=== PATIENT | female | born 1950 | race Two or more races ===

== ENCOUNTER 2017-01-29 10:30 | Day surgery (SDC) | payer MEDICARE, BC ==
[2017-01-22 15:26] VITALS: BMI 36.2
[~2017-01-29 10:30] MED LIST: CLINDAMYCIN 600 MG in SODIUM CHLORIDE 0.9% IRRIGATIO 250 ML IRRIGATION ONE; CLINDAMYCIN 900 MG in DEXTROSE 5% IN WATER 50 ML IVPB ONE; LACTATED RINGERS 1,000 ML IV SCH; SODIUM CHLORIDE 0.9% 1,000 ML IV SCH
[2017-01-29 12:09] LABS: INR 2.3 (<1.2); Prothrombin Time 21.7 sec (9.0-12.0)
[2017-01-29] MEDS ORDERED: MIDAZOLAM 2 MG/2 ML VIAL ONE (13:39)
[2017-01-29] MEDS ORDERED: fentaNYL (PF) 50 MCG/ML 2 ML AMP ONE (13:39)
[2017-01-29] MEDS ORDERED: PROPOFOL 10 MG/ML 20 ML VIAL IV ONE (13:39)
[2017-01-29] MEDS ORDERED: ePHEDrine SULFATE/0.9% NACL/PF 50 MG/5 ML SYRINGE IV ONE (13:39)
[2017-01-29] MEDS ORDERED: LIDOCAINE 1% INJ 10MG/ML (20 ML MDV) ONE (13:39)
[2017-01-29] MEDS ORDERED: IODIXANOL 270 MG/ML 50 ML ML IV ONE (13:55)
[2017-01-29] MEDS ORDERED: LIDOCAINE 1% INJ 10MG/ML (20 ML MDV) SQ ONE (14:18)
[2017-01-29] MEDS ORDERED: ACETAMINOPHEN TAB 325 MG TAB PO PRN (15:04)
--- NOTE | 2017-01-29 15:37 | CE ---
CARDIAC ELECTROPHYSIOLOGY REPORT 66-year-old female with severe ischemic cardiomyopathy that has not improved despite appropriate medical treatment for heart failure and cardiomyopathy. She underwent single-chamber ICD implantation for primary prevention of sudden cardiac . She is on appropriate guideline directed medical treatment. Patient brought to the EP lab in a fasting state. Written informed consent was obtained prior to the procedure. The left shoulder area was prepped and draped as per protocol. 1% lidocaine was used for local anesthesia. A 4 cm incision was made parallel to the deltopectoral groove about 1.5 cm medial to it. The incision was carried down to the level of the pectoralis muscle. A subfascial pocket was made. Hemostasis was assured. The left axillary vein was accessed at a single point under fluoroscopy and via appropriately-sized introducer sheath. A lead was positioned in the RV apex and screwed in. This was a [employer] reliance Forsite SG Active Fix 59 cm lead bipolar, model #0292 serial #[id number]. This was secured to the underlying pectoralis muscle and connected to the generator ([employer] Inogen extended longevity ICD DF4-VR model number D140 serial #[id number]. The R-waves were 6.4 mV. Pacing threshold 0.8 V at 0.5 milliseconds. Pacing impedance of 867 ohms. 10 V test negative. The leads and generator were placed in subfascial pocket and the wound was closed in 3 layers and dressed per protocol. The device was then programmed empirically to Madit-RIT program. DFT testing was withheld at this time. We will bring him back in about 3 months for further maximization of heart failure medications. MMODL / IJN: [id number] /
--- NOTE | 2017-01-29 15:43 | CE ---
CARDIAC ELECTROPHYSIOLOGY REPORT January 29, [address] Gallardo: I had the pleasure of seeing Nicky Ballesteros in electrophysiology in follow up. As you know, Nicky has severe ischemic cardiomyopathy, ejection fraction 30%, class II heart failure symptoms whose left ventricular ejection fraction did not improve despite medical treatment and she underwent a single-chamber ICD implantation for primary prevention of sudden cardiac . She will continue to follow with you. I will see her again in about a week's time in the Device Clinic. No changes in medications at this time. Thank you for entrusting me in the care of your patient. Warm regards. Sincerely, MMODL / IJN: [id number] /
[2017-01-29] MEDS ORDERED: ACETAMINOPHEN IV (For NPO) 1,000 MG in EMPTY BAG 1 BAG IVPB ONE (16:00)
[2017-01-29] MEDS: ceFAZolin IN SWFI 2 GM/20 ML SYRINGE IVP SCH ×2 (18:08→18:26)
[2017-01-29] MEDS: CLINDAMYCIN 600 MG in DEXTROSE 5% IN WATER 50 ML IVPB SCH ×2 (19:43)
[2017-01-29] MEDS ORDERED: WARFARIN 1.25 MG TAB PO SCH (20:30)
[2017-01-29] MEDS ORDERED: WARFARIN 2.5 MG TAB PO SCH (20:45)
[2017-01-29] MEDS ORDERED: EZETIMIBE 10 MG TAB PO SCH (21:00)
[2017-01-29] MEDS ORDERED: PRAVASTATIN SODIUM 20 MG TAB PO SCH (21:00)
[2017-01-29] MEDS: CARVEDILOL 6.25 MG TAB PO SCH (21:03)
[2017-01-29] MEDS: ASPIRIN 81 MG PO SCH (21:03)
[2017-01-29] MEDS: HYDROcodone/APAP 5-325MG 1 EACH TAB PO PRN (23:46)
[2017-01-30] MEDS: CLINDAMYCIN 600 MG in DEXTROSE 5% IN WATER 50 ML IVPB SCH ×6 (02:35→13:30)
--- NOTE | 2017-01-30 06:52 | XR ---
EXAMINATION TYPE: XR chest 2V DATE OF EXAM: 01/30/2017 COMPARISON: NONE HISTORY: Postdefibrillator placement. TECHNIQUE: Frontal and lateral views of the chest are obtained. FINDINGS: There is no focal air space opacity, pleural effusion, or pneumothorax seen. No pulmonary vascular congestion. The cardiac silhouette size is within normal limits. New singular ventricular lead left-sided cardiac device is present with no postprocedural pneumothorax identified. The osseou s structures are intact with mild multilevel degenerative changes of thoracic spine and acromioclavic ular joints. IMPRESSION: New single ventricular lead left-sided cardiac device with no postprocedural pneumothora x or pulmonary vascular congestion.
[2017-01-30] MEDS: HYDROcodone/APAP 5-325MG 1 EACH TAB PO PRN (07:19)
[2017-01-30] MEDS: ASPIRIN 81 MG PO SCH (08:07)
[2017-01-30] MEDS: CARVEDILOL 6.25 MG TAB PO SCH (08:07)
[2017-01-30 08:27] VITALS: PULSE 61; RESP 18
--- NOTE | 2017-01-30 08:30 | P.DS ---
Providers Attending physician: Adan Gale Primary care physician: [facility] Course: Is doing well. She denies any chest discomfort no undue shortness of breath no dizziness or lightheadedness She is resting comfortably in bed. There is no focal swelling in the ICD site dressing Review of systems: No fever chills or rigors, no cough, phlegm or expectoration , no nausea, vomiting or diarrhea, no hematuria, dysuria, no musculoskeletal complaints, no strokes or seizures, no skin lesions. On examination She is afebrile 98.1F, pulse rate in the 60s, respirations are normal blood pressure 107/58 mmHg Heart sounds are normal Breath sounds are clear Abdomen soft nontender Extremities warm no edema ICD site is healing well I educated her on the post op restrictions in detail Impression Ischemic cardiomyopathy CHF class II Patient is on guideline directed medical treatment Status post ICD implantation for primary prevention of sudden cardiac ICD functioning normally my plan is to discharge today after completion of IV antibiotics. Chest x-ray report was reviewed. No changes in medications. Follow-up in the device clinic in 5-7 days and DFT testing in about 3 months Patient Condition at Discharge: Stable Plan - Discharge Summary Discharge Rx Participant: Yes New Discharge Prescriptions: Continue Warfarin [Coumadin] 2.5 mg PO MO Aspirin [Adult Low Dose Aspirin EC] 81 mg PO BID Spironolactone [Aldactone] 25 mg PO QAM Pravastatin Sodium [Pravachol] 20 mg PO HS Losartan Potassium [Cozaar] 150 mg PO QAM Ezetimibe [Zetia] 10 mg PO HS Carvedilol [Coreg] 6.25 mg PO BID Warfarin [Coumadin] 1.25 mg PO [facility] Discharge Medication List Aspirin [Adult Low Dose Aspirin EC] 81 mg PO BID 01/22/17 [History] Carvedilol [Coreg] 6.25 mg PO BID 01/22/17 [History] Ezetimibe [Zetia] 10 mg PO HS 01/22/17 [History] Losartan Potassium [Cozaar] 150 mg PO QAM 01/22/17 [History] Pravastatin Sodium [Pravachol] 20 mg PO HS 01/22/17 [History] Spironolactone [Aldactone] 25 mg PO QAM 01/22/17 [History] Warfarin [Coumadin] 1.25 mg PO SUTUTH 01/22/17 [History] Warfarin [Coumadin] 2.5 mg PO MOWEFRSA 01/22/17 [History] Follow up Appointment(s)/Referral(s): Adan Gale MD [STAFF PHYSICIAN] - 1 Week Activity/Diet/Wound Care/Special Instructions: PATIENT EDUCATION MATERIAL Instructions following a heart rhythm device implant. 1. Keep dressing DRY for ONE week. You may cover the area with Saran or Cling Wrap, prior to a shower. 2. The dressing will be removed after one week in the Device Clinic @ [facility]. Absorbable sutures were used to close the wound. 3. Avoid raising the [left] arm above the shoulder level. [6 week restriction] 4. Avoid arm movements, like backscratching, rubbing the head, or pulling on a cord. (6 weeks restriction) 5. Gentle range of motion movements of the shoulder, closest to the incision should be performed to avoid a frozen shoulder. (Pendulum exercises of the shoulder) 6. The opposite arm may be used freely. 7. Avoid driving for 7 days. 8. Avoid activities such as golfing, swimming, weed whacking, lifting more than 10 pounds weight, bowling, gymnastics and weight training/lifting. (6 weeks restriction) 9. Activities such as wood chopping with an axe, pull-ups in the gymnasium, power lifting, arc-welding, being close to home induction cooktops will always be a problem. In case of any problems, please call [facility], Naeem Grayson, @ [phone], Attention: Device Clinic Clinic in one week. No changes in medications. Follow-up with Dr. Naidu in about 3 months Discharge Disposition: HOME SELF-CARE
[2017-01-30] MEDS ORDERED: SPIRONOLACTONE 25 MG TAB PO SCH (09:00)
[2017-01-30] MEDS ORDERED: LOSARTAN 50 MG TAB PO SCH (09:00)
[2017-01-30 11:27] VITALS: BP 90/52; TEMP 98
[2017-01-30] MEDS ORDERED: WARFARIN 2.5 MG TAB PO SCH (18:00)
== END 2017-01-30 14:30 | disposition home or self-care (01) ==
LOC: CATHEP 10:30 → 3OBS 15:01 → CATHEP 01-30 14:30
PROVIDERS: ATTEND Internal Medicine Clinical Cardiac Electrophysiology
DX: I25.5 Ischemic cardiomyopathy (principal); I11.0 Hypertensive heart disease with heart failure; I50.22 Chronic systolic (congestive) heart failure; Z00.6 Encounter for examination for normal comparison and control in clinical research program; I25.10 Atherosclerotic heart disease of native coronary artery without angina pectoris; Z95.5 Presence of coronary angioplasty implant and graft; I25.2 Old myocardial infarction; I48.0 Paroxysmal atrial fibrillation; I49.3 Ventricular premature depolarization; E78.5 Hyperlipidemia, unspecified; I73.9 Peripheral vascular disease, unspecified; Z82.49 Family history of ischemic heart disease and other diseases of the circulatory system; Z88.0 Allergy status to penicillin; Z88.2 Allergy status to sulfonamides; Z87.891 Personal history of nicotine dependence; Z79.01 Long term (current) use of anticoagulants; Z79.02 Long term (current) use of antithrombotics/antiplatelets; Z79.899 Other long term (current) drug therapy; Z88.1 Allergy status to other antibiotic agents
CPT/HCPCS: 33249; 85610; 71020; C1892; C1895; C1769; C1722; J2250; Q9966; J2001; J3010; J2704

== ENCOUNTER 2017-04-22 06:01 | Day surgery (SDC) | payer MEDICARE, BC ==
[2017-04-15 16:21] VITALS: BMI 36.2
[~2017-04-22 06:01] MED LIST changes: -CLINDAMYCIN 600 MG in SODIUM CHLORIDE 0.9% IRRIGATIO 250 ML IRRIGATION ONE; -CLINDAMYCIN 900 MG in DEXTROSE 5% IN WATER 50 ML IVPB ONE
[2017-04-22] MEDS ORDERED: SODIUM CHLORIDE 0.9% 500 ML IV ONE (06:23)
[2017-04-22 06:56] LABS: INR 2.9 (<1.2); Prothrombin Time 26.4 sec (9.0-12.0)
[2017-04-22] MEDS ORDERED: MIDAZOLAM 2 MG/2 ML VIAL ONE (07:21)
[2017-04-22] MEDS ORDERED: PROPOFOL 10 MG/ML 20 ML VIAL IV ONE (07:21)
[2017-04-22 08:15] VITALS: TEMP 97.2
[2017-04-22 08:17] VITALS: RESP 16
--- NOTE | 2017-04-22 08:20 | P.PCN ---
Preoperative Diagnosis: ICD interrogation/DFT testing [email or web address] device in origin ICD, D 140/025106 Single-chamber ICD Ischemic cardio myopathy class II CHF stable paroxysmal atrial fibrillation known CAD, old myocardial infarction status post single chamber ICD about 3 months back patient admitted for ICD interrogation and DFT testing under anesthesia R waves 5.8 mV Pacing impedance 760 ohms Pacing threshold 0.6 V at 0.4 ms Shocking impedance 87 ohms DFT testing and anesthesia did shock and T wave protocol was used to induce ventricular fibrillation. At the sensitivity 1.5 mV VF was not detected adequately resulting in lack of therapy and need for external shock defibrillated the patient Intermittent pacing noted at that time Repeat DFT at the sensitivity of 0.8 mV VF was detected adequately and appropriately at 0.8 mV, successfully internally defibrillated with an 11 J shock. Charge time of 1.8 seconds, shocking impedance 81 ohms, lead polarity initial No post shock noise ICD was reprogrammed to sensitivity of 0.4 mV. MADIT RIT parameters programmed Impression Failed sensing of ventricular fibrillation at the sensitivity of 1.5 mV Successful sensing of ventricular fibrillation at the sensitivity of 0.8 mV and DFT at or below 11 J Single-chamber ICD interrogated and reprogrammed to sensitivity 0.4 mV Plan Repeat testing to check adequacy of sensing at 1.0 mV in about 6 months Watch R wave sensing as an outpatient Currently R waves are above 5.0 mV Disposition: same day
--- NOTE | 2017-04-22 08:52 | P.PCN ---
Preoperative Diagnosis: Fluoroscopy of lead, ICD Patient underwent DFT testing. Non-sensing of ventricular fibrillation at sensitivity of 1.5 mV, and a rescue external shock delivered. Following that prior to repeat DFT testing at the sensitivity of 0.8 mV Cinefluoroscopy of the leads was performed. The fluoroscopic images were compared with post implant images and were unchanged. Lead position stable. Plan Proceed with repeat DFT testing at the sensitivity of 0.8 mV
[2017-04-22 08:53] VITALS: PULSE 55
[2017-04-22 09:46] VITALS: BP 128/70
== END 2017-04-22 09:45 | disposition home or self-care (01) ==
LOC: CATHEP 06:01
PROVIDERS: ATTEND Internal Medicine Clinical Cardiac Electrophysiology
DX: Z45.02 Encounter for adjustment and management of automatic implantable cardiac defibrillator (principal); I25.119 Atherosclerotic heart disease of native coronary artery with unspecified angina pectoris; Z95.5 Presence of coronary angioplasty implant and graft; I25.2 Old myocardial infarction; I11.0 Hypertensive heart disease with heart failure; I50.22 Chronic systolic (congestive) heart failure; I25.5 Ischemic cardiomyopathy; I48.0 Paroxysmal atrial fibrillation; E78.5 Hyperlipidemia, unspecified; I73.9 Peripheral vascular disease, unspecified; Z82.49 Family history of ischemic heart disease and other diseases of the circulatory system; Z79.01 Long term (current) use of anticoagulants; Z79.82 Long term (current) use of aspirin; Z79.899 Other long term (current) drug therapy; Z88.0 Allergy status to penicillin; Z88.2 Allergy status to sulfonamides; Z88.1 Allergy status to other antibiotic agents; Z87.891 Personal history of nicotine dependence
CPT/HCPCS: 93642; 85610; J2250; J2704

== ENCOUNTER → 2017-07-19 | Outpatient (CLI) | payer MEDICARE, BC ==
--- NOTE | 2017-07-22 10:01 | MM ---
Reason for exam: screening (asymptomatic). Last mammogram was performed 3 years and 4 months ago. History: Patient is postmenopausal. Physical Findings: A clinical breast exam by your physician is recommended on an annual basis and results should be correlated with mammographic findings. MG 3D Screening Mammo W/Cad Bilateral CC and MLO view(s) were taken. Prior study comparison: April 02, 2014, mammogram, performed at [place]. December 05, 2012, mammogram, performed at [place]. There are scattered fibroglandular densities. Finding: There is a typically benign 11 mm high density, circumscribed mass located 7-8 cm from the nipple in the middle position of the right breast consistent with possible enlarging cyst. New finding since April 02, 2014 and December 05, 2012. ASSESSMENT: Incomplete: need additional imaging evaluation, BI-RAD 0 RECOMMENDATION: Ultrasound of the right breast. [facility] will attempt to contact patient to return for ultrasound.
== END | disposition home or self-care (01) ==
LOC: RADMAMWWP 12:03
PROVIDERS: ATTEND Family Medicine
DX: Z12.31 Encounter for screening mammogram for malignant neoplasm of breast (principal)
CPT/HCPCS: 77063; 77067

== ENCOUNTER → 2017-07-25 | Outpatient (CLI) | payer MEDICARE, BC ==
--- NOTE | 2017-07-26 07:43 | USB ---
Reason for exam: additional evaluation requested from abnormal screening. History: Patient is postmenopausal. Physical Findings: Nurse did not find any significant physical abnormalities on exam. US Breast Workup RT Right complete breast ultrasound includes all four quadrants, the retroareolar region and axilla. Finding demonstrates a 8 x 6 x 10mm oval, cystic lesion t 8 o'clock, simple cyst. These results were verbally communicated with the patient and result sheet given to the patient on 07/25/17. ASSESSMENT: Benign, BI-RAD 2 RECOMMENDATION: Return to routine screening mammogram schedule for both breasts.
== END | disposition home or self-care (01) ==
LOC: RADUSWWP 14:32
PROVIDERS: ATTEND Family Medicine
DX: R92.8 Other abnormal and inconclusive findings on diagnostic imaging of breast (principal)

== ENCOUNTER → 2017-10-23 | Outpatient (CLI) | payer MEDICARE, BC ==
[2017-10-23 11:00] LABS: Potassium 5.2 mmol/L (3.5-5.1)
== END | disposition home or self-care (01) ==
LOC: LABWHC1 10:22
PROVIDERS: ATTEND Internal Medicine Clinical Cardiac Electrophysiology
DX: I42.9 Cardiomyopathy, unspecified (principal); I50.9 Heart failure, unspecified
CPT/HCPCS: 36415; 80048; 80061

== ENCOUNTER → 2017-10-28 | Day surgery (SDC) | payer MEDICARE, BC ==
[2017-10-25 09:47] VITALS: BMI 35.3
[~2017-10-28] MED LIST changes: +PROPOFOL 10 MG/ML 20 ML VIAL IV ONE
[2017-10-28 10:37] VITALS: PULSE 55; RESP 18
[2017-10-28 11:45] LABS: INR 2.6 (<1.2); Prothrombin Time 23.4 sec (9.0-12.0)
--- NOTE | 2017-10-28 13:15 | P.PCN ---
Preoperative Diagnosis: Diagnosis Cardio myopathy status post ICD implant Under sensing of ventricular fibrillation at the sensitivity 1.5 mV Patient brought in for repeat testing under anesthesia at the sensitivity of 1.0 mV Patient has a [employer] device. DFT testing previously revealed under sensing at a sensitivity 1.5 mV. Reasonably adequate sensing at 0.8 mV in the past R waves greater than 5 mV pacing threshold 0.6 V at 0.4 ms and pacing impedance of 832 ohms, shocking impedance 89 ohms ventricular pacing less than 1% A shock and T wave protocol was used to induce ventricular fibrillation this was adequately and appropriately detected at the sensitivity of 1 mV with 3-4 dropouts and successfully defibrillated in a timely manner with 11 J shock, charge time 1.8 seconds shocking impedance 81 ohms initial lead polarity, no post shock noise The device was then reprogrammed to a sensitivity of 0.4 mV with MADIT RIT protocol programmed
[2017-10-28 13:46] VITALS: BP 134/68
== END | disposition home or self-care (01) ==
LOC: CATHEP 10:18
PROVIDERS: ATTEND Internal Medicine Clinical Cardiac Electrophysiology
DX: Z45.02 Encounter for adjustment and management of automatic implantable cardiac defibrillator (principal); I25.5 Ischemic cardiomyopathy; I11.0 Hypertensive heart disease with heart failure; I50.22 Chronic systolic (congestive) heart failure; E78.5 Hyperlipidemia, unspecified; I73.9 Peripheral vascular disease, unspecified; I25.119 Atherosclerotic heart disease of native coronary artery with unspecified angina pectoris; I48.0 Paroxysmal atrial fibrillation; N19 Unspecified kidney failure; F17.210 Nicotine dependence, cigarettes, uncomplicated; Z95.5 Presence of coronary angioplasty implant and graft; Z82.49 Family history of ischemic heart disease and other diseases of the circulatory system; Z79.01 Long term (current) use of anticoagulants; Z79.82 Long term (current) use of aspirin; Z79.899 Other long term (current) drug therapy; Z88.0 Allergy status to penicillin; Z88.2 Allergy status to sulfonamides; Z88.1 Allergy status to other antibiotic agents
CPT/HCPCS: 93642; 76000; 85610; J2704

== ENCOUNTER 2017-11-21 19:17 | Inpatient (IN) | payer MEDICARE, BC ==
[2017-11-21] MEDS ORDERED: SODIUM CHLORIDE 0.9% 500 ML IV ONE (19:54)
--- NOTE | 2017-11-21 19:55 | ED ---
General Adult HPI - General Chief complaint: Recheck/Abnormal Lab/Rx Stated complaint: High potassium-sent by [facility] Time Seen by Provider: 11/21/17 19:32 Source: patient, family, RN notes reviewed, old records reviewed Mode of arrival: ambulatory Limitations: no limitations - History of Present Illness Initial comments: 67-year-old female presents for evaluation of abnormal outpatient laboratory study. Patient was called by her primary care physician with elevated potassium at 7.3. She had lab testing done earlier this week and had a potassium of 7.1. Patient is asymptomatic. She denies palpitations. Denies chest pain. Denies weakness. Patient states she does have history of kidney issues, this is being followed by her primary care physician. She has not seen a color grinder in the past. Denies any nausea vomiting. Denies diarrhea. - Related Data Home Medications Medication Instructions Recorded Confirmed Aspirin [Adult Low Dose Aspirin EC] 81 mg PO BID 01/22/17 11/21/17 Carvedilol [Coreg] 6.25 mg PO BID 01/22/17 11/21/17 Ezetimibe [Zetia] 10 mg PO HS 01/22/17 11/21/17 Losartan Potassium [Cozaar] 150 mg PO QAM 01/22/17 11/21/17 Pravastatin Sodium [Pravachol] 20 mg PO HS 01/22/17 11/21/17 Spironolactone [Aldactone] 25 mg PO QAM 01/22/17 11/21/17 Warfarin Sodium [Jantoven] 1.25 mg PO SUTUTH 11/21/17 11/21/17 Warfarin Sodium [Jantoven] 2.5 mg PO MOWEFRSA 11/21/17 11/21/17 Allergies Allergy/AdvReac Type Severity Reaction Status Date / Time aspartame Allergy hives, Verified 11/21/17 19:40 [From Nutrasweet Aspartame] tongue swelling nickel Allergy Rash/Hives Verified 11/21/17 19:40 Penicillins Allergy Rash/Hives Verified 11/21/17 19:40 Sulfa (Sulfonamide Allergy "bleeding Verified 11/21/17 19:40 Antibiotics) in eyes" Tetracyclines Allergy rapid Verified 11/21/17 19:40 breathing egg AdvReac emesis Verified 11/21/17 19:40 Milk Containing Products AdvReac gi upset Verified 11/21/17 19:40 Review of Systems ROS Statement: Those systems with pertinent positive or pertinent negative responses have been documented in the HPI. ROS Other: All systems not noted in ROS Statement are negative. Past Medical History Past Medical History: Myocardial Infarction ([place]), Thyroid Disorder Additional Past Medical History / Comment(s): SEE DR KERVIN Rush&P, STATES SILENT MO, RADIATED THYROID Last Myocardial Infarction Date:: 1997 History of Any Multi-Drug Resistant Organisms: None Reported Past Surgical History: AICD, Heart Catheterization With Stent Additional Past Surgical History / Comment(s): STATES 6-7 STENTS, [employer] AICD Past Anesthesia/Blood Transfusion Reactions: No Reported Reaction Date of Last Stent Placement:: 2014 Type of Cardiac Device: AICD Device Placement Date:: 01/29/17 Past Psychological History: No Psychological Hx Reported Smoking Status: Former smoker Past Alcohol Use History: None Reported Past Drug Use History: None Reported - Past Family History Sister(s) Family Medical History: Cancer Additional Family Medical History / Comment(s): PANCREAS General Exam Limitations: no limitations General appearance: alert, in no apparent distress Head exam: Present: atraumatic, normocephalic Eye exam: Present: normal appearance, PERRL, EOMI ENT exam: Present: normal exam Neck exam: Present: normal inspection. Absent: tenderness, meningismus Respiratory exam: Present: normal lung sounds bilaterally. Absent: respiratory distress, wheezes Cardiovascular Exam: Present: regular rate, normal rhythm GI/Abdominal exam: Present: soft. Absent: distended, tenderness, guarding Back exam: Present: normal inspection Neurological exam: Present: alert, oriented X3, CN II-XII intact. Absent: motor sensory deficit Psychiatric exam: Present: normal affect, normal mood Skin exam: Present: warm, dry, intact. Absent: cyanosis, diaphoretic Course Vital Signs 11/21/17 11/21/17 11/21/17 19:24 19:50 20:33 Temperature 98.4 F Pulse Rate 67 57 L 58 L Respiratory 18 18 18 Rate Blood Pressure 127/63 141/64 141/65 O2 Sat by Pulse 99 99 97 Oximetry EKG Findings - EKG Comments: EKG Findings:: EKG: Normal sinus rhythm low voltage QRS, rate of 62, IN interval 200, QRS duration 90, QTC 351, no ST segment elevation Medical Decision Making - Medical Decision Making 67-year-old female presenting with hyperkalemia. Laboratory studies are repeated in the emergency department, normal CBC, therapeutic INR, potassium is 6.2, creatinine is 1.65 which is slightly above patient's baseline. She is given IV hydration, Kayexalate, and Lasix in the emergency department. She will be placed in observation for continued IV hydration, nephrology consultation, and repeat potassium in the morning. - Lab Data Result diagrams: 11/21/17 19:48 11/21/17 19:48 Lab Results 11/21/17 11/21/17 11/21/17 Range/Units 19:48 19:48 19:48 WBC 7.8 (3.8-10.6) k/uL RBC 4.36 (3.80-5.40) m/uL Hgb 13.2 (11.4-16.0) gm/dL Hct 40.1 (34.0-46.0) % MCV 91.8 (80.0-100.0) fL MCH 30.3 (25.0-35.0) pg MCHC 33.0 (31.0-37.0) g/dL RDW 12.7 (11.5-15.5) % Plt Count 219 (150-450) k/uL Neutrophils % 67 % Lymphocytes % 24 % Monocytes % 6 % Eosinophils % 2 % Basophils % 1 % Neutrophils # 5.2 (1.3-7.7) k/uL Lymphocytes # 1.8 (1.0-4.8) k/uL Monocytes # 0.5 (0-1.0) k/uL Eosinophils # 0.1 (0-0.7) k/uL Basophils # 0.1 (0-0.2) k/uL PT 18.2 H (9.0-12.0) sec INR 2.0 H (<1.2) APTT 33.4 H (22.0-30.0) sec Sodium 140 (137-145) mmol/L Potassium 6.2 H* (3.5-5.1) mmol/L Chloride 110 H (98-107) mmol/L Carbon Dioxide 23 (22-30) mmol/L Anion Gap 7 mmol/L BUN 38 H (7-17) mg/dL Creatinine 1.65 H (0.52-1.04) mg/dL Est GFR (CKD-EPI)AfAm 37 (>60 ml/min/1.73 sqM) Est GFR (CKD-EPI)NonAf 32 (>60 ml/min/1.73 sqM) Glucose 146 H (74-99) mg/dL Calcium 9.5 (8.4-10.2) mg/dL Magnesium 1.9 (1.6-2.3) mg/dL Total Bilirubin 0.2 (0.2-1.3) mg/dL AST 22 (14-36) U/L ALT 33 (9-52) U/L Alkaline Phosphatase 81 (38-126) U/L Total Protein 6.6 (6.3-8.2) g/dL Albumin 4.2 (3.5-5.0) g/dL Disposition Clinical Impression: Hyperkalemia, Chronic kidney disease Disposition: ADMITTED IP TO THIS [facility] Condition: Stable Is patient prescribed a controlled substance at d/c from ED?: No Referrals: Lucrecia Gallardo MD [Primary Care Provider] - 1-2 days Decision to Admit Reason: Admit from EC Decision Date: 11/21/17 Decision Time: 21:20
[2017-11-21 19:57] LABS: Basophils # (A) 0.1 k/uL (0-0.2); Basophils % (A) 1 %; Eosinophils # (A) 0.1 k/uL (0-0.7); Eosinophils % (A) 2 %; HCT 40.1 % (34.0-46.0); HGB 13.2 gm/dL (11.4-16.0); Lymphocytes # (A) 1.8 k/uL (1.0-4.8); Lymphocytes % (A) 24 %; MCH 30.3 pg (25.0-35.0); MCV 91.8 fL (80.0-100.0); Mean Platelet Volume 7.2; Monocytes # (A) 0.5 k/uL (0-1.0); Monocytes % (A) 6 %; Neutrophils # (A) 5.2 k/uL (1.3-7.7); Neutrophils % (A) 67 %; Platelet Count 219 k/uL (150-450); RBC 4.36 m/uL (3.80-5.40); RDW 12.7 % (11.5-15.5); WBC 7.8 k/uL (3.8-10.6)
[2017-11-21 20:09] LABS: Albumin 4.2 g/dL (3.5-5.0); Calcium 9.5 mg/dL (8.4-10.2); Magnesium 1.9 mg/dL (1.6-2.3); Total Bilirubin 0.2 mg/dL (0.2-1.3); Total Protein 6.6 g/dL (6.3-8.2)
[2017-11-21 20:11] LABS: Potassium 6.2 mmol/L (3.5-5.1)
[2017-11-21 20:12] LABS: Partial Thromboplastin Time 33.4 sec (22.0-30.0); Prothrombin Time 18.2 sec (9.0-12.0)
[2017-11-21] MEDS ORDERED: SODIUM POLYSTYRENE SULFONATE 15 GM/60 ML BOTTLE PO ONE (20:56)
[2017-11-21] MEDS ORDERED: FUROSEMIDE 10 MG/ML 2 ML VIAL IV STA (20:57)
[2017-11-21] MEDS ORDERED: NALOXONE 0.4 MG/ML 1 ML VIAL IV PRN (21:16)
[2017-11-21] MEDS ORDERED: ACETAMINOPHEN TAB 325 MG TAB PO PRN (21:16)
[2017-11-21] MEDS: SODIUM CHLORIDE 0.9% 1,000 ML IV SCH (21:23)
[2017-11-21 22:35] VITALS: BMI 36.1
[2017-11-22 06:01] LABS: Basophils % (A) 1 %; Eosinophils # (A) 0.1 k/uL (0-0.7); Eosinophils % (A) 1 %; HCT 38.7 % (34.0-46.0); HGB 12.2 gm/dL (11.4-16.0); Lymphocytes # (A) 1.9 k/uL (1.0-4.8); Lymphocytes % (A) 28 %; MCH 29.7 pg (25.0-35.0); MCHC 31.6 g/dL (31.0-37.0); MCV 94.2 fL (80.0-100.0); Mean Platelet Volume 6.7; Monocytes # (A) 0.6 k/uL (0-1.0); Monocytes % (A) 8 %; Neutrophils # (A) 4.1 k/uL (1.3-7.7); Neutrophils % (A) 60 %; Platelet Count 190 k/uL (150-450); RBC 4.11 m/uL (3.80-5.40); RDW 12.4 % (11.5-15.5); WBC 6.8 k/uL (3.8-10.6)
[2017-11-22 06:15] LABS: Albumin 3.8 g/dL (3.5-5.0); Calcium 8.6 mg/dL (8.4-10.2); Magnesium 1.7 mg/dL (1.6-2.3); Potassium 5.7 mmol/L (3.5-5.1); Total Bilirubin 0.3 mg/dL (0.2-1.3); Total Protein 6.3 g/dL (6.3-8.2)
[2017-11-22 06:23] LABS: INR 2.1 (<1.2); Prothrombin Time 18.9 sec (9.0-12.0)
[2017-11-22] MEDS: SODIUM CHLORIDE 0.9% 1,000 ML IV SCH ×2 (11:00→21:16)
--- NOTE | 2017-11-22 11:39 | XR ---
EXAMINATION TYPE: XR chest 1V DATE OF EXAM: 11/22/2017 COMPARISON: 01/30/2017 INDICATION: CHF TECHNIQUE: Single frontal view of the chest is obtained. FINDINGS: The heart size is mildly prominent. The pulmonary vasculature is normal. The lungs are clear. Pacemaker overlies left chest. IMPRESSION: 1. Mild cardiomegaly. 2. No acute pulmonary process.
--- NOTE | 2017-11-22 13:25 | P.HPIM ---
History of Present Illness H&P Date: 11/22/17 Chief Complaint: Elevated potassium level This is a 67-year-old female, patient of Dr. Gallardo. She has a known past medical history of myocardial infarction, ischemic cardiomyopathy with AICD, coronary disease with cardiac stents, atrial fibrillation and radiation treatment to the thyroid. Patient presents to the emergency room after being informed that she had elevated potassium of 7.3 and outpatient setting. Her PCP told her to present to the ER. In ER patient was given Lasix and Kayexalate. Her potassium was 6.2 has come down to 5.4 nephrology has been consulted. Patient was on Cozaar and Aldactone at home. She has had no new changes to these medications. She has been on these medications for the past year Aldactone and Cozaar have been placed on hold. Patient denies any chest pain or heart palpitations. She denies any other symptoms of any shortness of breath nausea or vomiting. Denies any bowel movement changes or urinary symptoms. EKG normal sinus rhythm. On telemetry she is been in sinus rhythm as well chest x-ray showed no acute abnormality mild cardiomegaly. Creatinine on admission was 1.65 down to 1.53. Patient reports that she had slight abnormality in her kidney functions after being placed on the diuretics. In January 2017 creatinine was 1.2 and October 2017 creatinine 1.39. Patient also placed on normal saline at 75 mL an hour. Patient denies eating significant amount of potassium rich foods. Review of Systems Please refer to HPI otherwise unremarkable Past Medical History Past Medical History: Hyperlipidemia, Hypertension, Myocardial Infarction ([place]), Thyroid Disorder Additional Past Medical History / Comment(s): SEE DR GALEANA H&P, STATES SILENT [place], RADIATED THYROID Last Myocardial Infarction Date:: 1997 History of Any Multi-Drug Resistant Organisms: None Reported Past Surgical History: AICD, Heart Catheterization With Stent Additional Past Surgical History / Comment(s): STATES 6-7 STENTS, [employer] AICD Past Anesthesia/Blood Transfusion Reactions: No Reported Reaction Date of Last Stent Placement:: 2014 Type of Cardiac Device: AICD Device Placement Date:: 01/29/17 Past Psychological History: No Psychological Hx Reported Smoking Status: Former smoker Past Alcohol Use History: None Reported Additional Past Alcohol Use History / Comment(s): QUIT SMOKING 1999, SMOKED 1/ 2PPD FROM AGE 15 Past Drug Use History: None Reported - Past Family History Sister(s) Family Medical History: Cancer Additional Family Medical History / Comment(s): PANCREAS Medications and Allergies Home Medications Medication Instructions Recorded Confirmed Type Aspirin [Adult Low Dose Aspirin EC] 81 mg PO BID 01/22/17 11/21/17 History Carvedilol [Coreg] 6.25 mg PO BID 01/22/17 11/21/17 History Ezetimibe [Zetia] 10 mg PO HS 01/22/17 11/21/17 History Losartan Potassium [Cozaar] 150 mg PO QAM 01/22/17 11/21/17 History Pravastatin Sodium [Pravachol] 20 mg PO HS 01/22/17 11/21/17 History Spironolactone [Aldactone] 25 mg PO QAM 01/22/17 11/21/17 History Warfarin Sodium [Jantoven] 1.25 mg PO SUTUTH 11/21/17 11/21/17 History Warfarin Sodium [Jantoven] 2.5 mg PO MOWEFRSA 11/21/17 11/21/17 History Allergies Allergy/AdvReac Type Severity Reaction Status Date / Time aspartame Allergy hives, Verified 11/21/17 19:40 [From Nutrasweet Aspartame] tongue swelling nickel Allergy Rash/Hives Verified 11/21/17 19:40 Penicillins Allergy Rash/Hives Verified 11/21/17 19:40 Sulfa (Sulfonamide Allergy "bleeding Verified 11/21/17 19:40 Antibiotics) in eyes" Tetracyclines Allergy rapid Verified 11/21/17 19:40 breathing egg AdvReac emesis Verified 11/21/17 19:40 Milk Containing Products AdvReac gi upset Verified 11/21/17 19:40 Physical Exam Vitals: Vital Signs Temp Pulse Pulse Resp BP BP Pulse Ox 11/22/17 08:35 98.3 F 65 18 107/63 96 11/22/17 04:00 52 L 16 11/22/17 00:00 98.1 F 57 L 16 144/70 99 11/21/17 21:37 97.0 F L 52 L 17 143/70 96 11/21/17 21:34 64 18 163/73 96 11/21/17 20:33 58 L 18 141/65 97 11/21/17 19:50 57 L 18 141/64 99 11/21/17 19:24 98.4 F 67 18 127/63 99 Intake and Output 11/21/17 11/22/17 11/22/17 22:59 06:59 14:59 Intake Total 610 400 Balance 610 400 Intake: IV 10 Invasive Line 1 10 Intake, IV Titration 600 Amount Sodium Chloride 0.9% 1, 600 000 ml @ 75 mls/hr IV . [id number] [facility] Rx#:[id number] Oral 400 Other: Voiding Method Toilet # Voids 1 Weight 95.4 kg 95.4 kg Head normocephalic Neck supple Lungs clear to auscultation bilaterally no wheezing or crackles Heart regular rate and rhythm S1-S2, no rub or gallop Abdomen is soft nontender nondistended positive bowel sounds no hepatosplenomegaly Extremities no edema Neuro alert and orientated to 3 Results CBC & Chem 7: 11/22/17 05:35 11/22/17 09:05 Labs: Abnormal Lab Results - Last 24 Hours (Table) 11/21/17 11/21/17 11/22/17 Range/Units 19:48 19:48 05:35 PT 18.2 H (9.0-12.0) sec INR 2.0 H (<1.2) APTT 33.4 H (22.0-30.0) sec Potassium 6.2 H* 5.7 H (3.5-5.1) mmol/L Chloride 110 H 112 H (98-107) mmol/L Carbon Dioxide 18 L (22-30) mmol/L BUN 38 H 34 H (7-17) mg/dL Creatinine 1.65 H 1.55 H (0.52-1.04) mg/dL Glucose 146 H (74-99) mg/dL 11/22/17 11/22/17 Range/Units 05:35 09:05 PT 18.9 H (9.0-12.0) sec INR 2.1 H (<1.2) APTT (22.0-30.0) sec Potassium 5.4 H (3.5-5.1) mmol/L Chloride (98-107) mmol/L Carbon Dioxide (22-30) mmol/L BUN (7-17) mg/dL Creatinine (0.52-1.04) mg/dL Glucose (74-99) mg/dL Thrombosis Risk Factor Assmnt - Choose All That Apply Any of the Below Risk Factors Present?: Yes Each Factor Represents 1 point: Obesity (BMI >25) Other Risk Factors: Yes Each Risk Factor Represents 2 Points: Age 61-74 years Thrombosis Risk Factor Assessment Total Risk Factor Score: 3 Thrombosis Risk Factor Assessment Level: Moderate Risk Assessment and Plan Assessment: 1. Severe hyperkalemia: Likely secondary to medications including the Aldactone and Cozaar. These medications have been placed on hold. Also related to her acute kidney injury. Nephrology has been consulted. Continue with normal saline at 50 mL an hour. She is also given Lasix and Kayexalate in the ER. Potassium is trending down. Last potassium 5.4. Continue telemetry monitoring 2. Acute kidney injury: Possibly related to diuretics and dehydration. Continue with IV fluids. Aldactone on hold. Nephrology following. 3. History of ischemic cardiomyopathy with AICD 4. History of paroxysmal atrial fibrillation anticoagulated with Coumadin 5. History of myocardial infarction with coronary artery disease and cardiac stents 6. History of radiation to her thyroid GI prophylaxis Pepcid and DVT prophylaxis Coumadin Time with Patient: Greater than 30 (Greater than 60% of the total time spent in counseling and coordination of care.I performed an examination of the patient and discussed their management with the physician Named Account Executive. I have reviewed the Physician Named Account Executive's notes and agree with the documented findings and plan of care)
[2017-11-22] MEDS: CARVEDILOL 6.25 MG TAB PO SCH ×2 (13:45→18:59)
[2017-11-22] MEDS: ASPIRIN 81 MG PO SCH ×2 (13:45→21:11)
--- NOTE | 2017-11-22 13:54 | CONS ---
CONSULTATION REASON FOR CONSULT: Renal failure, hyperkalemia. HISTORY OF PRESENT ILLNESS: Patient is a 67-year-old female who was admitted because outpatient labs showed elevated potassium at 7.3. Patient states she felt fine with no significant muscle weakness, chest pain, shortness of breath, palpitations. Patient states she was recently started on Aldactone as outpatient. She is also maintained on Cozaar and patient admitted to having had significantly low blood pressure reading recently since she had the defibrillator placed. However, patient denied any lightheadedness or dizziness. Blood pressure on this admission was not low, initially systolic was about 143 and 144, currently it is at 107 mmHg. Patient denies any history of kidney diseases. Her serum creatinine was 1.65 on initial admission. She is currently maintained on IV fluids and creatinine is down to 1.5 now. Review of labs shows the previous creatinine in April to be 1.4 and 1.39 in October of 2017. In 2017, a creatinine was 1.0. Patient denied use of any nonsteroidal anti-inflammatory agents. She has received Kayexalate and her potassium is down to 5.4 now. Currently, patient has good urine output. No complaints of diarrhea, nausea, vomiting, abdominal pain, fevers, or chills. PAST MEDICAL HISTORY: Hypertension, coronary artery disease, history of HI, hypothyroidism. PAST SURGICAL HISTORY: AICD placement, previous cardiac catheterization with coronary stent placement. . SOCIAL HISTORY: Patient is a former smoker. No history of drug abuse or alcohol abuse. REVIEW OF SYSTEMS: As per HPI. Other systems negative. MEDICATIONS: At home prior to admission included Zetia, Coreg, aspirin, Cozaar, Pravachol, Aldactone, and Coumadin. ALLERGIES: Are multiple including ASPARTAME, NICKEL, PENICILLIN, SULFA, TETRACYCLINE, EGG, MILK, which cause GI upset. Otherwise, most of the other antibiotics and medications cause rash and hives. PHYSICAL EXAMINATION: Patient is currently comfortable, awake, alert, oriented x3. She is not in any acute distress. Blood pressure was 107/63, heart rate 65 per minute. She is afebrile. Examination of the heart, S1, S2. Examination of the lungs, bilateral breath sounds are heard. Abdomen is soft, nontender. Examination of the lower extremities shows no evidence of edema. MACHINE MAINTENANCE exam is grossly intact. LABS: From this morning show sodium 141, potassium 5.7, chloride 112, CO2 is 18, BUN 34, serum creatinine 1.5, hemoglobin 12.2 g/dL. ASSESSMENT: 1. Acute kidney injury secondary to hypotension, hypoperfusion in the setting of use of angiotensin receptor blockers, currently improved. I will hold off on the Cozaar and continue IV fluids. We will check a urinalysis and an ultrasound of the kidneys as well. Patient is advised to avoid use of any NSAIDs. She did not take any prior to this admission. We can likely resume low-dose angiotensin receptor blockers down the road. 2. Hypotension prior to admission, currently improved. Hold off on antihypertensive medications for now. We will also check orthostatic blood pressure and continue with IV fluids. 3. Hyperkalemia associated with acute kidney injury as well as use of angiotensin receptor blockers and Aldactone in the setting of hypotension and acute kidney injury, currently improved. Patient has received Kayexalate. Her blood sugar is not elevated. I will continue with IV fluids and repeat labs in a.m. Patient is maintained on a low-potassium diet. 4. Mild non-gap metabolic acidosis secondary to renal failure. In this case, worse it may be related to her frequent bowel movements after the Kayexalate. 5. History of hypertension, currently blood pressure is low. Hold off on antihypertensive medications for now. 6. History of hypothyroidism, maintained on supplementation. 7. Cardiac dysrhythmia, maintained on Coumadin, details not clear. Patient follows with Dr. Gale. PLAN: Continue IV fluids. Hold Cozaar. Check UA. Check ultrasound of the kidneys. Repeat labs in a.m. We can likely resume low-dose angiotensin receptor blockers down the road once renal function is stable and there is resolution of hyperkalemia. Thank you for this consultation. We will continue to follow the patient with you during her hospitalization. MMODL / IJN: [id number] /
--- NOTE | 2017-11-22 14:23 | US ---
EXAMINATION TYPE: US kidneys/renal and bladder DATE OF EXAM: 11/22/2017 COMPARISON: NONE CLINICAL HISTORY: RF. EXAM MEASUREMENTS: Right Kidney: 10.6 x 5.3 x 5.3 cm Left Kidney: 9.8 x 4.5 x 4.3 cm Right Kidney: No hydronephrosis, two cysts seen one upper 1.6 x 1.6 x 1.7 cm and one mid 1.8 x 1.4 x 1.4 cm. Left Kidney: difficult to visualize, blends in with surrounding tissue. Bladder: wnl Bilateral Jets seen: Yes IMPRESSION: Simple appearing right renal cysts
[2017-11-22 15:03] LABS: Appearance,Urine Clear (Clear); Bilirubin,Urine Negative (Negative); Blood,Urine Negative (Negative); Color,Urine Colorless; Glucose,Urine (UA) Negative (Negative); Ketones,Urine Negative (Negative); Leukocyte Esterase,Urine Negative (Negative); Nitrite,Urine Negative (Negative); PH, Urine 5.5 (5.0-8.0); Protein,Urine Negative (Negative); Specific Gravity,Urine 1.005 (1.001-1.035); Urobilinogen,Urine <2.0 mg/dL (<2.0)
[2017-11-22] MEDS ORDERED: WARFARIN 2.5 MG TAB PO SCH (18:00)
[2017-11-22] MEDS ORDERED: PRAVASTATIN SODIUM 20 MG TAB PO SCH (21:00)
[2017-11-22] MEDS ORDERED: EZETIMIBE 10 MG TAB PO SCH (21:00)
[2017-11-23] MEDS: CARVEDILOL 6.25 MG TAB PO SCH (06:34)
[2017-11-23 07:46] LABS: Basophils % (A) 1 %; Eosinophils # (A) 0.1 k/uL (0-0.7); Eosinophils % (A) 2 %; HCT 36.6 % (34.0-46.0); HGB 11.7 gm/dL (11.4-16.0); Lymphocytes % (A) 32 %; MCH 29.9 pg (25.0-35.0); MCHC 31.8 g/dL (31.0-37.0); Mean Platelet Volume 6.9; Monocytes # (A) 0.4 k/uL (0-1.0); Monocytes % (A) 7 %; Neutrophils # (A) 3.6 k/uL (1.3-7.7); Neutrophils % (A) 57 %; Platelet Count 201 k/uL (150-450); RDW 12.6 % (11.5-15.5); WBC 6.3 k/uL (3.8-10.6)
[2017-11-23 07:57] LABS: Prothrombin Time 18.3 sec (9.0-12.0)
[2017-11-23 08:09] LABS: Albumin 3.5 g/dL (3.5-5.0); Calcium 8.4 mg/dL (8.4-10.2); Total Bilirubin 0.3 mg/dL (0.2-1.3); Total Protein 5.9 g/dL (6.3-8.2)
[2017-11-23 08:10] VITALS: RESP 16
[2017-11-23 08:14] LABS: Potassium 6.1 mmol/L (3.5-5.1)
[2017-11-23] MEDS: ASPIRIN 81 MG PO SCH (08:34)
--- NOTE | 2017-11-23 10:11 | P.PN ---
Subjective Progress Note Date: 11/23/17 Principal diagnosis: This is a 67-year-old female admitted because of hyperkalemia secondary to combination of Aldactone and Cozaar. She didn't off of the Aldactone for the last 5 days her hyperkalemia persists. Ultrasound shows no evidence of any hydronephrosis. 10.6 cm and 9.8 cm kidneys with few cysts. Patient is on IV fluids and on a renal diet. She is comfortable has no symptoms. Past history significant for hypertension and coronary artery disease hypothyroidism AICD and heart catheterization with stents. Objective - Vital Signs Vital signs: Vital Signs Temp 97.2 F L 11/23/17 08:09 Pulse 67 11/23/17 08:13 Resp 16 11/23/17 08:13 BP 135/60 11/23/17 08:09 Pulse Ox 96 11/23/17 08:09 Intake & Output 11/22/17 11/23/17 11/23/17 18:59 06:59 18:59 Intake Total 1820 630 240 Balance 1820 630 240 Weight 95.5 kg Intake: IV 30 Invasive Line 1 30 Intake, IV Titration 600 600 Amount Sodium Chloride 0.9% 1, 600 600 000 ml @ 75 mls/hr IV . [id number] [facility] Rx#:[id number] Oral 1220 240 Other: Voiding Method Toilet Toilet # Voids 1 1 # Bowel Movements 1 She is awake alert oriented comfortable HEENT exam no JVP neck is supple no facial asymmetry Lungs clear to auscultation percussion good air entry bilaterally Heart sounds are unremarkable for any murmur rub gallop Abdomen soft nontender Extremity exam was no edema Neurologically awake alert oriented Her urine output for the last 24 hours his not documented but she says she is making large amount of urine. Her vital signs are stable blood pressure is in 130s to 109 at its lowest - Labs CBC & Chem 7: 11/23/17 06:59 11/23/17 06:59 Labs: Abnormal Lab Results - Last 24 Hours (Table) 11/23/17 11/23/17 Range/Units 06:59 06:59 PT 18.3 H (9.0-12.0) sec INR 2.0 H (<1.2) Potassium 6.1 H* (3.5-5.1) mmol/L Chloride 114 H (98-107) mmol/L Carbon Dioxide 19 L (22-30) mmol/L BUN 30 H (7-17) mg/dL Creatinine 1.39 H (0.52-1.04) mg/dL Total Protein 5.9 L (6.3-8.2) g/dL Assessment and Plan Assessment: Impression 1. Hyperkalemia secondary to drugs including Aldactone and Cozaar. Persistent of hyperkalemia this morning is rather unexplained as she's been off of the medications. On Aldactone can result in prolonged effect on the tubular cells but in the hospital under a restricted diet it should not have gone up from 5.4- 6.1. Possibility of hemolysis is being considered. 2. Acute kidney injury secondary to medications and low blood pressure improved creatinine has gone up from baseline of 1.47-1.65 and down to 1.39 this morning. 3. Mild drop in hemoglobin from 13.2-11.7 without any obvious bleeding, and likely representing IV fluid dilution Plan- 1. Repeat his labs ensure there is no hemolysis. 2. Maintain on a 2 g potassium restricted diet. 3 maintain IV fluids until repeat labs are 4. She could be discharged if potassium is around 5.5) follow-up in the office in 2 or 3 days with repeat left
[2017-11-23 11:10] LABS: Calcium 8.7 mg/dL (8.4-10.2); Potassium 5.3 mmol/L (3.5-5.1)
--- NOTE | 2017-11-23 11:34 | P.DS ---
Providers Date of admission: 11/21/17 21:17 Expected date of discharge: 11/23/17 Attending physician: Zaid Blanco Consults: 11/21/17 21:18 Consult Physician Routine Consulting Provider: Danitza Alonzo Consult Reason/Comments: Hyperkalemia, chronic kidney disease Do you want consulting provider notified?: Yes Primary care physician: Lucrecia Gallardo Hospital Course: Diagnoses on discharge: 1. Severe hyperkalemia: Likely secondary to medications including the Aldactone and Cozaar. These medications have been placed on hold. Also related to her acute kidney injury. Nephrology has been consulted. Continue with normal saline at 50 mL an hour. She is also given Lasix and Kayexalate in the ER. Potassium is trending down. Last potassium 5.4. Continue telemetry monitoring 2. Acute kidney injury: Possibly related to diuretics and dehydration. Continue with IV fluids. Aldactone on hold. Nephrology following. 3. History of ischemic cardiomyopathy with AICD 4. History of paroxysmal atrial fibrillation anticoagulated with Coumadin 5. History of myocardial infarction with coronary artery disease and cardiac stents 6. History of radiation to her thyroid Hospital course: This is a 67-year-old female, patient of Dr. Gallardo. She has a known past medical history of myocardial infarction, ischemic cardiomyopathy with AICD, coronary disease with cardiac stents, atrial fibrillation and radiation treatment to the thyroid. Patient presents to the emergency room after being informed that she had elevated potassium of 7.3 and outpatient setting. Her PCP told her to present to the ER. In ER patient was given Lasix and Kayexalate. Her potassium was 6.2 has come down to 5.4 nephrology has been consulted. Patient was on Cozaar and Aldactone at home. She has had no new changes to these medications. She has been on these medications for the past year Aldactone and Cozaar have been placed on hold. Patient denies any chest pain or heart palpitations. She denies any other symptoms of any shortness of breath nausea or vomiting. Denies any bowel movement changes or urinary symptoms. EKG normal sinus rhythm. On telemetry she is been in sinus rhythm as well chest x-ray showed no acute abnormality mild cardiomegaly. Creatinine on admission was 1.65 down to 1.53. Patient reports that she had slight abnormality in her kidney functions after being placed on the diuretics. In January 2017 creatinine was 1.2 and October 2017 creatinine 1.39. Patient also placed on normal saline at 75 mL an hour. Patient denies eating significant amount of potassium rich foods. Potassium level came down to 5.3 patient was cleared for discharge by nephrology , she was instructed in details regarding low potassium diet. Patient will be off losartan and Aldactone, her blood pressure remains well controlled and there is no need for replacement for these medications. Patient will be discharged home on 11/23/2017 she will follow-up with her primary care physician Dr. Lucrecia gallardo on Saturday for recheck on her potassium level. Patient Condition at Discharge: Stable Plan - Discharge Summary Discharge Rx Participant: No New Discharge Prescriptions: Continue Aspirin [Adult Low Dose Aspirin EC] 81 mg PO BID Pravastatin Sodium [Pravachol] 20 mg PO HS Ezetimibe [Zetia] 10 mg PO HS Carvedilol [Coreg] 6.25 mg PO BID Warfarin Sodium [Jantoven] 2.5 mg PO MOWEFRSA Warfarin Sodium [Jantoven] 1.25 mg PO SUTUTH Discontinued Spironolactone [Aldactone] 25 mg PO QAM Losartan Potassium [Cozaar] 150 mg PO QAM Discharge Medication List Aspirin [Adult Low Dose Aspirin EC] 81 mg PO BID 01/22/17 [History] Carvedilol [Coreg] 6.25 mg PO BID 01/22/17 [History] Ezetimibe [Zetia] 10 mg PO HS 01/22/17 [History] Pravastatin Sodium [Pravachol] 20 mg PO HS 01/22/17 [History] Warfarin Sodium [Jantoven] 1.25 mg PO SUTUTH 11/21/17 [History] Warfarin Sodium [Jantoven] 2.5 mg PO MOWEFRSA 11/21/17 [History] Follow up Appointment(s)/Referral(s): Adan Gale MD [STAFF PHYSICIAN] - 2 Weeks ( ) Danitza Alonzo MD [STAFF PHYSICIAN] - 1 Week (Please call and schedule follow up appointment during normal business hours. ) Rody Linares NPC [Nurse Practitioner] - 11/27/17 10:30 am (Saturday) Patient Instructions/Handouts: Acute Kidney Injury (DC), Potassium Content of Foods List (DC), Hyperkalemia (DC)
[2017-11-23 12:12] VITALS: BP 140/62; PULSE 59; TEMP 97.6
[2017-11-24] MEDS ORDERED: WARFARIN 2.5 MG TAB PO SCH (18:00)
== END 2017-11-23 13:30 | disposition home or self-care (01) | DRG 641 ==
LOC: EC 19:17 → 6SEL 21:17
PROVIDERS: ADMIT Internal Medicine; ATTEND Internal Medicine
DX: E87.5 Hyperkalemia (principal); N17.9 Acute kidney failure, unspecified; E86.0 Dehydration; T50.0X5A Adverse effect of mineralocorticoids and their antagonists, initial encounter; T46.5X5A Adverse effect of other antihypertensive drugs, initial encounter; T50.2X5A Adverse effect of carbonic-anhydrase inhibitors, benzothiadiazides and other diuretics, initial encounter; E03.9 Hypothyroidism, unspecified; E78.5 Hyperlipidemia, unspecified; E87.2 Acidosis; I12.9 Hypertensive chronic kidney disease with stage 1 through stage 4 chronic kidney disease, or unspecified chronic kidney disease; I25.10 Atherosclerotic heart disease of native coronary artery without angina pectoris; I25.2 Old myocardial infarction; I25.5 Ischemic cardiomyopathy; I48.0 Paroxysmal atrial fibrillation; N18.9 Chronic kidney disease, unspecified; Z79.01 Long term (current) use of anticoagulants; Z79.82 Long term (current) use of aspirin; Z87.891 Personal history of nicotine dependence; Z92.3 Personal history of irradiation; Z95.5 Presence of coronary angioplasty implant and graft; Z95.810 Presence of automatic (implantable) cardiac defibrillator; Z88.0 Allergy status to penicillin; Z88.2 Allergy status to sulfonamides; Z88.1 Allergy status to other antibiotic agents; Z91.012 Allergy to eggs; Z91.011 Allergy to milk products; I95.9 Hypotension, unspecified; Z79.899 Other long term (current) drug therapy
CPT/HCPCS: 36415; 71045; 76770; 80048; 80053; 80061; 81003; 83036; 83735; 84132; 84443; 85025; 85610; 85730; 93005; 96361; 96374; 99285

== ENCOUNTER → 2017-12-02 | Outpatient (CLI) | payer MEDICARE, BC ==
[2017-12-02 09:38] LABS: Calcium 9.5 mg/dL (8.4-10.2); Magnesium 1.8 mg/dL (1.6-2.3); Potassium 4.9 mmol/L (3.5-5.1)
== END | disposition home or self-care (01) ==
LOC: LABWHC1 08:14
PROVIDERS: ATTEND Nurse Practitioner Adult Health
DX: I10 Essential (primary) hypertension (principal)
CPT/HCPCS: 36415; 80048; 83735

== ENCOUNTER → 2017-12-24 | Outpatient (CLI) | payer MEDICARE, BC ==
[2017-12-24 10:45] LABS: Calcium 10.2 mg/dL (8.4-10.2); Potassium 4.8 mmol/L (3.5-5.1)
== END | disposition home or self-care (01) ==
LOC: LABWHC1 08:53
PROVIDERS: ATTEND Nurse Practitioner Adult Health
DX: E87.5 Hyperkalemia (principal); I10 Essential (primary) hypertension
CPT/HCPCS: 36415; 80048

== ENCOUNTER → 2018-07-23 | Outpatient (CLI) | payer MEDICARE ==
--- NOTE | 2018-07-23 14:02 | MM ---
Reason for exam: additional evaluation requested from prior study. Last mammogram was performed 1 year ago. History: Patient is postmenopausal. Excisional biopsy of the left breast, 1998. Physical Findings: Nurse did not find any significant physical abnormalities on exam. MG 3D Diag Mammo W/Cad [facility] Bilateral CC and MLO view(s) were taken. Prior study comparison: July 19, 2017, bilateral MG 3d screening mammo w/cad. April 02, 2014, mammogram, performed at [place]. There are scattered fibroglandular densities. There is a ultrasound proven benign right central outer cyst at middle depth. Benign appearing bilateral calcifications. Left pacemaker noted obscuring the axilla. These results were verbally communicated with the patient and result sheet given to the patient on 07/23/18. ASSESSMENT: Benign, BI-RAD 2 RECOMMENDATION: Routine screening mammogram of both breasts in 1 year.
== END | disposition home or self-care (01) ==
LOC: RADMAMWWP 12:23
PROVIDERS: ATTEND Family Medicine
DX: R92.8 Other abnormal and inconclusive findings on diagnostic imaging of breast (principal)
CPT/HCPCS: 77066; G0279; 77062

== ENCOUNTER → 2019-01-21 | Outpatient (CLI) | payer MEDICARE ==
--- NOTE | 2019-01-21 10:04 | XR ---
EXAMINATION TYPE: XR foot limited RT DATE OF EXAM: 01/21/2019 CLINICAL HISTORY: Foot pain with history of gout TECHNIQUE: Frontal and lateral images of the right foot are obtained. COMPARISON: None FINDINGS: There is no acute fracture/dislocation evident in the right foot. Subcortical cysts are se en of the proximal first right phalanx. Very mild osseous perforation change is present of the distal interphalangeal joints and first metatarsal phalangeal joint. Sclerosis is seen of the first metatar vivian phalangeal joint. There is some focal soft tissue swelling overlying the left fifth metatarsal he ad with subtle osseous erosion. Moderate plantar heel spur. IMPRESSION: 1. No acute fracture or dislocation in the right foot. 2. Mild soft tissue swelling overlying the fifth metatarsal head and subtle osseous erosion. Correlat e for gout or dislocation. Degenerative changes of the forefoot are moderate.
== END | disposition home or self-care (01) ==
LOC: RADXRMAIN 09:23
PROVIDERS: ATTEND Nurse Practitioner
DX: M19.071 Primary osteoarthritis, right ankle and foot (principal); M85.871 Other specified disorders of bone density and structure, right ankle and foot

== ENCOUNTER → 2019-09-25 | Outpatient (CLI) | payer MEDICARE ==
--- NOTE | 2019-09-29 07:35 | MM ---
Reason for exam: screening (asymptomatic). Last mammogram was performed 1 year and 2 months ago. History: Patient is postmenopausal. Excisional biopsy of the left breast, 1998. Physical Findings: A clinical breast exam by your physician is recommended on an annual basis and results should be correlated with mammographic findings. MG 3D Screening Mammo W/Cad Bilateral CC and MLO view(s) were taken. Prior study comparison: July 23, 2018, bilateral MG 3d diag mammo w/cad JULIA. July 19, 2017, bilateral MG 3d screening mammo w/cad. There are scattered fibroglandular densities. There is chronic nodularity in the right breast. Generator device on the left. Punctate dermal calcifications. No significant changes when compared with prior studies. ASSESSMENT: Negative, BI-RAD 1 RECOMMENDATION: Routine screening mammogram of both breasts in 1 year.
== END | disposition home or self-care (01) ==
LOC: RADMAMWWP 14:13
PROVIDERS: ATTEND Family Medicine
DX: Z12.31 Encounter for screening mammogram for malignant neoplasm of breast (principal)
CPT/HCPCS: 77063; 77067

== ENCOUNTER → 2020-08-15 | Outpatient (CLI) | payer MEDICARE ==
[2020-08-15 09:18] LABS: HCT 44.6 % (34.0-46.0); HGB 14.1 gm/dL (11.4-16.0); MCH 28.8 pg (25.0-35.0); MCHC 31.6 g/dL (31.0-37.0); MCV 91.1 fL (80.0-100.0); Mean Platelet Volume 7.5; Platelet Count 215 k/uL (150-450); RBC 4.89 m/uL (3.80-5.40); RDW 13.4 % (11.5-15.5)
[2020-08-15 09:40] LABS: Potassium 4.6 mmol/L (3.5-5.1)
== END | disposition home or self-care (01) ==
LOC: LABPAT 07:58
PROVIDERS: ATTEND Internal Medicine Clinical Cardiac Electrophysiology
DX: Z01.812 Encounter for preprocedural laboratory examination (principal); I25.5 Ischemic cardiomyopathy
CPT/HCPCS: 36415; 80051; 82565; 84520; 85027

== ENCOUNTER 2020-08-22 08:02 | Emergency (ER) | payer MEDICARE ==
[2020-08-22 08:07] VITALS: TEMP 98.7
[2020-08-22] MEDS ORDERED: MORPHINE SULFATE 4 MG/ML SYRINGE IVP STA (08:26)
[2020-08-22] MEDS ORDERED: ONDANSETRON 4 MG/2 ML VIAL IVP STA (08:26)
[2020-08-22] MEDS ORDERED: SODIUM CHLORIDE 0.9% 500 ML 500 ML IV STA (08:27)
--- NOTE | 2020-08-22 08:33 | ED ---
General Adult HPI - General Chief complaint: Extremity Injury, Upper Stated complaint: rt sided arm pain, blurred vision Time Seen by Provider: 08/22/20 08:10 Source: patient Mode of arrival: ambulatory Limitations: no limitations - History of Present Illness Initial comments: 70-year-old female with a past medical history of hyperlipidemia, hypertension, [place] presents to the emergency room for multiple complaints. Patient reports that she has had right arm pain ever since having her Covid injections in April. States it comes and goes. When she seems to use R Becker gets to the point where she can barely lift her arm. She reports yesterday she was getting out of the car and felt a pop and cannot lift her arm up. Patient also reports she checked her blood pressure today before taking her medications and it was 210/110. She also reports that she noticed her vision was better without her glasses. Patient into the emergency room because of her blood pressure. She denies chest pain or shortness of breath. Denies headache.Patient has no other complaints at this time including shortness of breath, chest pain, abdominal pain, nausea or vomiting, headache, or visual changes. - Related Data Home Medications Medication Instructions Recorded Confirmed Aspirin [Adult Low Dose Aspirin EC] 81 mg PO BID 01/22/17 08/22/20 Ezetimibe [Zetia] 10 mg PO HS 01/22/17 08/22/20 Pravastatin Sodium [Pravachol] 20 mg PO HS 01/22/17 08/22/20 carvediloL [Coreg] 6.25 mg PO BID 01/22/17 08/22/20 Warfarin Sodium [Jantoven] 1.25 mg PO TUFR 11/21/17 08/22/20 Warfarin Sodium [Jantoven] 2.5 mg PO [place] 11/21/17 08/22/20 Losartan [Cozaar] 25 mg PO DAILY 08/19/20 08/22/20 Allergies Allergy/AdvReac Type Severity Reaction Status Date / Time aspartame Allergy hives, Verified 08/22/20 09:17 [From Nutrasweet Aspartame] tongue swelling nickel Allergy Rash/Hives Verified 08/22/20 09:17 Penicillins Allergy Rash/Hives Verified 08/22/20 09:17 Sulfa (Sulfonamide Allergy "bleeding Verified 08/22/20 09:17 Antibiotics) in eyes" Tetracyclines Allergy rapid Verified 08/22/20 09:17 breathing egg AdvReac emesis Verified 08/22/20 09:17 Milk Containing Products AdvReac gi upset Verified 08/22/20 09:17 Review of Systems ROS Statement: Those systems with pertinent positive or pertinent negative responses have been documented in the HPI. ROS Other: All systems not noted in ROS Statement are negative. Past Medical History Past Medical History: Hyperlipidemia, Hypertension, Myocardial Infarction ([place]), Thyroid Disorder Additional Past Medical History / Comment(s): SEE DR GALEANA H&P, STATES SILENT [place], RADIATED THYROID Last Myocardial Infarction Date:: 1997 History of Any Multi-Drug Resistant Organisms: None Reported Past Surgical History: AICD, Heart Catheterization With Stent Additional Past Surgical History / Comment(s): STATES 6-7 STENTS, [employer] AICD Past Anesthesia/Blood Transfusion Reactions: No Reported Reaction Date of Last Stent Placement:: 2014 Type of Cardiac Device: AICD Device Placement Date:: 01/29/17 Past Psychological History: No Psychological Hx Reported Smoking Status: Never smoker Past Alcohol Use History: None Reported Past Drug Use History: None Reported - Past Family History Sister(s) Family Medical History: Cancer Additional Family Medical History / Comment(s): Pancreatic General Exam Limitations: no limitations General appearance: alert, in no apparent distress Head exam: Present: atraumatic, normocephalic, normal inspection Eye exam: Present: normal appearance, PERRL, EOMI. Absent: scleral icterus, conjunctival injection, periorbital swelling ENT exam: Present: normal exam, mucous membranes moist Neck exam: Present: normal inspection, full ROM. Absent: tenderness, meningismus, lymphadenopathy Respiratory exam: Present: normal lung sounds bilaterally. Absent: respiratory distress, wheezes, rales, rhonchi, stridor Cardiovascular Exam: Present: regular rate, normal rhythm, normal heart sounds. Absent: systolic murmur, diastolic murmur, rubs, gallop, clicks GI/Abdominal exam: Present: soft, normal bowel sounds. Absent: distended, tenderness, guarding, rebound, rigid Extremities exam: Present: normal capillary refill (cap refill < 2 seconds, radial pulse 2+ and equal bilat), other (sensation intact RUE). Absent: full ROM (patient unable to abduct shoulder. able to flex shoulder about 15 degrees), tenderness, pedal edema, joint swelling, calf tenderness Course Vital Signs 08/22/20 08/22/20 08:03 09:57 Temperature 98.7 F Pulse Rate 68 81 Respiratory 18 16 Rate Blood Pressure 192/88 182/86 O2 Sat by Pulse 97 100 Oximetry EKG Findings - EKG Comments: EKG Findings:: Normal sinus rhythm, ventricular rate 65, LA interval 182, QTC 426 Medical Decision Making - Medical Decision Making She presents initially hypertensive. She took her blood pressure medication about an hour prior to arrival. Patient also has arm pain. Arm pain is muscular skeletal in nature, she cannot abduct her arm at all. Neurovascular status intact right upper extremity. Samuel reevaluation unremarkable. Chest x-ray shows no acute pulmonary process. X-ray of the right humerus shows degenerative changes, could have a possible calcific tendinitis. She was given pain medication and her symptoms and blood pressure did improve. I suspect is secondary to pain. Recommend she follow up with orthopedics. She will follow- up with her doctor for high blood pressure. This did improve to 182/86. She will return for any worsening symptoms. - Lab Data Result diagrams: 08/22/20 08:36 08/22/20 08:36 Lab Results 08/22/20 08/22/20 08/22/20 Range/Units 08:36 08:36 08:36 WBC 10.0 (3.8-10.6) k/uL RBC 5.32 (3.80-5.40) m/uL Hgb 16.1 H (11.4-16.0) gm/dL Hct 46.7 H (34.0-46.0) % MCV 87.8 (80.0-100.0) fL MCH 30.3 (25.0-35.0) pg MCHC 34.5 (31.0-37.0) g/dL RDW 12.7 (11.5-15.5) % Plt Count 236 (150-450) k/uL MPV 7.6 Neutrophils % 79 % Lymphocytes % 13 % Monocytes % 6 % Eosinophils % 1 % Basophils % 1 % Neutrophils # 7.9 H (1.3-7.7) k/uL Lymphocytes # 1.3 (1.0-4.8) k/uL Monocytes # 0.6 (0-1.0) k/uL Eosinophils # 0.1 (0-0.7) k/uL Basophils # 0.1 (0-0.2) k/uL PT (9.0-12.0) sec INR (<1.2) Sodium 140 (137-145) mmol/L Potassium 4.9 (3.5-5.1) mmol/L Chloride 108 H (98-107) mmol/L Carbon Dioxide 18 L (22-30) mmol/L Anion Gap 14 mmol/L BUN 18 H (7-17) mg/dL Creatinine 1.10 H (0.52-1.04) mg/dL Est GFR (CKD-EPI)AfAm 59 (>60 ml/min/1.73 sqM) Est GFR (CKD-EPI)NonAf 51 (>60 ml/min/1.73 sqM) Glucose 141 H (74-99) mg/dL Calcium 10.2 (8.4-10.2) mg/dL Total Bilirubin 0.8 (0.2-1.3) mg/dL AST 32 (14-36) U/L ALT 19 (4-34) U/L Alkaline Phosphatase 94 (38-126) U/L Troponin I (0.000-0.034) ng/mL Total Protein 8.1 (6.3-8.2) g/dL Albumin 5.1 H (3.5-5.0) g/dL Urine Color Colorless Urine Appearance Clear (Clear) Urine pH 6.0 (5.0-8.0) Ur Specific [place] 1.010 (1.001-1.035) Urine Protein Trace (Negative) Urine Glucose (UA) Negative (Negative) Urine Ketones Negative (Negative) Urine Blood Small (Negative) Urine Nitrite 0 (Negative) Urine Bilirubin Negative (Negative) Urine Urobilinogen <2.0 (<2.0) mg/dL Ur Leukocyte Esterase Small (Negative) Urine RBC 2 (0-5) /hpf Urine WBC 4 (0-5) /hpf Ur Squamous Epith Cells <1 (0-4) /hpf 08/22/20 08/22/20 Range/Units 08:36 09:15 WBC (3.8-10.6) k/uL RBC (3.80-5.40) m/uL Hgb (11.4-16.0) gm/dL Hct (34.0-46.0) % MCV (80.0-100.0) fL MCH (25.0-35.0) pg MCHC (31.0-37.0) g/dL RDW (11.5-15.5) % Plt Count (150-450) k/uL MPV Neutrophils % % Lymphocytes % % Monocytes % % Eosinophils % % Basophils % % Neutrophils # (1.3-7.7) k/uL Lymphocytes # (1.0-4.8) k/uL Monocytes # (0-1.0) k/uL Eosinophils # (0-0.7) k/uL Basophils # (0-0.2) k/uL PT 32.5 H (9.0-12.0) sec INR 3.4 H (<1.2) Sodium (137-145) mmol/L Potassium (3.5-5.1) mmol/L Chloride (98-107) mmol/L Carbon Dioxide (22-30) mmol/L Anion Gap mmol/L BUN (7-17) mg/dL Creatinine (0.52-1.04) mg/dL Est GFR (CKD-EPI)AfAm (>60 ml/min/1.73 sqM) Est GFR (CKD-EPI)NonAf (>60 ml/min/1.73 sqM) Glucose (74-99) mg/dL Calcium (8.4-10.2) mg/dL Total Bilirubin (0.2-1.3) mg/dL AST (14-36) U/L ALT (4-34) U/L Alkaline Phosphatase (38-126) U/L Troponin I <0.012 (0.000-0.034) ng/mL Total Protein (6.3-8.2) g/dL Albumin (3.5-5.0) g/dL Urine Color Urine Appearance (Clear) Urine pH (5.0-8.0) Ur Specific [place] (1.001-1.035) Urine Protein (Negative) Urine Glucose (UA) (Negative) Urine Ketones (Negative) Urine Blood (Negative) Urine Nitrite (Negative) Urine Bilirubin (Negative) Urine Urobilinogen (<2.0) mg/dL Ur Leukocyte Esterase (Negative) Urine RBC (0-5) /hpf Urine WBC (0-5) /hpf Ur Squamous Epith Cells (0-4) /hpf Disposition Clinical Impression: Hypertension, Arm pain Disposition: HOME SELF-CARE Condition: Good Instructions (If sedation given, give patient instructions): Hypertension (ED), Arm Pain (ED) Additional Instructions: Please follow-up with primary care for blood pressure. Follow-up with orthopedics for arm pain, you can take tylenol for pain in the meantime Return to the emergency room for any worsening symptoms. Is patient prescribed a controlled substance at d/c from ED?: No Referrals: Lucrecia Gallardo MD [Primary Care Provider] - 1-2 days Garrison Grover MD [STAFF PHYSICIAN] - 1-2 days Time of Disposition: 10:21
--- NOTE | 2020-08-22 09:14 | XR ---
EXAMINATION TYPE: XR chest 2V DATE OF EXAM: 08/22/2020 COMPARISON: 11/22/2017 HISTORY: Unable to raise right arm due to pain, hypertension TECHNIQUE: Frontal and lateral views of the chest are obtained. FINDINGS: The lungs are grossly clear. Cardiac silhouette is unchanged in size with an unchanged single lead AICD with battery pack obscurin g a portion of the left hemithorax. IMPRESSION: No acute cardiopulmonary process.
--- NOTE | 2020-08-22 09:17 | XR ---
EXAMINATION TYPE: XR humerus RT DATE OF EXAM: 08/22/2020 CLINICAL HISTORY: Shoulder popped after getting out of car one day ago TECHNIQUE: Two views of the humerus are obtained. COMPARISON: None. FINDINGS: There is no acute fracture or dislocation seen in the right humerus. There are degenerativ e changes of the right acromioclavicular joint with a calcification noted in the region of the right rotator cuff. IMPRESSION: No acute fracture or dislocation is evident in the right humerus. Degenerative changes of the right AC joint. Calcification in the region of the right rotator cuff. Please correlate for possible calcific tendini tis. If there is clinical concern for shoulder pathology, dedicated shoulder imaging is recommended.
[2020-08-22 09:24] LABS: Albumin 5.1 g/dL (3.5-5.0); Calcium 10.2 mg/dL (8.4-10.2); Total Bilirubin 0.8 mg/dL (0.2-1.3); Total Protein 8.1 g/dL (6.3-8.2)
[2020-08-22 09:30] LABS: Appearance,Urine Clear (Clear); Bilirubin,Urine Negative (Negative); Color,Urine Colorless; Glucose,Urine (UA) Negative (Negative); Ketones,Urine Negative (Negative); Protein,Urine Trace (Negative)
[2020-08-22 09:31] LABS: Blood,Urine Small (Negative); Leukocyte Esterase,Urine Small (Negative); Nitrite,Urine 0 (Negative); Urobilinogen,Urine <2.0 mg/dL (<2.0)
[2020-08-22 09:36] LABS: Potassium 4.9 mmol/L (3.5-5.1)
[2020-08-22 09:43] LABS: INR 3.4 (<1.2); Prothrombin Time 32.5 sec (9.0-12.0)
[2020-08-22 09:44] LABS: Basophils # (A) 0.1 k/uL (0-0.2); Basophils % (A) 1 %; Eosinophils # (A) 0.1 k/uL (0-0.7); Eosinophils % (A) 1 %; HCT 46.7 % (34.0-46.0); HGB 16.1 gm/dL (11.4-16.0); Lymphocytes # (A) 1.3 k/uL (1.0-4.8); Lymphocytes % (A) 13 %; MCH 30.3 pg (25.0-35.0); MCHC 34.5 g/dL (31.0-37.0); MCV 87.8 fL (80.0-100.0); Mean Platelet Volume 7.6; Monocytes # (A) 0.6 k/uL (0-1.0); Monocytes % (A) 6 %; Neutrophils # (A) 7.9 k/uL (1.3-7.7); Neutrophils % (A) 79 %; Platelet Count 236 k/uL (150-450); RBC 5.32 m/uL (3.80-5.40); RDW 12.7 % (11.5-15.5)
[2020-08-22 09:47] LABS: RBC,Urine 2 /hpf (0-5); Squamous Epithelial Cell,Urine <1 /hpf (0-4); WBC,Urine 4 /hpf (0-5)
--- NOTE | 2020-08-22 09:47 | XR ---
EXAMINATION TYPE: XR shoulder complete RT DATE OF EXAM: 08/22/2020 CLINICAL HISTORY: Fall injury with pain. TECHNIQUE: Three views of the right shoulder are obtained. COMPARISON: Right humerus earlier today. FINDINGS: There is no acute fracture/dislocation evident in the right shoulder. Stable mild narrowin g and capsular hypertrophy of acromioclavicular joint. Punctate calcification in region of right rota tor cuff redemonstrated. Distal acromion morphology unremarkable. The visualized ribs are intact and unremarkable. IMPRESSION: There is no acute fracture or dislocation in the right shoulder.
[2020-08-22 09:59] VITALS: BP 182/86; PULSE 81; RESP 16
== END 2020-08-22 10:38 | disposition home or self-care (01) ==
LOC: EC 08:02
DX: M25.511 Pain in right shoulder (principal); I10 Essential (primary) hypertension; H53.8 Other visual disturbances; E78.5 Hyperlipidemia, unspecified; I25.2 Old myocardial infarction; Z79.01 Long term (current) use of anticoagulants; Z79.82 Long term (current) use of aspirin; Z88.0 Allergy status to penicillin; Z95.810 Presence of automatic (implantable) cardiac defibrillator; Z88.2 Allergy status to sulfonamides
CPT/HCPCS: 36415; 93005; 80053; 84484; 85025; 85610; 81001; 73030; 73060; 71046; 99284; 96374; 96375; J2270; J2405

== ENCOUNTER → 2020-08-23 | Day surgery (SDC) | payer MEDICARE ==
[2020-08-19 10:40] VITALS: BMI 34.3
[~2020-08-23] MED LIST changes: +LIDOCAINE 1% (10MG/ML) FOR IV START INTRADERMA PRN; +MIDAZOLAM 2 MG/2 ML VIAL ONE; +SODIUM CHLORIDE 0.9% 500 ML 500 ML IV ONE; +fentaNYL (PF) 50 MCG/ML 2 ML AMP ONE
[2020-08-23 07:08] VITALS: RESP 18; TEMP 98
[2020-08-23 07:32] LABS: Prothrombin Time 29.1 sec (9.0-12.0)
--- NOTE | 2020-08-23 09:51 | P.EPPROC ---
- EP Procedure Note Electrophysiology Procedure Note: Diagnosis Fine ventricular fibrillation with undersensing at least sensitivity 1.5 mV Single-chamber ICD [employer] Procedure Device was interrogated R waves 6.9 mV, pacing impedance 7 and 50 ohms and shocking impedance 91 ohms Pacing threshold stable 0.9 V at 0.4 ms Ventricular fibrillation was induced and detected at the sensitivity of 1 mV (Please note that in 2018 when we tested her at a sensitivity 1.5 mV she had significant under sensing) 7 dropouts noted at the sensitivity of 1 mV Successful defibrillation at 11 J no post shock noise Charge time 1.8 seconds, shocking impedance is 87 ohms Lead polarity: Initial Patient got to the procedure well without any acute complications Impression History of significant under sensing at a sensitivity 1.5 mV Successful defibrillation with adequate sensing at 1 mV today Successful shock 11 J 7 dropouts Device reprogrammed accordingly Sensitivity was reprogrammed at 0.4 mV MADIT RIT programming Long-term plan Defibrillation level testing and testing adequacy of detection of ventricular fibrillation at least every 2 years
[2020-08-23 10:05] VITALS: PULSE 67
[2020-08-23 10:27] VITALS: BP 157/77
== END ==
LOC: CATHEP 06:44
PROVIDERS: ATTEND Internal Medicine Clinical Cardiac Electrophysiology
DX: I49.3 Ventricular premature depolarization (principal); I25.5 Ischemic cardiomyopathy; I25.10 Atherosclerotic heart disease of native coronary artery without angina pectoris; I11.0 Hypertensive heart disease with heart failure; I50.9 Heart failure, unspecified; E78.5 Hyperlipidemia, unspecified; Z20.822 Contact with and (suspected) exposure to COVID-19; Z82.49 Family history of ischemic heart disease and other diseases of the circulatory system; Z95.5 Presence of coronary angioplasty implant and graft; Z72.0 Tobacco use; Z79.82 Long term (current) use of aspirin; Z79.899 Other long term (current) drug therapy; Z88.0 Allergy status to penicillin; Z88.2 Allergy status to sulfonamides; Z88.8 Allergy status to other drugs, medicaments and biological substances
CPT/HCPCS: 93642; 85610; 87635; J2250; J3010; J2704

== ENCOUNTER → 2020-09-26 | Outpatient (CLI) | payer MEDICARE ==
--- NOTE | 2020-09-28 08:09 | MM ---
Reason for exam: screening (asymptomatic). Last mammogram was performed 1 year ago. History: Patient is postmenopausal. Excisional biopsy of the left breast, 1998. Physical Findings: A clinical breast exam by your physician is recommended on an annual basis and results should be correlated with mammographic findings. MG 3D Screening Mammo W/Cad Bilateral CC and MLO view(s) were taken. Prior study comparison: September 25, 2019, bilateral MG 3d screening mammo w/cad. July 23, 2018, bilateral MG 3d diag mammo w/cad JULIA. There are scattered fibroglandular densities. There is chronic nodularity in the left breast. No significant changes when compared with prior studies. ASSESSMENT: Benign, BI-RAD 2 RECOMMENDATION: Routine screening mammogram of both breasts in 1 year.
== END | disposition home or self-care (01) ==
LOC: RADMAMWWP 08:44
PROVIDERS: ATTEND Family Medicine
DX: Z12.31 Encounter for screening mammogram for malignant neoplasm of breast (principal); Z78.0 Asymptomatic menopausal state
CPT/HCPCS: 77063; 77067

== ENCOUNTER → 2021-10-23 | Outpatient (CLI) | payer MEDICARE ==
[2021-10-23 14:29] LABS: HCT 49.8 % (37.2-46.3); HGB 15.7 g/dL (12.0-15.0); MCH 28.6 pg (27.0-32.0); MCHC 31.5 g/dL (32.0-37.0); MCV 90.7 fL (80.0-97.0); Mean Platelet Volume 10.7 fL (9.5-12.2); NRBC Per 100 WBC 0 /100 WBCS (0.0-0.0); Platelet Count 253 X 10*3/uL (140-440); RBC 5.49 X 10*6/uL (4.10-5.20); RDW 13.3 % (11.5-14.5); WBC 9.67 X 10*3/uL (4.50-10.00)
[2021-10-23 14:47] LABS: African American GFR (CKD) 42.6 (60.0-200.0); Anion Gap 13.4 mmol/L (10.00-18.00); Carbon Dioxide 24.5 mmol/L (20.0-27.5); Non-African American GFR(CKD) 36.8 (60.0-200.0)
[2021-10-23 15:39] LABS: INR 2.15 (0.90-1.11); Prothrombin Time 23.4 sec (9.9-11.9)
== END | disposition home or self-care (01) ==
LOC: LABPAT 08:10
PROVIDERS: ATTEND Internal Medicine Clinical Cardiac Electrophysiology
DX: Z01.812 Encounter for preprocedural laboratory examination (principal); I48.0 Paroxysmal atrial fibrillation; I25.5 Ischemic cardiomyopathy
CPT/HCPCS: 80051; 82565; 84520; 85027; 85610

== ENCOUNTER → 2021-10-30 | Day surgery (SDC) | payer MEDICARE ==
[2021-10-27 12:49] VITALS: BMI 34.9
[~2021-10-30] MED LIST changes: +HYDROmorphone 0.5 MG/0.5 ML SYRINGE IVP PRN; -LIDOCAINE 1% (10MG/ML) FOR IV START INTRADERMA PRN; -MIDAZOLAM 2 MG/2 ML VIAL ONE; -PROPOFOL 10 MG/ML 20 ML VIAL IV ONE; -SODIUM CHLORIDE 0.9% 500 ML 500 ML IV ONE; -fentaNYL (PF) 50 MCG/ML 2 ML AMP ONE
== END ==
LOC: CATHEP 06:29
PROVIDERS: ATTEND Internal Medicine Clinical Cardiac Electrophysiology
DX: I48.19 Other persistent atrial fibrillation (principal); Z53.09 Procedure and treatment not carried out because of other contraindication; I48.0 Paroxysmal atrial fibrillation; Z91.09 Other allergy status, other than to drugs and biological substances; I11.0 Hypertensive heart disease with heart failure; I50.22 Chronic systolic (congestive) heart failure; I25.5 Ischemic cardiomyopathy; I25.10 Atherosclerotic heart disease of native coronary artery without angina pectoris; Z95.810 Presence of automatic (implantable) cardiac defibrillator; E87.5 Hyperkalemia; Z79.82 Long term (current) use of aspirin; Z79.899 Other long term (current) drug therapy; E78.5 Hyperlipidemia, unspecified; I73.9 Peripheral vascular disease, unspecified; Z82.49 Family history of ischemic heart disease and other diseases of the circulatory system; Z88.8 Allergy status to other drugs, medicaments and biological substances; Z88.0 Allergy status to penicillin; Z88.2 Allergy status to sulfonamides; Z79.01 Long term (current) use of anticoagulants; Z87.891 Personal history of nicotine dependence; Z80.0 Family history of malignant neoplasm of digestive organs

== ENCOUNTER 2021-11-07 09:24 | Day surgery (SDC) | payer MEDICARE ==
[~2021-11-07 09:24] MED LIST changes: -LACTATED RINGERS 1,000 ML IV SCH; +MIDAZOLAM 2 MG/2 ML VIAL IV PRN; -SODIUM CHLORIDE 0.9% 1,000 ML IV SCH
[2021-11-07] MEDS ORDERED: SODIUM CHLORIDE 0.9% 1,000 ML IV ONE (10:13)
[2021-11-07] MEDS ORDERED: SUCCINYLCHOLINE CHLORIDE 200 MG/10 ML VIAL IV ONE (11:38)
[2021-11-07] MEDS ORDERED: DEXAMETHASONE SOD PHOSPHATE 10 MG/ML 1 ML VIAL ONE (11:38)
[2021-11-07] MEDS ORDERED: PHENYLEPHRINE-0.9% NACL SYG 1,000 MCG/10 ML SYRINGE ONE (11:38)
[2021-11-07] MEDS ORDERED: PROPOFOL 10 MG/ML 20 ML VIAL IV ONE (11:38)
[2021-11-07] MEDS ORDERED: fentaNYL (PF) 50 MCG/ML 2 ML AMP ONE (11:38)
[2021-11-07] MEDS ORDERED: MIDAZOLAM 2 MG/2 ML VIAL ONE (11:38)
[2021-11-07] MEDS ORDERED: ONDANSETRON 4 MG/2 ML VIAL ONE (11:38)
[2021-11-07] MEDS ORDERED: HEPARIN SODIUM,PORCINE 10,000 UNIT/ML 1 ML VIAL ONE (11:38)
[2021-11-07] MEDS ORDERED: LIDOCAINE 2% INJ 20 MG/ML (2 ML VIAL) ONE (11:38)
[2021-11-07] MEDS ORDERED: ROCURONIUM 10 MG/ML (5 ML VIAL) IV ONE (11:38)
--- NOTE | 2021-11-07 11:53 | P.HPCAR ---
History of Present Illness This is Dr. Gale dictating an H/P on this patient The patient was interviewed and examined IMPRESSION / ASSESSMENT: Persistent atrial fibrillation with shortness of breath weakness and fatigue Underlying cardiomyopathy, ischemic Failed sotalol Hypertension PLAN: A. fib ablation with PVI and lipid ablation Continue sotalol HPI Patient continues to complain of shortness of breath on exertion, average daily activities She complains of fatigue ROS: No fever chills or rigors, no cough, phlegm or expectoration, no nausea, vomiting or diarrhea, no hematuria, dysuria, no musculoskeletal complaints, no strokes or seizures, no skin lesions. EXAMINATION: Elevated blood pressure readings this morning, patient is nervous, she skipped a.m. dose of carvedilol Breath sounds are equal bilaterally. No rhonchi no crackles Heart sounds are irregular no murmurs No JVD No lower extremity edema REVIEW OF LABS, ECG & MEDICAL DATA patient is on warfarin Coronary sinus PCR not detected Physical Exam Vitals: Vital Signs Temp Pulse Resp BP Pulse Ox 11/07/21 11:26 213/97 11/07/21 10:17 97.9 F 116 H 16 217/111 98 Intake and Output 11/06/21 11/07/21 11/07/21 22:59 06:59 14:59 Other: Weight 91.4 kg Past Medical History Past Medical History: Hyperlipidemia, Hypertension, Myocardial Infarction ([place]), Thyroid Disorder Additional Past Medical History / Comment(s): SEE DR GALE H&P, STATES SILENT "[place] or heat stroke", RADIATED THYROID for nodules, hx migraines, SOB, gout, Last Myocardial Infarction Date:: 1997 History of Any Multi-Drug Resistant Organisms: None Reported Past Surgical History: AICD, Heart Catheterization With Stent Additional Past Surgical History / Comment(s): STATES at least 7 STENTS, [employer] AICD Past Anesthesia/Blood Transfusion Reactions: No Reported Reaction Date of Last Stent Placement:: 2014 Type of Cardiac Device: AICD Device Placement Date:: 01/29/17 Smoking Status: Former smoker - Past Family History Sister(s) Family Medical History: Cancer Additional Family Medical History / Comment(s): Pancreatic Physical Examination Vital Signs Temp Pulse Resp BP Pulse Ox 11/07/21 11:26 213/97 11/07/21 10:17 97.9 F 116 H 16 217/111 98 Intake and Output 11/06/21 11/07/21 11/07/21 22:59 06:59 14:59 Other: Weight 91.4 kg Results Current Medications Generic Name Dose Route Start Last Admin Trade Name Martine PRN Reason Stop Dose Admin Hydromorphone HCl 0.5 mg 11/07/21 07:00 Hydromorphone 0.5 Mg/0.5 Ml Syringe IVP 11/07/21 23:00 Q5M PRN Phase 1 or 2 - Pain Control Sodium Chloride 1,000 mls @ 20 mls/hr 11/07/21 06:06 Saline 0.9% IV 12/07/21 06:07 .Q24H SOLEDAD Lactated Ringer's 1,000 mls @ 20 mls/hr 11/07/21 06:06 Lactated Ringers IV 12/07/21 06:07 .Q24H SOLEDAD Midazolam HCl 2 mg 11/07/21 06:06 Midazolam 2 Mg/2 Ml Vial IV 11/08/21 06:07 ONCE PRN Pre-Op Anxiety Intake and Output 11/06/21 11/07/21 11/07/21 22:59 06:59 14:59 Other: Weight 91.4 kg Patient Weight 11/08/21 06:59 Weight 91.4 kg
[2021-11-07] MEDS ORDERED: LIDOCAINE 1% INJ 10MG/ML (5 ML VIAL-PF) SQ ONE (12:16)
[2021-11-07] MEDS ORDERED: SODIUM CHLORIDE 0.9% 100 ML with ceFAZolin 2,000 MG IV ONE ×2 (12:21)
[2021-11-07] MEDS ORDERED: HEPARIN SOD,PORK IN 0.45% NACL 25,000 UNIT in 0.45% NACL 1 250ML.BAG IV ONE (12:25)
[2021-11-07 12:44] LABS: INR 2.8 (<1.2); Prothrombin Time 27.7 sec (9.0-12.0)
[2021-11-07] MEDS ORDERED: IOPAMIDOL-370 125ML BTL INJ ONE (14:17)
--- NOTE | 2021-11-07 14:44 | P.PN ---
Progress Note - Text Successful pulmonary vein isolation Successful focal ablation at the site of mechanical termination of atrial fibrillation outside the left superior pulmonary vein Linear ablation of the left atrial roof
--- NOTE | 2021-11-07 14:44 | P.EPPROC ---
- EP Procedure Note Electrophysiology Procedure Note: PROCEDURE A. fib ablation DIAGNOSIS Persistent Atrial fibrillation, symptomatic, refractory to therapy RESULT No left atrial appendage mass seen on intracardiac echo, reduced LV systolic function Successful A. fib ablation/pulmonary vein isolation of all veins using cryo- ablation Termination of atrial fibrillation outside the right superior pulmonary vein with catheter manipulation Successful ablation at the site Linear ablation left atrial roof Complete entrance block in all 4 veins confirmed No evidence for phrenic nerve injury Esophageal deflection YES PROCEDURE DETAILS Patient was brought to the EP lab in a fasting state after obtaining written informed consent. Procedure performed under general anesthesia The [employer] single chamber ICD was interrogated. Lead impedance was measured at around 650 prior to the start of the study. Device tachycardia therapies were turned off Esophagus was intubated. Esophageal temperature monitoring with circa catheter. Esophageal deflection with an endoscope to avoid hypothermia of the esophagus. After initial muscle relaxant use, muscle relaxants were not given thereafter in order to assess phrenic nerve during procedure. Patient prepped and draped as per protocol Cryo ablation-set up with standard preparation of the cryoablation tools done. Femoral Venous access obtained on the right and left groins and sheaths placed Diagnostic catheters for the high right atrium, phrenic nerve stimulation and pacing, His bundle, coronary sinus placed Intracardiac echo catheter placed. Long sheath placed in the right atrium Left and right transseptal catheterization performed under intracardiac echo guidance. Intravenous heparin with aCT above 300 Later, catheter positioning and balloon positioning in the left atrium and pulmonary veins, under intracardiac echo guidance Related sheath manipulation, termination of atrial fibrillation occurred outside the left superior pulmonary vein. The sheath was visualized on intracardiac echo The sheath was left exactly in place and cryoablation was performed at the site successfully with good temperature is Diagnostic EP study with coronary sinus pacing and recording Baseline measurements: Sinus cycle length 1101 ms, ID interval 161 ms, QRS 97 and QT interval 496 ms AH 80, HV 50 ms Transseptal catheterization performed RA pressure 22/15/19 LA pressure 30/11/21 Transseptal catheterization performed with standard sheath. The cryoablation sheath was then placed with an over the wire exchange without any acute complications. The cryoablation balloon was placed in the office of each pulmonary vein and all 4 pulmonary veins were isolated. IV dye was injected to confirm occlusion. Goal: achieve complete occlusion of the pulmonary vein, achieve -30 degrees C at 30 seconds and achieve -40 degrees C at 60 seconds and a time to effect of less than 60 seconds. If not, the balloon was repositioned to obtain this result After completion of Cryoblation with durations from 180-240 seconds, entrance block was confirmed with the Attain circular catheter in a roving fashion around the antrum of the pulmonary veins Phrenic nerve pacing was performed from the SVC, right innominate vein area and diaphragm voltage was monitored. Diaphragmatic contractions were also monitored manually for strength of contraction. At the end of the procedure the Achieve catheter was once again used to check for entrance block Phrenic nerve stimulation was performed to confirm diaphragmatic stimulation the end of the procedure Pulmonary vein isolation took longer been usual on account of the following factors #1 the pulmonary veins were large and multiple ablations her to be performed for short durations in the left inferior pulmonary vein to minimize crier injury to the deflected esophagus The right inferior pulmonary vein was large and very posterior. Multiple attempts were made at occluded saphenous vein. This was performed successfully and successful ablation was performed with isolation The right superior pulmonary vein was large with multiple tributaries and s egmental isolation had to be performed. There was no evidence for phrenic nerve stimulation within the right superior pulmonary vein Cine fluoroscopy was performed at the very end of the procedure to confirm movement of both diaphragms with inspiration and expiration Linear ablation was performed in the left atrial roof successfully with contiguous cryoablation lesions At the end of the procedure the patient was extubated Venous sheaths were removed and hemostasis assured with a closure device ICD was interrogated. Lead impedances are stable Tachycardia therapies were turned on PROCEDURES PERFORMED Diagnostic EP study CS pacing and recording Left and right transseptal catheterization Catheter the mapping of the tachycardia Intracardiac echocardiography Pulmonary vein isolation with transseptal and comprehensive EPS, [id number] Extended procedure duration Left atrial roof line, +[id number] Focal ablation for discrete with a focus, left atrium, +[id number] Single-chamber ICD interrogation with reprogramming
[2021-11-07] MEDS ORDERED: ACETAMINOPHEN TAB 325 MG TAB PO PRN (14:47)
[2021-11-07] MEDS ORDERED: ACETAMINOPHEN IV (For NPO) 1,000 MG in EMPTY BAG 1 BAG IVPB ONE (15:30)
[2021-11-07] MEDS: LACTATED RINGERS 1,000 ML IV SCH ×2 (16:55→22:51)
[2021-11-07] MEDS: SODIUM CHLORIDE 0.9% 1,000 ML IV SCH (16:55)
[2021-11-07] MEDS ORDERED: FUROSEMIDE 10 MG/ML 2 ML VIAL IV ONE (17:30)
[2021-11-07] MEDS: carvediloL 6.25 MG TAB PO SCH (17:47)
[2021-11-07] MEDS ORDERED: WARFARIN 1.25 MG TAB PO SCH (18:00)
[2021-11-07] MEDS ORDERED: EZETIMIBE 10 MG TAB PO SCH (21:00)
[2021-11-07] MEDS ORDERED: PRAVASTATIN SODIUM 20 MG TAB PO SCH (21:00)
[2021-11-07] MEDS: ASPIRIN 81 MG PO SCH (21:07)
[2021-11-07] MEDS: SOTALOL 80 MG TAB PO SCH (21:07)
[2021-11-08 03:09] VITALS: TEMP 97.6
[2021-11-08 06:22] LABS: INR 3.1 (<1.2); Prothrombin Time 31.2 sec (9.0-12.0)
[2021-11-08] MEDS: ASPIRIN 81 MG PO SCH (07:37)
[2021-11-08] MEDS: SOTALOL 80 MG TAB PO SCH (07:38)
[2021-11-08] MEDS: carvediloL 6.25 MG TAB PO SCH (07:38)
[2021-11-08 07:43] VITALS: PULSE 64
[2021-11-08 08:12] VITALS: BP 127/81; RESP 16
--- NOTE | 2021-11-08 08:54 | P.DS ---
Providers Attending physician: Adan Gale Primary care physician: [facility] Course: The patient is a 71-year-old female with past medical history of persistent atrial fibrillation, which was refractory to sotalol therapy. The patient underwent successful pulmonary vein isolation and linear ablation of the left atrial roof with Dr. Gale on 11/07/2021. The patient was interviewed and examined lying comfortably in bed. She has been up ambulating several times this morning. She denies any chest pain or orthopnea. Mildly sore throat no discomfort in her groins. GENERAL: Well-appearing, well-nourished and in no acute distress. NECK: Supple without JVD or thyromegaly. LUNGS: Breath sounds clear to auscultation bilaterally. Respiration equal and unlabored. No wheezes, rales or rhonchi. HEART: Regular rate and rhythm without murmurs, rubs or gallops. S1 and S2 h eard. EXTREMITIES: Normal range of motion, no edema. No clubbing or cyanosis. Peripheral pulses intact and strong. Bilateral groin sites without drainage. No hematoma. VITALS: Blood pressure 127/81, pulse 64, temp 97.6F, SpO2 95% on room air TELEMETRY: Sinus rhythm overnight. EKG shows sinus rhythm with mildly prolonged MD interval and QT interval less than 440 ms on current dose of sotalol LABS: INR 3.1 IMPRESSION: Persistent atrial fibrillation, refractory to antiarrhythmic therapy Status post pulmonary vein isolation in atrial roof ablation PLAN: Start mag 64 daily at discharge Patient to follow-up with Dr. Gale/nurse practitioner in 10 days I am dictating on behalf of Dr Adan Gale's history/physical and assessment/plan. Plan - Discharge Summary Discharge Rx Participant: No New Discharge Prescriptions: Continue Aspirin [Adult Low Dose Aspirin EC] 81 mg PO BID Pravastatin Sodium [Pravachol] 20 mg PO HS Ezetimibe [Zetia] 10 mg PO HS carvediloL [Coreg] 6.25 mg PO BID Warfarin Sodium [Jantoven] 2.5 mg PO MOWEFRSA Warfarin Sodium [Jantoven] 1.25 mg PO SUTUTH Cholecalciferol [Vitamin D3 (25 Mcg = 1000 Iu)] 50 mcg PO DAILY Colchicine 0.6 mg PO DIRECTED PRN PRN Reason: gout Losartan [Cozaar] 25 mg PO DAILY Sotalol [Betapace] 80 mg PO BID Cyanocobalamin (Vitamin B-12) [Vitamin B-12] 1,000 mcg PO DIRECTED Discharge Medication List Aspirin [Adult Low Dose Aspirin EC] 81 mg PO BID 01/22/17 [History] Ezetimibe [Zetia] 10 mg PO HS 01/22/17 [History] Pravastatin Sodium [Pravachol] 20 mg PO HS 01/22/17 [History] carvediloL [Coreg] 6.25 mg PO BID 01/22/17 [History] Warfarin Sodium [Jantoven] 1.25 mg PO SUTUTH 11/21/17 [History] Warfarin Sodium [Jantoven] 2.5 mg PO MOWEFRSA 11/21/17 [History] Losartan [Cozaar] 25 mg PO DAILY 08/19/20 [History] Cholecalciferol [Vitamin D3 (25 Mcg = 1000 Iu)] 50 mcg PO DAILY 10/27/21 [History] Colchicine 0.6 mg PO DIRECTED PRN 10/27/21 [History] Cyanocobalamin (Vitamin B-12) [Vitamin B-12] 1,000 mcg PO DIRECTED 10/27/21 [History] Sotalol [Betapace] 80 mg PO BID 10/27/21 [History] Follow up Appointment(s)/Referral(s): Adan Gale MD [STAFF PHYSICIAN] - 1 Week Activity/Diet/Wound Care/Special Instructions: Post EP study - Ablation instructions 1. Keep access sites dry for 2 days. 2. No heavy lifting or straining for 2 days. 3. Avoid bending the hips repeatedly for 2 days. 4. You may go up and down stairs slowly Call if the following is noted 1. Bleeding, increasing swelling or pain at the access sites. 2. Increasing chest discomfort, especially upon taking a deep breath. 3. Increasing shortness of breath, at rest or with exertion. 4. Undue cough / phlegm 5. Difficulty or pain while swallowing. 6. Pain or change in color in the extremities. 7. Fever, chills, rigors. 8. Increasing headache or neurologic symptoms. 9. Dizziness, fainting, palpitations Discharge Disposition: HOME SELF-CARE
[2021-11-08] MEDS ORDERED: LOSARTAN 25 MG TAB PO SCH (09:00)
[2021-11-08] MEDS: SODIUM CHLORIDE 0.9% 1,000 ML IV SCH (10:33)
[2021-11-08] MEDS ORDERED: WARFARIN 2.5 MG TAB PO SCH (18:00)
== END 2021-11-08 10:40 | disposition home or self-care (01) ==
LOC: CATHEP 09:24 → 6NMEDSUR 14:30 → CATHEP 11-08 10:40
PROVIDERS: ATTEND Internal Medicine Clinical Cardiac Electrophysiology
DX: I48.19 Other persistent atrial fibrillation (principal); I25.10 Atherosclerotic heart disease of native coronary artery without angina pectoris; I25.5 Ischemic cardiomyopathy; Z20.822 Contact with and (suspected) exposure to COVID-19
CPT/HCPCS: 93656; 93657; 85610 ×2; 87635; C1894 ×2; C1769 ×4; C1760; C1730 ×2; C1759; C1893; C1733; C1766; J2250; J0330; J1644 ×2; J1100; J1940; J2405; J0690; J2001 ×2; J3010; J0131; J2370; J2704; Q9967

== ENCOUNTER → 2023-01-14 | Outpatient (CLI) | payer MEDICARE ==
[2023-01-14 15:33] LABS: BUN/Creat Ratio 12.56 Ratio (12.00-20.00); Blood Urea Nitrogen 20.1 mg/dL (9.0-27.0); Carbon Dioxide 26.8 mmol/L (21.6-31.8); Chloride 106 mmol/L (96-109); Glucose 101 mg/dL (70-110); Magnesium 2.2 mg/dL (1.5-2.4); Potassium 5.1 mmol/L (3.5-5.5); Sodium 142 mmol/L (135-145)
== END | disposition home or self-care (01) ==
LOC: LABWHC1 09:51
PROVIDERS: ATTEND Nurse Practitioner Adult Health
DX: I10 Essential (primary) hypertension (principal)
CPT/HCPCS: 36415; 80048; 83735

== ENCOUNTER 2023-02-25 14:05 | Day surgery (SDC) | payer MEDICARE ==
[~2023-02-25 14:05] MED LIST changes: -HYDROmorphone 0.5 MG/0.5 ML SYRINGE IVP PRN; -MIDAZOLAM 2 MG/2 ML VIAL IV PRN; +SODIUM CHLORIDE 0.9% 1,000 ML IV SCH
[2023-02-25 14:26] VITALS: PULSE 61; RESP 18; TEMP 97.9
[2023-02-25 14:55] LABS: INR 1.6 (<1.2); Prothrombin Time 16.7 sec (10.0-12.5)
--- NOTE | 2023-02-25 14:55 | P.EPPROC ---
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 50 mL every dye injected Patent left subclavian and access the vein Plan is to upgrade her to a dual-chamber ICD and then be able to maximize carvedilol The patient is severely limited because she is unable to use hydralazine and has severe hypertension In addition, maximizing carvedilol will assist in management of cardio myopathy and reduce her episodes of ventricular tachyarrhythmias
== END 2023-02-25 15:02 | disposition home or self-care (01) ==
LOC: CATHEP 14:05
PROVIDERS: ATTEND Internal Medicine Clinical Cardiac Electrophysiology
DX: I25.10 Atherosclerotic heart disease of native coronary artery without angina pectoris (principal); I34.0 Nonrheumatic mitral (valve) insufficiency; I48.19 Other persistent atrial fibrillation; I11.0 Hypertensive heart disease with heart failure; I50.9 Heart failure, unspecified; Z79.82 Long term (current) use of aspirin; Z79.84 Long term (current) use of oral hypoglycemic drugs; Z79.899 Other long term (current) drug therapy
CPT/HCPCS: 36005; 75820; 85610

== ENCOUNTER 2023-04-15 11:46 | Day surgery (SDC) | payer MEDICARE ==
[~2023-04-15 11:46] MED LIST changes: +CLINDAMYCIN 600 MG in SODIUM CHLORIDE 0.9% 250 ML IRRIGATION PRN; -SODIUM CHLORIDE 0.9% 1,000 ML IV SCH
[2023-04-15] MEDS: SODIUM CHLORIDE 0.9% 1,000 ML IV ONE (12:49)
[2023-04-15 13:18] LABS: INR 1.7 (<1.2); Prothrombin Time 17.4 sec (10.0-12.5)
[2023-04-15] MEDS ORDERED: MIDAZOLAM 2 MG/2 ML VIAL ONE (14:06)
[2023-04-15] MEDS ORDERED: fentaNYL (PF) 50 MCG/ML 2 ML AMP ONE (14:06)
[2023-04-15] MEDS ORDERED: PROPOFOL 10 MG/ML 20 ML VIAL IV ONE (14:06)
[2023-04-15] MEDS ORDERED: diphenhydrAMINE 50 MG/ML 1 ML VIAL ONE (14:06)
[2023-04-15] MEDS ORDERED: LIDOCAINE 1% INJ 10MG/ML (20 ML MDV) ONE (14:36)
[2023-04-15] MEDS: CLINDAMYCIN 900 MG in DEXTROSE 5% IN WATER 50 ML IVPB PRN (14:38)
[2023-04-15] MEDS: LIDOCAINE 1% INJ 10MG/ML (20 ML MDV) SQ ONE (14:54)
[2023-04-15] MEDS: VANCOMYCIN 1,250 MG in SODIUM CHLORIDE 0.9% 250 ML IVPB ONE (15:36)
[2023-04-15] MEDS ORDERED: ACETAMINOPHEN TAB 325 MG TAB PO PRN (17:28)
[2023-04-15] MEDS: LACTATED RINGERS 1,000 ML IV SCH (17:38)
[2023-04-15] MEDS: SODIUM CHLORIDE 0.9% 1,000 ML IV SCH (17:38)
--- NOTE | 2023-04-15 17:45 | P.EPPROC ---
- EP Procedure Note Electrophysiology Procedure Note: Preoperative diagnosis Sick sinus syndrome, resulting in inability to increase the dose of carvedilol for blood pressure control Patient severely allergic to hydralazine, intolerant of amlodipine, intolerant of Entresto Ischemic cardiomyopathy, chronically occluded LAD, 50% in-stent restenosis in the RCA stent Old anteroseptal scar History of ventricular fibrillation currently on low-dose amiodarone Awaiting upgrade to a dual-chamber ICD Final diagnosis As above and Diagnostic EP study with atrial pacing revealed AV node Wenckebach block between 100-110 bpm from the high right atrium Diagnosis EP study revealed easily inducible VT when pacing from the RV septum VT cycle length of about 400 ms VT morphology consistent with deep septal origin QR pattern in lead V1, rapid activation in V6, upright in inferior leads, delayed negative in lead I During mapping for left bundle pacing, very fractionated QRSs with poor current of injury, high thresholds at multiple sites Left bundle pacing abandoned on account of this New atrial lead, implanted in the right atrial appendage for atrial pacing R waves chronically low at 2.7 mV Defibrillation level testing revealed only 2 dropouts, successful detection of ventricular fibrillation and successful defibrillation with 10 J shock, anodal configuration, on oral amiodarone Details Patient was brought to the EP lab in a fasting state. Written informed consent was obtained prior to the procedure. The left pectoral area was prepped and draped as a protocol. Local anesthesia given. An incision made directly over the previous surgical site and carried down to the level of the generator. The old [employer] single-chamber ICD generator explanted. The lead interrogated Venous access obtained in the axillary vein extrathoracic First and atrial lead was placed in the right atrial appendage temporarily to perform atrial pacing AV node Wenckebach block at 100-110 bpm with the patient in the fully awake state and conversational Following that left bundle pacing was attempted but this was finally abandoned on account of the following 1. R waves very fractionated, current of injury signal very poor, thresholds high 2. With pacing from the septum, sustained VT induced with the above-mentioned morphology consistent with a deep septal scar but with rapid activation engaging the conduction system. Cycle length 400 ms 3. Antitachycardia pacing resulted in termination of VT The atrial lead was then implanted successfully, [place], tendril STS model #2088 TC P waves 2 mV, pacing threshold 1 V at point 5 ms and pacing impedance 490 ohms, 10 V test negative New generator implanted, [place] DR Defibrillation level testing performed since R waves are 2.7 mV Ventricular fibrillation successfully induced and successfully detected with only 2 dropouts Successfully defibrillated with a 10 J shock Device programmed to DDD mode 50-110 bpm MVP turned on Monitor zone at 150 beats a minute VT zone 176 beats a minute VF zone 214 beats a minute Appropriate antitachycardia pacing cardioversion defibrillation programmed Patient tolerated the procedure well without any acute complication Long procedure on account of mapping of the septum to look for healthy signals for left bundle pacing
--- NOTE | 2023-04-15 17:47 | P.PRLE ---
RE: FavianNicky A Dear ZaidNicky underwent upgrade to a dual-chamber ICD successfully She has underlying sick sinus syndrome and is unable to tolerate hydralazine, amlodipine or Entresto Her blood pressure remains quite high Now with a dual-chamber system I am increasing the dose of carvedilol to 25 mg twice daily I will stop amlodipine completely She will continue with all other cardiac medications Thank you for entrusting me with the care of the patient Warm regards Sincerely Adan Gale
[2023-04-15] MEDS ORDERED: HYDROcodone/APAP 5-325MG 1 EACH TAB PO PRN (17:58)
[2023-04-15] MEDS: carvediloL 12.5 MG TAB PO SCH (18:00)
[2023-04-15] MEDS: ACETAMINOPHEN IV (For NPO) 1,000 MG in EMPTY BAG 1 BAG IVPB ONE (18:14)
[2023-04-15] MEDS: COLCHICINE 0.6 MG EACH PO SCH (18:31)
[2023-04-15] MEDS: LOSARTAN 50 MG TAB PO SCH (20:16)
[2023-04-15] MEDS: CLINDAMYCIN 900 MG in DEXTROSE 5% IN WATER 50 ML IVPB SCH (20:57)
[2023-04-15] MEDS: PRAVASTATIN SODIUM 20 MG TAB PO SCH (20:57)
[2023-04-15] MEDS: MAGNESIUM OXIDE 400 MG TAB PO SCH (20:57)
[2023-04-15] MEDS: EZETIMIBE 10 MG TAB PO SCH (20:57)
[2023-04-15] MEDS: ASPIRIN 81 MG PO SCH (20:57)
--- NOTE | 2023-04-16 08:15 | XR ---
EXAMINATION TYPE: XR chest 2V DATE OF EXAM: 04/16/2023 HISTORY: Shortness of breath. COMPARISON: 11/28/2022 TECHNIQUE: Single view of the chest is submitted. FINDINGS: Demonstrated are scattered senescent parenchymal change. Right lower lobe infiltrate and small effusion noted. Correlate for pneumonia. The heart is stable. Hilar and mediastinal structures are within normal limits. Degenerative changes are seen of the dorsal spine. IMPRESSION: 1. Right lower lobe infiltrate and small effusion noted. Correlate for pneumonia.
[2023-04-16] MEDS: LOSARTAN 50 MG TAB PO SCH (08:50)
--- NOTE | 2023-04-16 12:15 | CA ---
Transthoracic Echo Report Name: Nicky Ballesteros Age: 72 Gender: F : 1950 Exam Date: 04/16/2023 09:35 Exam Location: [place] [facility] Ht (in): 63 Wt (lb): 203 Ordering Physician: Adan Gale MD ([id number]) Attending/Referring Phys: Settlement Worker Lucy George RDCS Procedure CPT: Indications: CP Cardiac Hx: Technical Quality: Technically difficult study Contrast 1: Definity Total Dose (mL): 2 Contrast 2: Total Dose (mL): MEASUREMENTS (Male / Female) Normal Values DOPPLER AV Peak Velocity 187.6 cm/s AV Peak Gradient 14.1 mmHg AV Mean Velocity 124.8 cm/s AV Mean Gradient 7.3 mmHg AV Velocity Time Integral 39.4 cm LVOT Peak Velocity 83.3 cm/s LVOT Peak Gradient 2.8 mmHg LVOT Velocity Time Integral 19.4 cm MV Area PHT 3.3 cm??? Mitral E Point Velocity 96.2 cm/s Mitral A Point Velocity 59.6 cm/s Mitral E to A Ratio 1.6 MV Deceleration Time 229.7 ms MV E' Velocity 5.5 cm/s Mitral E to MV E' Ratio 17.5 TR Peak Velocity 264.4 cm/s TR Peak Gradient 28.0 mmHg Right Ventricular Systolic Press 33.0 mmHg FINDINGS Left Ventricle [place] hypokinetic. Left ventricular ejection fraction is estimated at 45-50 %. Right Ventricle Right ventricle not well visualized. Right Atrium Right atrium not well visualized catheter/pacemaker wire in the right atrial cavity. Left Atrium Normal left atrial size. Mitral Valve No mitral stenosis. Mild mitral regurgitation. Aortic Valve No aortic valve stenosis or regurgitation. Tricuspid Valve Tricuspid valve not well visualized. Mild tricuspid regurgitation. Pulmonic Valve Pulmonic valve not well visualized. Pericardium No pericardial effusion. Aorta Normal size aortic root and proximal ascending aorta. CONCLUSIONS Technically difficult study. Definity ECHO contrast used for improved visualization of the endocardial borders (inadequate visualization of two or more contiguous segments). Left ventricle systolic function mildly impaired with apical hypokinesis Limited Doppler study with mild mitral and tricuspid regurgitation Previewed by: Dr. Ramana Mcdonald MD (Electronically Signed) Final Date: 16 April 2023 12:14
[2023-04-16 14:33] VITALS: RESP 19; TEMP 98.1
[2023-04-16 16:55] VITALS: BP 128/80; PULSE 62
[2023-04-17] MEDS ORDERED: AMIODARONE 100 MG TAB PO SCH (09:00)
== END 2023-04-16 17:58 | disposition home or self-care (01) ==
LOC: CATHEP 11:46 → 6NMEDSUR 16:40 → CATHEP 04-16 17:58
PROVIDERS: ATTEND Internal Medicine Clinical Cardiac Electrophysiology
DX: I08.1 Rheumatic disorders of both mitral and tricuspid valves (principal); I49.5 Sick sinus syndrome; I42.9 Cardiomyopathy, unspecified; J18.9 Pneumonia, unspecified organism; R91.8 Other nonspecific abnormal finding of lung field; I25.10 Atherosclerotic heart disease of native coronary artery without angina pectoris; I48.19 Other persistent atrial fibrillation; I11.0 Hypertensive heart disease with heart failure; E78.5 Hyperlipidemia, unspecified; I73.9 Peripheral vascular disease, unspecified; F17.210 Nicotine dependence, cigarettes, uncomplicated; Z82.49 Family history of ischemic heart disease and other diseases of the circulatory system; Z79.51 Long term (current) use of inhaled steroids; Z79.82 Long term (current) use of aspirin; Z79.899 Other long term (current) drug therapy
CPT/HCPCS: 93641; 33249; 33241; 85610; 71046; C8929; C1769 ×3; C1721; C1730; C1887; C1892; C1898 ×2; J3370; J2001; Q9957; J0131; J0736; 93306

== ENCOUNTER 2023-04-17 16:24 | Inpatient (IN) | payer MEDICARE ==
--- NOTE | 2023-04-17 16:59 | ED ---
SOB HPI - General Chief Complaint: Shortness of Breath Stated Complaint: weakness, fever, sob Time Seen by Provider: 04/17/23 16:32 Source: patient, family, RN notes reviewed, old records reviewed Mode of arrival: wheelchair Limitations: no limitations - History of Present Illness Initial Comments: This is a 72-year-old female to the ER for evaluation of weakness. Patient was just discharged from the hospital yesterday and had some shortness of breath and persistent weakness which is found here in the ER. Patient is without chest pain but is not feeling well significantly short of breath is unable to catch her breath and has chest pain in her chest and shoulders. MD Complaint: shortness of breath, cough, chest pain -: days(s) Severity: moderate Severity scale (1-10): 4 Quality: dull, aching, throbbing Consistency: intermittent Improves With: nothing Worsens With: nothing Known History Of: COPD, congestive heart failure Context: recent URI, recent illness Associated Symptoms: chest pain, pain with inspiration Treatments Prior to Arrival: none - Related Data Home Medications Medication Instructions Recorded Confirmed Aspirin [Adult Low Dose Aspirin EC] 81 mg PO BID 01/22/17 04/17/23 Ezetimibe [Zetia] 10 mg PO HS 01/22/17 04/17/23 Pravastatin Sodium [Pravachol] 20 mg PO HS 01/22/17 04/17/23 Biotin 10 mg PO HS 11/28/22 04/17/23 Cholecalciferol [Vitamin D3 (125 125 mcg PO HS 11/28/22 04/17/23 Mcg = 5000 Iu)] Magnesium Chloride [Slow-Mag] 64 mg PO HS 11/28/22 04/17/23 Amiodarone [Cordarone] 100 mg PO Q48H 02/20/23 04/17/23 Warfarin [Coumadin] 1 mg PO MOWEFR@209902/20/23 04/17/23 Losartan Potassium 50 mg PO DAILY@1600 04/17/23 04/17/23 Losartan Potassium 100 mg PO DAILY 04/17/23 04/17/23 Warfarin [Coumadin] 1.5 mg PO SUTUTHSA@2100 04/17/23 04/17/23 Previous Rx's Medication Instructions Recorded carvediloL 25 mg PO BID #180 tablet 04/15/23 Levofloxacin [Levaquin] 500 mg PO DAILY 3 Days #3 tab 02/09/24 Allergies Allergy/AdvReac Type Severity Reaction Status Date / Time aspartame Allergy Severe hives, Verified 04/17/23 19:51 [From Nutrasweet Aspartame] tongue swelling hydralazine Allergy Severe Anaphylaxis Verified 04/17/23 19:51 Sulfa (Sulfonamide Allergy Severe "bleeding Verified 04/17/23 19:51 Antibiotics) in eyes" nickel Allergy Rash/Hives Verified 04/17/23 19:51 Penicillins Allergy Rash/Hives/ Verified 04/17/23 19:51 itching Tetracyclines Allergy rapid Verified 04/17/23 19:51 breathing ramipril [From Altace] AdvReac Cough Verified 04/17/23 19:51 valsartan AdvReac dizzy, Verified 04/17/23 19:51 confused Review of Systems ROS Statement: Those systems with pertinent positive or pertinent negative responses have been documented in the HPI. ROS Other: All systems not noted in ROS Statement are negative. Past Medical History Past Medical History: Hyperlipidemia, Hypertension, Myocardial Infarction (SD), Thyroid Disorder Additional Past Medical History / Comment(s): SEE DR GALEANA H&P, STATES SILENT "SD or heat stroke", RADIATED THYROID for nodules, hx migraines, SOB, gout, Last Myocardial Infarction Date:: 1997 History of Any Multi-Drug Resistant Organisms: None Reported Past Surgical History: AICD, Heart Catheterization With Stent, Pacemaker Additional Past Surgical History / Comment(s): STATES at least 7 STENTS, [employer] AICD, left upper extremity,venogram, cinefluoroscopy of AICD lead, thyroidectomy Past Anesthesia/Blood Transfusion Reactions: No Reported Reaction Date of Last Stent Placement:: 2014 Type of Cardiac Device: AICD Device Placement Date:: 01/29/17 Past Psychological History: No Psychological Hx Reported Smoking Status: Former smoker - Past Family History Sister(s) Family Medical History: Cancer Additional Family Medical History / Comment(s): Pancreatic General Exam Limitations: no limitations General appearance: alert, anxious, in distress Head exam: Present: atraumatic, normocephalic, normal inspection Eye exam: Present: normal appearance, PERRL, EOMI. Absent: scleral icterus, conjunctival injection, periorbital swelling ENT exam: Present: normal exam, mucous membranes moist Neck exam: Present: normal inspection. Absent: tenderness, meningismus, lymphadenopathy Respiratory exam: Present: respiratory distress, accessory muscle use, decreased breath sounds, prolonged expiratory. Absent: rales, rhonchi, stridor Cardiovascular Exam: Present: regular rate, normal rhythm, normal heart sounds. Absent: systolic murmur, diastolic murmur, rubs, gallop, clicks GI/Abdominal exam: Present: soft, normal bowel sounds. Absent: distended, tenderness, guarding, rebound, rigid Extremities exam: Present: normal inspection, full ROM, normal capillary refill. Absent: tenderness, pedal edema, joint swelling, calf tenderness Back exam: Present: normal inspection Neurological exam: Present: alert, oriented X3, CN II-XII intact Psychiatric exam: Present: normal affect, normal mood Skin exam: Present: warm, dry, intact, normal color. Absent: rash Course Vital Signs 04/17/23 04/17/23 04/17/23 16:26 18:49 18:58 Temperature 99.5 F Pulse Rate 88 91 92 Respiratory 20 26 H Rate Blood Pressure 200/84 196/94 O2 Sat by Pulse 97 92 L Oximetry 04/17/23 20:18 Temperature Pulse Rate 90 Respiratory 18 Rate Blood Pressure 164/79 O2 Sat by Pulse 92 L Oximetry - Reevaluation(s) Reevaluation #1: 04/17/23 17:58 Medical record is reviewed Reevaluation #2: 04/17/23 17:58 Patient symptoms unchanged Reevaluation #3: 04/17/23 17:58 Patient informed of results questions answered Reevaluation #4: 04/17/23 17:58 Was pt. sent in by a medical professional or institution (, PA, [employer], urgent care, hospital, or [facility]...) When possible be specific @ -no Did you speak to anyone other than the patient for history (EMS, parent, family, police, friend...)? What history was obtained from this source @ -no Did you review nursing and triage notes (agree or disagree)? Why? @ -agree Are old charts reviewed (outside hosp., previous admission, EMS record, old EKG, old radiological studies, urgent care reports/EKG's, [facility] records)? Report findings @ -yes Differential Diagnosis (chest pain, altered mental status, abdominal pain women, abdominal pain men, vaginal bleeding, weakness, fever, dyspnea, syncope, headache, dizziness, GI bleed, back pain, seizure, CVA, palpatations, mental health, musculoskeletal)? @ -prior EKG interpreted by me (3pts min.). @ -yes X-rays interpreted by me (1pt min.). @ -yes n positive for pneumonia and CHF ase CT interpreted by me (1pt min.). @ -no U/S interpreted by me (1pt. min.). @ -no What testing was considered but not performed or refused? (CT, X-rays, U/S, labs)? Why? @ -none What meds were considered but not given or refused? Why? @ -none Did you discuss the management of the patient with other professionals (professionals i.e. , PA, [employer], lab, RT, psych nurse, social science manager, conveyancer, teacher, juvenile officer, complex case manager)? Give summary @ -no Was smoking cessation discussed for >3mins.? @ -no Was critical care preformed (if so, how long)? @ -yes31 Were there social determinants of health that impacted care today? How? (Homelessness, low income, unemployed, alcoholism, drug addiction, transportation, low edu. Level, literacy, decrease access to med. care, correction, rehab)? @ -none Was there de-escalation of care discussed even if they declined (Discuss DNR or withdrawal of care, Hospice)? DNR status @ -no What co-morbidities impacted this encounter? (DM, HTN, Smoking, COPD, CAD, Cancer, CVA, ARF, Chemo, Hep., AIDS, mental health diagnosis, sleep apnea, morb id obesity)? @ -none Was patient admitted / discharged? Hospital course, mention meds given and rou te, prescriptions, significant lab abnormalities, going to OR and other pertinent info. @ - 72 female to ER with shortness of breath and weakness found to have fever at home patient comes in with pneumonia and CHF with hypertensive urgency here in the ER, patient admitted for blood pressure control diuresis and treatment of pneumonia with significant antibiotic allergies Admitted Undiagnosed new problem with uncertain prognosis? @ -no Drug Therapy requiring intensive monitoring for toxicity (Heparin, Nitro, Insulin, Cardizem)? @ -no Were any procedures done? @ -no Diagnosis/symptom? @ -CHF hypertensive urgency and pneumonia Acute, or Chronic, or Acute on Chronic? @ -Acute Uncomplicated (without systemic symptoms) or Complicated (systemic symptoms)? @ -Complicated Side effects of treatment? @ -no Exacerbation, Progression, or Severe Exacerbation? @ -exacerbation Poses a threat to life or bodily function? How? (Chest pain, USA, SD, pneumonia, PE, COPD, DKA, ARF, appy, cholecystitis, CVA, Diverticulitis, Homicidal, Suicidal, threat to staff... and all critical care pts) @ -yes with extremes of age Reevaluation #5: 04/17/23 17:58 Differential Dyspnea: Coronary syndrome, arrhythmia, tamponade, asthma, COPD, pulmonary embolism, pneumonia, pneumothorax, pulmonary effusion, anaphylaxis, diabetic ketoacidosis, flailed chest, pulmonary contusion, diaphragmatic rupture, anemia, neuromuscular, this is not meant to be an all-inclusive list. - Consultations Consultation #1: Spoke with admitting physicians who agreed to admit this patient Medical Decision Making - Medical Decision Making 72 female to ER with shortness of breath and weakness found to have fever at home patient comes in with pneumonia and CHF with hypertensive urgency here in the ER, patient admitted for blood pressure control diuresis and treatment of pneumonia with significant antibiotic allergies - Lab Data Result diagrams: 04/19/23 06:36 04/18/23 13:09 Lab Results 04/17/23 04/17/23 04/17/23 Range/Units 17:00 17:05 17:05 WBC 18.7 H (3.8-10.6) k/uL RBC 5.04 (3.80-5.40) m/uL Hgb 15.2 (11.4-16.0) gm/dL Hct 45.9 (34.0-46.0) % MCV 91.2 (80.0-100.0) fL MCH 30.1 (25.0-35.0) pg MCHC 33.0 (31.0-37.0) g/dL RDW 13.2 (11.5-15.5) % Plt Count 216 (150-450) k/uL MPV 8.1 Neutrophils % 89 % Lymphocytes % 4 % Monocytes % 5 % Eosinophils % 1 % Basophils % 0 % Neutrophils # 16.7 H (1.3-7.7) k/uL Lymphocytes # 0.8 L (1.0-4.8) k/uL Monocytes # 1.0 (0-1.0) k/uL Eosinophils # 0.1 (0-0.7) k/uL Basophils # 0.0 (0-0.2) k/uL PT 16.2 H (10.0-12.5) sec INR 1.6 H (<1.2) APTT 28.4 (22.0-30.0) sec Sodium (137-145) mmol/L Potassium (3.5-5.1) mmol/L Chloride (98-107) mmol/L Carbon Dioxide (22-30) mmol/L Anion Gap mmol/L BUN (7-17) mg/dL Creatinine (0.52-1.04) mg/dL Est GFR (CKD-EPI)AfAm (>60 ml/min/1.73 sqM) Est GFR (CKD-EPI)NonAf (>60 ml/min/1.73 sqM) Glucose (74-99) mg/dL Calcium (8.4-10.2) mg/dL Magnesium (1.6-2.3) mg/dL Total Bilirubin (0.2-1.3) mg/dL AST (14-36) U/L ALT (4-34) U/L Alkaline Phosphatase (38-126) U/L Troponin I (0.000-0.034) ng/mL NT-Pro-B Natriuret Pep pg/mL Total Protein (6.3-8.2) g/dL Albumin (3.5-5.0) g/dL Influenza Type A (PCR) Not Detected (Not Detectd) Influenza Type B (PCR) Not Detected (Not Detectd) RSV (PCR) Not Detected (Not Detectd) SARS-CoV-2 (PCR) Not Detected (Not Detectd) 04/17/23 04/17/23 Range/Units 17:05 17:05 WBC (3.8-10.6) k/uL RBC (3.80-5.40) m/uL Hgb (11.4-16.0) gm/dL Hct (34.0-46.0) % MCV (80.0-100.0) fL MCH (25.0-35.0) pg MCHC (31.0-37.0) g/dL RDW (11.5-15.5) % Plt Count (150-450) k/uL MPV Neutrophils % % Lymphocytes % % Monocytes % % Eosinophils % % Basophils % % Neutrophils # (1.3-7.7) k/uL Lymphocytes # (1.0-4.8) k/uL Monocytes # (0-1.0) k/uL Eosinophils # (0-0.7) k/uL Basophils # (0-0.2) k/uL PT (10.0-12.5) sec INR (<1.2) APTT (22.0-30.0) sec Sodium 137 (137-145) mmol/L Potassium 4.7 (3.5-5.1) mmol/L Chloride 106 (98-107) mmol/L Carbon Dioxide 21 L (22-30) mmol/L Anion Gap 10 mmol/L BUN 20 H (7-17) mg/dL Creatinine 1.20 H (0.52-1.04) mg/dL Est GFR (CKD-EPI)AfAm 52 (>60 ml/min/1.73 sqM) Est GFR (CKD-EPI)NonAf 45 (>60 ml/min/1.73 sqM) Glucose 174 H (74-99) mg/dL Calcium 9.6 (8.4-10.2) mg/dL Magnesium 1.7 (1.6-2.3) mg/dL Total Bilirubin 0.9 (0.2-1.3) mg/dL AST 32 (14-36) U/L ALT 23 (4-34) U/L Alkaline Phosphatase 95 (38-126) U/L Troponin I <0.012 (0.000-0.034) ng/mL NT-Pro-B Natriuret Pep 1220 pg/mL Total Protein 7.5 (6.3-8.2) g/dL Albumin 4.6 (3.5-5.0) g/dL Influenza Type A (PCR) (Not Detectd) Influenza Type B (PCR) (Not Detectd) RSV (PCR) (Not Detectd) SARS-CoV-2 (PCR) (Not Detectd) - EKG Data -: EKG Interpreted by Me (EKG is sinus 86 FL 196 QRS 88 QTc 369) - Radiology Data Radiology results: report reviewed (X-rays positive for CHF with recent x-ray showing likely pneumonia), image reviewed Disposition Clinical Impression: Acute exacerbation of chronic obstructive pulmonary disease, Community acquired pneumonia, Congestive heart failure, Acute respiratory failure Disposition: ADMITTED IP TO THIS HOSP Condition: Fair Is patient prescribed a controlled substance at d/c from ED?: No Time of Disposition: 18:50
[2023-04-17 17:27] LABS: Basophils % (A) 0 %; Eosinophils # (A) 0.1 k/uL (0-0.7); Eosinophils % (A) 1 %; HCT 45.9 % (34.0-46.0); HGB 15.2 gm/dL (11.4-16.0); Lymphocytes # (A) 0.8 k/uL (1.0-4.8); Lymphocytes % (A) 4 %; MCH 30.1 pg (25.0-35.0); MCV 91.2 fL (80.0-100.0); Mean Platelet Volume 8.1; Monocytes % (A) 5 %; Neutrophils # (A) 16.7 k/uL (1.3-7.7); Neutrophils % (A) 89 %; Platelet Count 216 k/uL (150-450); RBC 5.04 m/uL (3.80-5.40); RDW 13.2 % (11.5-15.5); WBC 18.7 k/uL (3.8-10.6)
--- NOTE | 2023-04-17 17:38 | XR ---
EXAMINATION TYPE: XR chest 1V portable DATE OF EXAM: 04/17/2023 5:23 PM CLINICAL INDICATION:Female, 72 years old with history of sob; COMPARISON: Chest radiographs from 04/16/2023. TECHNIQUE: XR chest 1V portable Frontal view of the chest. FINDINGS: Lungs/Pleura: There is no evidence of pleural effusion, focal consolidation, or pneumothorax. Pulmonary vascularity: Unremarkable. Heart/mediastinum: Cardiomediastinal silhouette is enlarged and stable. Atherosclerotic calcificatio ns are seen in the aorta. Two lead cardiac conduction device overlying the left hemithorax with lead tips projecting over the right ventricle and right atrium. Musculoskeletal: No acute osseous pathology. IMPRESSION: Cardiomegaly and mild pulmonary vascular congestion. Correlate with BNP for congestive heart failure.
[2023-04-17 17:39] LABS: ALT 23 U/L (4-34); AST 32 U/L (14-36); African American GFR (CKD) 52 (>60 ml/min/1.73 sqM); Albumin 4.6 g/dL (3.5-5.0); Alkaline Phosphatase 95 U/L (38-126); Anion Gap 10 mmol/L; Blood Urea Nitrogen 20 mg/dL (7-17); Calcium 9.6 mg/dL (8.4-10.2); Carbon Dioxide 21 mmol/L (22-30); Chloride 106 mmol/L (98-107); Glucose 174 mg/dL (74-99); Magnesium 1.7 mg/dL (1.6-2.3); Non-African American GFR(CKD) 45 (>60 ml/min/1.73 sqM); Potassium 4.7 mmol/L (3.5-5.1); Sodium 137 mmol/L (137-145); Total Bilirubin 0.9 mg/dL (0.2-1.3); Total Protein 7.5 g/dL (6.3-8.2)
[2023-04-17 17:40] LABS: INR 1.6 (<1.2); Partial Thromboplastin Time 28.4 sec (22.0-30.0); Prothrombin Time 16.2 sec (10.0-12.5)
[2023-04-17 17:46] LABS: NT-Pro-B-Type Natriuretic Pept 1220 pg/mL
[2023-04-17] MEDS: IPRATROPIUM-ALBUTEROL 3 ML NEB INHALATION STA (18:49)
[2023-04-17] MEDS ORDERED: PNEUMONIA PROTOCOL UTILIZED 1 EACH MISC PO PRN (18:53)
[2023-04-17] MEDS ORDERED: IPRATROPIUM-ALBUTEROL 3 ML NEB INHALATION PRN (18:53)
[2023-04-17] MEDS: PIPERACILLIN-TAZOBACTAM 3.375 GM in SODIUM CHLORIDE 0.9% 100 ML IVPB STA (20:04)
[2023-04-17] MEDS: WARFARIN 1 MG TAB PO SCH (20:20)
[2023-04-17] MEDS: AMIODARONE 100 MG TAB PO SCH (20:22)
[2023-04-17] MEDS: LEVOFLOXACIN 750MG-D5W PMX 750 MG in DEXTROSE/WATER 1 150ML.BAG IVPB STA (20:25)
[2023-04-17] MEDS ORDERED: WARFARIN 1.5 MG TAB PO ONE (21:00)
[2023-04-17] MEDS ORDERED: NON FORMULARY DRUG (Biotin [Biotin] 5 MG Capsule) PO SCH (21:00)
[2023-04-17] MEDS: LABETALOL 5 MG/ML VIAL MDV IVP STA (21:01)
[2023-04-17] MEDS: EZETIMIBE 10 MG TAB PO SCH (22:45)
[2023-04-17] MEDS: WARFARIN 3 MG TAB PO ONE (22:45)
[2023-04-17] MEDS: CHOLECALCIFEROL 125 MCG (5000 IU) TABLET PO SCH (22:45)
[2023-04-17] MEDS: ASPIRIN 81 MG PO SCH (22:45)
[2023-04-17] MEDS: PRAVASTATIN SODIUM 20 MG TAB PO SCH (22:45)
[2023-04-17] MEDS: MAGNESIUM OXIDE 400 MG TAB PO SCH (22:45)
[2023-04-17] MEDS: MEROPENEM 1 GM in SODIUM CHLORIDE 0.9% 100 ML IVPB STA (22:48)
[2023-04-17] MEDS: carvediloL 12.5 MG TAB PO SCH (22:48)
[2023-04-18] MEDS ORDERED: PIPERACILLIN-TAZOBACTAM 3.375 GM in SODIUM CHLORIDE 0.9% 100 ML IVPB SCH
[2023-04-18 07:29] LABS: INR 1.7 (<1.2)
--- NOTE | 2023-04-18 07:47 | XR ---
EXAMINATION TYPE: XR chest 1V portable DATE OF EXAM: 04/18/2023 HISTORY: Shortness of breath. COMPARISON: 04/17/2023 TECHNIQUE: Single view of the chest is submitted. FINDINGS: Demonstrated are scattered senescent parenchymal change. Improving aeration right lower lobe with mild residual noted. Stable atelectasis left medial lung bas e. The heart is stable. Hilar and mediastinal structures are within normal limits. Degenerative changes are seen of the dorsal spine. IMPRESSION: 1. Improving aeration right lower lobe with mild residual noted. Stable atelectasis left medial lung base.
[2023-04-18] MEDS: LOSARTAN 50 MG TAB PO SCH ×2 (09:14→16:57)
--- NOTE | 2023-04-18 10:09 | P.CRDCN ---
History of Present Illness Consult date: 04/18/23 Consult reason: hypertension (urgency) History of present illness: History of present illness: This is a 72-year-old female patient of Dr. Gale with past medical history of coronary artery disease, ischemic cardiomyopathy status post ICD, persistent atrial fibrillation, mitral regurgitation moderate, history of ventricular tachycardia status post AICD shock. We have been asked to evaluate the patient for hypertensive emergency. Patient was recently in the hospital on April 15 at which time she underwent a upgrade to a dual-chamber ICD. Patient states that she developed shortness of breath and pain across the top of her back a fat igue and tired feeling. She states she has not slept in the last 4 days. She denies history of asthma or COPD. She does have history of smoking and quit in 1999. Patient denies having any lower extremity edema no dizziness no syncopal episodes no palpitation. No nausea or vomiting. No blood in her urine or stool. No stroke or seizure. She has started treatment for pneumonia with IV antibiotics. Her blood pressure on presentation was 200/84 and now 86/57. Patient is status post labetalol 20 mg IV push x 1 and resumed on her home cardiac medications. Patient feels the nebulizers helped her breathing. EKG sinus rhythm Chest x-ray: #1 cardiomegaly with mild pulmonary vascular congestion. #2 improving aeration right lower lobe with mild residual noted. Stable atelectasis left medial lung base. WBC 18.7, hemoglobin 15.2, platelet count 216. INR 1.6. Repeat INR 1.7. Sodium 137, potassium 4.7, BUN 20 creatinine 1.2. Liver function test are normal. Magnesium 1.7. Troponin negative x 1. proBNP 1220. Influenza A, influenza B, RSV and COVID-19 not detected. Echocardiogram performed on 04/16/2023 revealed technically difficult study. Left ventricular systolic function mildly impaired with apical hypokinesis. EF 45 to 50%. Limited Doppler study with mild mitral and tricuspid regurgitation. Home cardiac medications: Amiodarone 100 mg every 48 hours, aspirin 81 mg daily, Coreg 25 mg twice daily, Zetia 10 mg daily, losartan 100 mg daily and 50 mg at 4 PM, magnesium 64 mg at bedtime, pravastatin 20 mg at bedtime, Coumadin 1 mg Saturday and 1-1/2 mg on the other days. Cardiac catheterization performed 11/28/[address] Neno Donahue revealed severe three-vessel coronary artery disease with totally occluded mid LAD, patent stents within the right coronary artery with 50% in-stent restenosis and moderate nonobstructive atherosclerotic plaque in the circumflex coronary artery. Recommendations at that time was optimizing medical therapy. Lexiscan Cardiolite stress test performed on 02/20/2023 in the office revealed negative stress test by EKG criteria. Abnormal nuclear scan showing ischemic cardiomyopathy with moderate to severe LV dysfunction without any ischemia. Review Of Systems: At the time of my exam: CONSTITUTIONAL: Denies fever or chills. HEENT: Denies blurred vision, vision changes, or eye pain. Denies hemoptysis CARDIOVASCULAR: Denies chest pain. Denies orthopnea. Denies PND. Denies palpitations RESPIRATORY: Reports shortness of breath. Denies cough GASTROINTESTINAL: Denies abdominal pain. Denies nausea or vomiting. HEMATOLOGIC: Denies bleeding disorders. GENITOURINARY: Denies any blood in urine. SKIN: Denies pruitis. Denies rash. Physical examination: Gen: This is a 72-year-old female resting in bed and appears to be comfortable and in no acute distress VS: reviewed HEENT: Head is atraumatic, normocephalic. Pupils equal, round. Sclerae is anicteric. NECK: Supple. No JVD. LUNGS: Clear to auscultation. No wheezes or rhonchi. No intercostal retractions. HEART: Regular rate and rhythm. No murmur. ABDOMEN: Soft No tenderness. EXTREMITIES: No pedal edema. No calf tenderness. NEUROLOGICAL: Patient is awake, alert and oriented x3. Assessment: Shortness of breath Hypertensive urgency Known history of coronary artery disease Ischemic cardiomyopathy with recent upgrade to dual-chamber ICD Persistent atrial fibrillation Mitral regurgitation moderate History of ventricular tachycardia status post AICD shock, maintained on amiodarone Plan: Continue patient's home cardiac medications Further recommendations to follow based upon clinical course Thank you kindly for this consultation. Nurse practitioner note has been reviewed, I agree with documented findings and plan of care. Patient was seen and examined. Past Medical History Past Medical History: Atrial Fibrillation, Hyperlipidemia, Hypertension, Myocardial Infarction ([place]), Pneumonia, Thyroid Disorder Additional Past Medical History / Comment(s): SEE DR GALE H&P, STATES SILENT "[place] or heat stroke", RADIATED THYROID for nodules, hx migraines, SOB, gout, Last Myocardial Infarction Date:: 1997 History of Any Multi-Drug Resistant Organisms: None Reported Past Surgical History: AICD, Heart Catheterization With Stent, Pacemaker Additional Past Surgical History / Comment(s): STATES at least 7 STENTS, [employer] AICD, left upper extremity,venogram, cinefluoroscopy of AICD lead, thyroidectomy Past Anesthesia/Blood Transfusion Reactions: No Reported Reaction Date of Last Stent Placement:: 2014 Type of Cardiac Device: AICD Device Placement Date:: 01/29/17 Past Psychological History: No Psychological Hx Reported Smoking Status: Former smoker Past Alcohol Use History: None Reported Additional Past Alcohol Use History / Comment(s): QUIT SMOKING 1999, SMOKED 1/2 PPD FROM AGE 15 Past Drug Use History: None Reported - Past Family History Sister(s) Family Medical History: Cancer Additional Family Medical History / Comment(s): Pancreatic Medications and Allergies Home Medications Medication Instructions Recorded Confirmed Type Aspirin [Adult Low Dose Aspirin EC] 81 mg PO BID 01/22/17 04/17/23 History Ezetimibe [Zetia] 10 mg PO HS 01/22/17 04/17/23 History Pravastatin Sodium [Pravachol] 20 mg PO HS 01/22/17 04/17/23 History Biotin 10 mg PO HS 11/28/22 04/17/23 History Cholecalciferol [Vitamin D3 (125 125 mcg PO HS 11/28/22 04/17/23 History Mcg = 5000 Iu)] Magnesium Chloride [Slow-Mag] 64 mg PO HS 11/28/22 04/17/23 History Amiodarone [Cordarone] 100 mg PO Q48H 02/20/23 04/17/23 History Warfarin [Coumadin] 1 mg PO MOWEFR@2100 02/20/23 04/17/23 History carvediloL 25 mg PO BID #180 tablet 04/15/23 04/17/23 Rx Losartan Potassium 50 mg PO DAILY@1600 04/17/23 04/17/23 History Losartan Potassium 100 mg PO DAILY 04/17/23 04/17/23 History Warfarin [Coumadin] 1.5 mg PO SUTUTHSA@2100 04/17/23 04/17/23 History Allergies Allergy/AdvReac Type Severity Reaction Status Date / Time aspartame Allergy Severe hives, Verified 04/17/23 19:51 [From Nutrasweet Aspartame] tongue swelling hydralazine Allergy Severe Anaphylaxis Verified 04/17/23 19:51 Sulfa (Sulfonamide Allergy Severe "bleeding Verified 04/17/23 19:51 Antibiotics) in eyes" nickel Allergy Rash/Hives Verified 04/17/23 19:51 Penicillins Allergy Rash/Hives/ Verified 04/17/23 19:51 itching Tetracyclines Allergy rapid Verified 04/17/23 19:51 breathing ramipril [From Altace] AdvReac Cough Verified 04/17/23 19:51 valsartan AdvReac dizzy, Verified 04/17/23 19:51 confused Physical Exam Vitals: Vital Signs Temp Pulse Pulse Resp BP BP Pulse Ox 04/18/23 07:17 98.9 F 68 19 94/62 95 04/18/23 01:14 99 F 67 18 107/66 96 04/17/23 21:43 98.7 F 89 18 151/88 93 L 04/17/23 20:18 90 18 164/79 92 L 04/17/23 18:58 92 04/17/23 18:49 91 26 H 196/94 92 L 04/17/23 16:26 99.5 F 88 20 200/84 97 Intake and Output 04/17/23 04/18/23 04/18/23 22:59 06:59 14:59 Other: # Voids 1 Weight 92.533 kg Results 04/17/23 17:05 04/17/23 17:05 Cardiac Enzymes 04/17/23 04/17/23 Range/Units 17:05 17:05 AST 32 (14-36) U/L Troponin I <0.012 (0.000-0.034) ng/mL Coagulation 04/17/23 04/18/23 Range/Units 17:05 07:09 PT 16.2 H 17.0 H (10.0-12.5) sec APTT 28.4 (22.0-30.0) sec CBC 04/17/23 Range/Units 17:05 WBC 18.7 H (3.8-10.6) k/uL RBC 5.04 (3.80-5.40) m/uL Hgb 15.2 (11.4-16.0) gm/dL Hct 45.9 (34.0-46.0) % Plt Count 216 (150-450) k/uL Comprehensive Metabolic Panel 04/17/23 Range/Units 17:05 Sodium 137 (137-145) mmol/L Potassium 4.7 (3.5-5.1) mmol/L Chloride 106 (98-107) mmol/L Carbon Dioxide 21 L (22-30) mmol/L BUN 20 H (7-17) mg/dL Creatinine 1.20 H (0.52-1.04) mg/dL Glucose 174 H (74-99) mg/dL Calcium 9.6 (8.4-10.2) mg/dL AST 32 (14-36) U/L ALT 23 (4-34) U/L Alkaline Phosphatase 95 (38-126) U/L Total Protein 7.5 (6.3-8.2) g/dL Albumin 4.6 (3.5-5.0) g/dL Current Medications Generic Name Dose Route Start Last Admin Trade Name Freq PRN Reason Stop Dose Admin Albuterol/Ipratropium 3 ml 04/17/23 18:53 Ipratropium-Albuterol 3 Ml Neb INHALATION RT-Q4H PRN shortness of breath Amiodarone HCl 100 mg 04/17/23 21:00 04/17/23 20:22 Amiodarone 100 Mg Tab PO Not Given Q2D SOLEDAD Aspirin 81 mg 04/17/23 21:00 04/17/23 22:45 Aspirin 81 Mg PO 81 mg BID SOLEDAD Administration Carvedilol 25 mg 04/17/23 21:00 04/18/23 06:28 Carvedilol 12.5 Mg Tab PO 25 mg BID-W/MEALS SOLEDAD Administration Cholecalciferol 125 mcg 04/17/23 21:00 04/17/23 22:45 Cholecalciferol 125 Mcg (5000 Iu) Tablet PO 125 mcg HS SOLEDAD Administration Ezetimibe 10 mg 04/17/23 21:00 04/17/23 22:45 Ezetimibe 10 Mg Tab PO 10 mg HS SOLEDAD Administration Levofloxacin 750 mg 04/19/23 21:00 Levofloxacin 750 Mg Tab PO 04/25/23 21:01 Q48H SOLEDAD Protocol Losartan Potassium 100 mg 04/18/23 09:00 Losartan 50 Mg Tab PO QAM SOLEDAD Losartan Potassium 50 mg 04/18/23 16:00 Losartan 50 Mg Tab PO 1600 SOLEDAD Magnesium Oxide 400 mg 04/17/23 21:00 04/17/23 22:45 Magnesium Oxide 400 Mg Tab PO 400 mg HS SOLEDAD Administration Miscellaneous Information 1 each 04/17/23 18:53 Pneumonia Protocol Utilized 1 Each Misc PO ONCE PRN Per Protocol Miscellaneous Information 0 each 04/17/23 20:05 Warfarin Per Pharmacy MISCELLANE DIRECTED PRN PER PROTOCOL Pravastatin Sodium 20 mg 04/17/23 21:00 04/17/23 22:45 Pravastatin Sodium 20 Mg Tab PO 20 mg HS SOLEDAD Administration Intake and Output 04/17/23 04/18/23 04/18/23 22:59 06:59 14:59 Other: # Voids 1 Weight 92.533 kg 04/17/23 17:05 04/17/23 17:05
[2023-04-18 13:24] LABS: Basophils % (A) 0 %; Eosinophils # (A) 0.1 k/uL (0-0.7); Eosinophils % (A) 1 %; HCT 39.1 % (34.0-46.0); HGB 12.9 gm/dL (11.4-16.0); Lymphocytes # (A) 1.4 k/uL (1.0-4.8); Lymphocytes % (A) 9 %; MCH 30.6 pg (25.0-35.0); MCHC 33.1 g/dL (31.0-37.0); MCV 92.4 fL (80.0-100.0); Mean Platelet Volume 8.2; Monocytes # (A) 0.8 k/uL (0-1.0); Monocytes % (A) 5 %; Neutrophils # (A) 13.2 k/uL (1.3-7.7); Neutrophils % (A) 84 %; Platelet Count 183 k/uL (150-450); RBC 4.23 m/uL (3.80-5.40); RDW 13.6 % (11.5-15.5); WBC 15.8 k/uL (3.8-10.6)
[2023-04-18 13:34] LABS: ALT 19 U/L (4-34); AST 32 U/L (14-36); African American GFR (CKD) 36 (>60 ml/min/1.73 sqM); Albumin 3.8 g/dL (3.5-5.0); Albumin/Globulin Ratio 1.5; Alkaline Phosphatase 64 U/L (38-126); Anion Gap 9 mmol/L; Blood Urea Nitrogen 28 mg/dL (7-17); Calcium 8.9 mg/dL (8.4-10.2); Carbon Dioxide 22 mmol/L (22-30); Chloride 105 mmol/L (98-107); Globulin 2.5 g/dL; Glucose 180 mg/dL (74-99); Non-African American GFR(CKD) 31 (>60 ml/min/1.73 sqM); Potassium 4.6 mmol/L (3.5-5.1); Sodium 136 mmol/L (137-145); Total Protein 6.3 g/dL (6.3-8.2)
[2023-04-18 16:07] VITALS: RESP 18
[2023-04-18] MEDS: WARFARIN 2 MG TAB PO ONE (16:59)
--- NOTE | 2023-04-18 17:09 | P.HPIM ---
History of Present Illness H&P Date: 04/18/23 Nicky Ballesteros, is a 72-year-old female who presented to [facility] emergency room with a chief complaint of worsening shortness of breath. She was evaluated in the emergency room vital examination on presentation revealed a temperature of 99.5 pulse 88 respiration 20 blood pressure 200/84 pulse ox 97% on room air Laboratory data revealed a white blood count of 18.7 hemoglobin 15.2 platelet count 216 INR 1.6 BUN 20 creatinine 1.2 glucose 174 BNP was 1220 troponin 0.012 influenza a and B RSV and SARS were negative Testing in the emergency room revealed chest x-ray done in the emergency room revealed cardiomegaly and mild pulmonary vascular congestion, EKG revealed sinus rhythm with nonspecific T-wave abnormalities Past Medical History Past Medical History: Atrial Fibrillation, Hyperlipidemia, Hypertension, Myocardial Infarction ([place]), Pneumonia, Thyroid Disorder Additional Past Medical History / Comment(s): SEE DR GALEANA H&P, STATES SILENT "[place] or heat stroke", RADIATED THYROID for nodules, hx migraines, SOB, gout, Last Myocardial Infarction Date:: 1997 History of Any Multi-Drug Resistant Organisms: None Reported Past Surgical History: AICD, Heart Catheterization With Stent, Pacemaker Additional Past Surgical History / Comment(s): STATES at least 7 STENTS, [employer] AICD, left upper extremity,venogram, cinefluoroscopy of AICD lead, thyroidectomy Past Anesthesia/Blood Transfusion Reactions: No Reported Reaction Date of Last Stent Placement:: 2014 Type of Cardiac Device: AICD Device Placement Date:: 01/29/17 Past Psychological History: No Psychological Hx Reported Smoking Status: Former smoker Past Alcohol Use History: None Reported Additional Past Alcohol Use History / Comment(s): QUIT SMOKING 1999, SMOKED 1/2 PPD FROM AGE 15 Past Drug Use History: None Reported - Past Family History Sister(s) Family Medical History: Cancer Additional Family Medical History / Comment(s): Pancreatic Medications and Allergies Home Medications Medication Instructions Recorded Confirmed Type Aspirin [Adult Low Dose Aspirin EC] 81 mg PO BID 01/22/17 04/17/23 History Ezetimibe [Zetia] 10 mg PO HS 01/22/17 04/17/23 History Pravastatin Sodium [Pravachol] 20 mg PO HS 01/22/17 04/17/23 History Biotin 10 mg PO HS 11/28/22 04/17/23 History Cholecalciferol [Vitamin D3 (125 125 mcg PO HS 11/28/22 04/17/23 History Mcg = 5000 Iu)] Magnesium Chloride [Slow-Mag] 64 mg PO HS 11/28/22 04/17/23 History Amiodarone [Cordarone] 100 mg PO Q48H 02/20/23 04/17/23 History Warfarin [Coumadin] 1 mg PO MOWEFR@2100 02/20/23 04/17/23 History carvediloL 25 mg PO BID #180 tablet 04/15/23 04/17/23 Rx Losartan Potassium 50 mg PO DAILY@1600 04/17/23 04/17/23 History Losartan Potassium 100 mg PO DAILY 04/17/23 04/17/23 History Warfarin [Coumadin] 1.5 mg PO SUTUTHSA@2100 04/17/23 04/17/23 History Allergies Allergy/AdvReac Type Severity Reaction Status Date / Time aspartame Allergy Severe hives, Verified 04/17/23 19:51 [From NutrasMashalotet Aspartame] tongue swelling hydralazine Allergy Severe Anaphylaxis Verified 04/17/23 19:51 Sulfa (Sulfonamide Allergy Severe "bleeding Verified 04/17/23 19:51 Antibiotics) in eyes" nickel Allergy Rash/Hives Verified 04/17/23 19:51 Penicillins Allergy Rash/Hives/ Verified 04/17/23 19:51 itching Tetracyclines Allergy rapid Verified 04/17/23 19:51 breathing ramipril [From Altace] AdvReac Cough Verified 04/17/23 19:51 valsartan AdvReac dizzy, Verified 04/17/23 19:51 confused Physical Exam Vitals: Vital Signs Temp Pulse Pulse Resp BP BP Pulse Ox 04/18/23 09:11 61 86/57 04/18/23 07:17 98.9 F 68 19 94/62 95 04/18/23 01:14 99 F 67 18 107/66 96 04/17/23 21:43 98.7 F 89 18 151/88 93 L 04/17/23 20:18 90 18 164/79 92 L 04/17/23 18:58 92 04/17/23 18:49 91 26 H 196/94 92 L 04/17/23 16:26 99.5 F 88 20 200/84 97 Intake and Output 04/17/23 04/18/23 04/18/23 22:59 06:59 14:59 Intake Total 240 Balance 240 Intake: Oral 240 Other: # Voids 1 1 Weight 92.533 kg In general patient is alert and oriented x 3 in no distress HEENT head normocephalic and atraumatic Neck is supple no JVD no goiter no lymphadenopathy no carotid bruit Chest examination reveals a scattered crackles bilaterally no wheezing Cardiac exam reveals regular heart sounds S1 and S2 no gallops no murmurs Abdomen is soft nontender no organomegaly with normal bowel sounds Extremity exam reveals no edema no cyanosis or clubbing Neurological examination reveals no gross focal deficits Results CBC & Chem 7: 04/18/23 13:09 04/18/23 13:09 Labs: Abnormal Lab Results - Last 24 Hours (Table) 04/17/23 04/17/23 04/17/23 Range/Units 17:05 17:05 17:05 WBC 18.7 H (3.8-10.6) k/uL Neutrophils # 16.7 H (1.3-7.7) k/uL Lymphocytes # 0.8 L (1.0-4.8) k/uL PT 16.2 H (10.0-12.5) sec INR 1.6 H (<1.2) Carbon Dioxide 21 L (22-30) mmol/L BUN 20 H (7-17) mg/dL Creatinine 1.20 H (0.52-1.04) mg/dL Glucose 174 H (74-99) mg/dL 04/18/23 Range/Units 07:09 WBC (3.8-10.6) k/uL Neutrophils # (1.3-7.7) k/uL Lymphocytes # (1.0-4.8) k/uL PT 17.0 H (10.0-12.5) sec INR 1.7 H (<1.2) Carbon Dioxide (22-30) mmol/L BUN (7-17) mg/dL Creatinine (0.52-1.04) mg/dL Glucose (74-99) mg/dL Thrombosis Risk Factor Assmnt - Choose All That Apply Any of the Below Risk Factors Present?: Yes Each Factor Represents 1 point: Obesity (BMI >25) Other Risk Factors: Yes Each Risk Factor Represents 2 Points: Age 61-74 years Thrombosis Risk Factor Assessment Total Risk Factor Score: 3 Thrombosis Risk Factor Assessment Level: Moderate Risk Assessment and Plan Plan: Hypertensive emergency on presentation Acute exacerbation of congestive heart failure A right lower lobe infiltrate, possible pneumonia, patient has low-grade fever and leukocytosis on presentation Underlying history of ischemic cardiomyopathy History of ventricular tachycardia status post AICD placement Underlying history of coronary artery disease Underlying history of persistent atrial fibrillation Underlying history of hypertension Underlying history of hyperlipidemia Underlying history of hypothyroidism Underlying history of gout At this time patient is admitted to medical floor She was started on IV antibiotics for possible pneumonia She was started on IV Lasix Home medications reviewed and reordered Cardiology consultation requested Will follow closely
[2023-04-18] MEDS ORDERED: WARFARIN 1.5 MG TAB PO SCH (18:56)
[2023-04-18 21:18] LABS: Appearance,Urine Clear (Clear); Bilirubin,Urine Negative (Negative); Blood,Urine Negative (Negative); Color,Urine Yellow; Glucose,Urine (UA) Negative (Negative); Ketones,Urine Negative (Negative); Leukocyte Esterase,Urine Negative (Negative); Nitrite,Urine Negative (Negative); Protein,Urine Trace (Negative); Specific Gravity,Urine 1.023 (1.001-1.035); Urobilinogen,Urine <2.0 mg/dL (<2.0)
--- NOTE | 2023-04-18 22:28 | P.CONS ---
History of Present Illness - Reason for Consult Consult date: 04/18/23 Antibiotics Requesting physician: Danie Mckoy - Chief Complaint Increasing shortness of breath x 1 day - History of Present Illness Patient is a 72-year-old female with a past medical history pertinent for atrial fibrillation hypertension hyperlipidemia [place], patient recently underwent upgrade of her pacemaker to dual-chamber ICD that was done on April 15, 2022 patient mention at the end of the procedure she did have a sudden shortness of breath however denies having any chest pain her symptoms were attributed to possible medication she has received during the procedure and the patient was subsequently discharged home the next day patient presenting back to the hospital within 24-hour concerning for increasing shortness of breath and pain across the top of her back along with fatigue and feeling tired patient denies having significant cough or sputum production denies any nausea no vomiting some vague abdominal pain did seem to have resolved no diarrhea or constipation no urinary symptoms patient on presentation to the hospital did have a low-grade fever of 99.5 F patient was not tachycardic hypotensive or hypoxic patient did have white count of 18.7 with a left shift BUN/creatinine has been mildly elevated liver isms are normal influenza RSV COVID testing was negative patient did have a chest x-ray cardiomegaly with mild pulm vascular congestion correlate for congestive heart failure repeat chest x-ray done this morning shows improved aeration right lower lobe with mild residual noted stable atelectasis left medial lung base patient did received meropenem and Levaquin down in the ER infectious disease was consulted for further management of antibiotic because of her multiple allergies Review of Systems Positive point and negatives has been mentioned in the HPI, complete review of systems was performed and all other systems are negative Past Medical History Past Medical History: Atrial Fibrillation, Hyperlipidemia, Hypertension, Myocardial Infarction ([place]), Pneumonia, Thyroid Disorder Additional Past Medical History / Comment(s): SEE DR GALEANA H&P, STATES SILENT "[place] or heat stroke", RADIATED THYROID for nodules, hx migraines, SOB, gout, Last Myocardial Infarction Date:: 1997 History of Any Multi-Drug Resistant Organisms: None Reported Past Surgical History: AICD, Heart Catheterization With Stent, Pacemaker Additional Past Surgical History / Comment(s): STATES at least 7 STENTS, [employer] AICD, left upper extremity,venogram, cinefluoroscopy of AICD lead, thyroidectomy Past Anesthesia/Blood Transfusion Reactions: No Reported Reaction Date of Last Stent Placement:: 2014 Type of Cardiac Device: AICD Device Placement Date:: 01/29/17 Past Psychological History: No Psychological Hx Reported Smoking Status: Former smoker Past Alcohol Use History: None Reported Additional Past Alcohol Use History / Comment(s): QUIT SMOKING 1999, SMOKED 1/2 PPD FROM AGE 15 Past Drug Use History: None Reported - Past Family History Sister(s) Family Medical History: Cancer Additional Family Medical History / Comment(s): Pancreatic Medications and Allergies Home Medications Medication Instructions Recorded Confirmed Type Aspirin [Adult Low Dose Aspirin EC] 81 mg PO BID 01/22/17 04/17/23 History Ezetimibe [Zetia] 10 mg PO HS 01/22/17 04/17/23 History Pravastatin Sodium [Pravachol] 20 mg PO HS 01/22/17 04/17/23 History Biotin 10 mg PO HS 11/28/22 04/17/23 History Cholecalciferol [Vitamin D3 (125 125 mcg PO HS 11/28/22 04/17/23 History Mcg = 5000 Iu)] Magnesium Chloride [Slow-Mag] 64 mg PO HS 11/28/22 04/17/23 History Amiodarone [Cordarone] 100 mg PO Q48H 02/20/23 04/17/23 History Warfarin [Coumadin] 1 mg PO MOWEFR@209902/20/23 04/17/23 History carvediloL 25 mg PO BID #180 tablet 04/15/23 04/17/23 Rx Losartan Potassium 50 mg PO DAILY@1600 04/17/23 04/17/23 History Losartan Potassium 100 mg PO DAILY 04/17/23 04/17/23 History Warfarin [Coumadin] 1.5 mg PO SUTUTHSA@2100 04/17/23 04/17/23 History Levofloxacin [Levaquin] 500 mg PO DAILY 3 Days #3 tab 04/19/23 Rx Allergies Allergy/AdvReac Type Severity Reaction Status Date / Time aspartame Allergy Severe hives, Verified 04/17/23 19:51 [From Nutrasweet Aspartame] tongue swelling hydralazine Allergy Severe Anaphylaxis Verified 04/17/23 19:51 Sulfa (Sulfonamide Allergy Severe "bleeding Verified 04/17/23 19:51 Antibiotics) in eyes" nickel Allergy Rash/Hives Verified 04/17/23 19:51 Penicillins Allergy Rash/Hives/ Verified 04/17/23 19:51 itching Tetracyclines Allergy rapid Verified 04/17/23 19:51 breathing ramipril [From Altace] AdvReac Cough Verified 04/17/23 19:51 valsartan AdvReac dizzy, Verified 04/17/23 19:51 confused Physical Exam Vitals: Vital Signs Temp Pulse Pulse Resp BP BP Pulse Ox 04/18/23 09:11 61 86/57 04/18/23 07:17 98.9 F 68 19 94/62 95 04/18/23 01:14 99 F 67 18 107/66 96 04/17/23 21:43 98.7 F 89 18 151/88 93 L 04/17/23 20:18 90 18 164/79 92 L 04/17/23 18:58 92 04/17/23 18:49 91 26 H 196/94 92 L 04/17/23 16:26 99.5 F 88 20 200/84 97 Intake and Output 04/17/23 04/18/23 04/18/23 22:59 06:59 14:59 Intake Total 240 Balance 240 Intake: Oral 240 Other: # Voids 1 1 Weight 92.533 kg GENERAL DESCRIPTION: Elderly female up in bed, no distress. No tachypnea or accessory muscle of respiration use. HEENT: Shows Pallor , no scleral icterus. Oral mucous membrane is dry. No pharyngeal erythema or thrush NECK: Trachea central, no thyromegaly. LUNGS: Unlabored breathing. Decreased breath sound at the base HEART: S1, S2, regular rate and rhythm. No loud murmur ABDOMEN: Soft, no tenderness , guarding or rigidity, no organomegaly EXTREMITIES: No edema of feet. SKIN: No rash, no masses palpable. NEUROLOGICAL: The patient is awake, alert, oriented x3, mood and affect normal. Results CBC & Chem 7: 04/19/23 06:36 04/18/23 13:09 Labs: Abnormal Lab Results - Last 24 Hours (Table) 04/17/23 04/17/23 04/17/23 Range/Units 17:05 17:05 17:05 WBC 18.7 H (3.8-10.6) k/uL Neutrophils # 16.7 H (1.3-7.7) k/uL Lymphocytes # 0.8 L (1.0-4.8) k/uL PT 16.2 H (10.0-12.5) sec INR 1.6 H (<1.2) Carbon Dioxide 21 L (22-30) mmol/L BUN 20 H (7-17) mg/dL Creatinine 1.20 H (0.52-1.04) mg/dL Glucose 174 H (74-99) mg/dL 04/18/23 Range/Units 07:09 WBC (3.8-10.6) k/uL Neutrophils # (1.3-7.7) k/uL Lymphocytes # (1.0-4.8) k/uL PT 17.0 H (10.0-12.5) sec INR 1.7 H (<1.2) Carbon Dioxide (22-30) mmol/L BUN (7-17) mg/dL Creatinine (0.52-1.04) mg/dL Glucose (74-99) mg/dL Assessment and Plan (1) Allergy to multiple antibiotics Status: Acute Code(s): Z88.1 - ALLERGY STATUS TO OTHER ANTIBIOTIC AGENTS SNOMED Code(s): 413422727 (2) Community acquired pneumonia Status: Acute Code(s): J18.9 - PNEUMONIA, UNSPECIFIED ORGANISM SNOMED Code(s): 756467543 (3) Leukocytosis Status: Acute Code(s): D72.829 - ELEVATED WHITE BLOOD CELL COUNT, UNSPECIFIED SNOMED Code(s): 545364485 Plan: 1patient presented to hospital with increasing shortness of breath patient also have a cough recently underwent procedure to upgrade her pacemaker to dual- chamber ICD now with evidence of elevated white count low-grade fever and did have some infiltrate at the lung base with a question of possible pneumonia patient abdominal soft medical examination evidence of any cellulitis 2multiple antibiotic allergies 3we will check a CRP procalcitonin try to obtain a sputum 4-empirically add Rocephin 1 g daily while waiting for the workup to be completed Multiple question concern answered We will follow on clinical condition and cultures to further adjust medication if needed Thank you for this consultation we will follow the patient along with you Dictation was produced using [employer] software. please excuse any grammatical, word or spelling errors. Time with Patient: Greater than 30
[2023-04-19 07:09] LABS: INR 1.4 (<1.2); Prothrombin Time 14.6 sec (10.0-12.5)
--- NOTE | 2023-04-19 07:15 | XR ---
EXAMINATION TYPE: XR chest 2V DATE OF EXAM: 04/19/2023 HISTORY: Shortness of breath. COMPARISON: May 04 TECHNIQUE: Single view of the chest is submitted. FINDINGS: Demonstrated are scattered senescent parenchymal change. Examination right hemidiaphragm with patchy density right medial lung base may reflect atelectasis or infiltrate. The heart is stable. Hilar and mediastinal structures are within normal limits. Degenerative changes are seen of the dorsal spine. IMPRESSION: 1. Examination right hemidiaphragm with patchy density right medial lung base may reflect atelectasi s or infiltrate.
[2023-04-19 07:57] VITALS: TEMP 98.5
[2023-04-19 09:32] VITALS: BP 101/65; PULSE 58
--- NOTE | 2023-04-19 09:59 | P.PN ---
Subjective Progress Note Date: 04/19/23 Nicky Ballesteros, is a 72-year-old female who presented to [facility] emergency room with a chief complaint of worsening shortness of breath. She was evaluated in the emergency room vital examination on presentation revealed a temperature of 99.5 pulse 88 respiration 20 blood pressure 200/84 p ulse ox 97% on room air Laboratory data revealed a white blood count of 18.7 hemoglobin 15.2 platelet count 216 INR 1.6 BUN 20 creatinine 1.2 glucose 174 BNP was 1220 troponin 0.012 influenza a and B RSV and SARS were negative Testing in the emergency room revealed chest x-ray done in the emergency room revealed cardiomegaly and mild pulmonary vascular congestion, EKG revealed sinus rhythm with nonspecific T-wave abnormalities on 04/19/2023 patient is alert and oriented 3. Patient remains on IV Rocephin per infectious disease. Awaiting further recommendations from cardiology and infectious disease services. Current vital signs temp 98.5, heart rate 64, respiratory rate 18, blood pressure 101/65 with pulse ox of 95% on room air. This time patient reports improvement with shortness breath. Patient denies chest pain. Patient denies nausea vomiting or diarrhea. Patient denies any u rinary burning or frequency Objective - Vital Signs Vital signs: Vital Signs Temp 98.5 F 04/19/23 07:15 Pulse 58 L 04/19/23 09:31 Resp 18 04/19/23 07:15 BP 101/65 04/19/23 09:31 Pulse Ox 95 04/19/23 07:15 FiO2 Intake & Output 04/18/23 04/19/23 04/19/23 18:59 06:59 18:59 Intake Total 240 Balance 240 Intake: Oral 240 Other: # Voids 1 2 - Exam In general patient is alert and oriented x 3 in no distress HEENT head normocephalic and atraumatic Neck is supple no JVD no goiter no lymphadenopathy no carotid bruit Chest examination reveals a scattered crackles bilaterally no wheezing Cardiac exam reveals regular heart sounds S1 and S2 no gallops no murmurs Abdomen is soft nontender no organomegaly with normal bowel sounds Extremity exam reveals no edema no cyanosis or clubbing Neurological examination reveals no gross focal deficits - Labs CBC & Chem 7: 04/18/23 13:09 04/18/23 13:09 Labs: Abnormal Lab Results - Last 24 Hours (Table) 04/18/23 04/18/23 04/18/23 Range/Units 13:09 13:09 13:09 WBC 15.8 H (3.8-10.6) k/uL Neutrophils # 13.2 H (1.3-7.7) k/uL PT (10.0-12.5) sec INR (<1.2) Sodium 136 L (137-145) mmol/L BUN 28 H (7-17) mg/dL Creatinine 1.65 H (0.52-1.04) mg/dL Glucose 180 H (74-99) mg/dL C-Reactive Protein 21.0 H (<1.0) mg/dL Procalcitonin (0.02-0.09) ng/mL Urine Protein (Negative) 04/18/23 04/18/23 04/19/23 Range/Units 13:09 21:00 06:36 WBC (3.8-10.6) k/uL Neutrophils # (1.3-7.7) k/uL PT 14.6 H (10.0-12.5) sec INR 1.4 H (<1.2) Sodium (137-145) mmol/L BUN (7-17) mg/dL Creatinine (0.52-1.04) mg/dL Glucose (74-99) mg/dL C-Reactive Protein (<1.0) mg/dL Procalcitonin 0.97 H (0.02-0.09) ng/mL Urine Protein Trace H (Negative) Microbiology - Last 24 Hours (Table) 04/17/23 19:45 Blood Culture - Preliminary Blood 04/17/23 20:00 Blood Culture - Preliminary Blood Assessment and Plan Plan: Hypertensive emergency on presentation Acute exacerbation of congestive heart failure A right lower lobe infiltrate, possible pneumonia, patient has low-grade fever and leukocytosis on presentation Underlying history of ischemic cardiomyopathy History of ventricular tachycardia status post AICD placement Underlying history of coronary artery disease Underlying history of persistent atrial fibrillation Underlying history of hypertension Underlying history of hyperlipidemia Underlying history of hypothyroidism Underlying history of gout At this time patient is admitted to medical floor She was started on IV antibiotics for possible pneumonia Home medications reviewed and reordered Cardiology consultation requested Will follow closely
[2023-04-19 11:05] LABS: Basophils # (A) 0.05 X 10*3/uL (0.00-0.10); Basophils % (A) 0.4 %; Eosinophils # (A) 0.08 X 10*3/uL (0.04-0.35); Eosinophils % (A) 0.6 %; HCT 38.3 % (37.2-46.3); HGB 12.6 g/dL (12.0-15.0); Lymphocytes # (A) 1.97 X 10*3/uL (0.90-5.00); MCH 30.3 pg (27.0-32.0); MCHC 32.9 g/dL (32.0-37.0); MCV 92.1 FL (80.0-97.0); Mean Platelet Volume 11.8 FL (9.5-12.2); Monocytes # (A) 1.16 X 10*3/uL (0.20-1.00); Monocytes % (A) 8.8 %; NRBC Per 100 WBC 0 X 10*3/uL (0.00-0.01); Neutrophils # (A) 9.83 X 10*3/uL (1.80-7.70); Neutrophils % (A) 74.7 %; Platelet Count 196 X 10*3/uL (140-440); RBC 4.16 X 10*6/uL (4.10-5.20); RDW 13.6 % (11.5-14.5); WBC 13.16 X 10*3/uL (4.50-10.00)
--- NOTE | 2023-04-19 11:19 | P.PN ---
Subjective Progress Note Date: 04/19/23 This is a pleasant 72-year-old female patient who follows with Dr. Breaux in the office. Has a past medical history of CAD, ischemic cardiomyopathy, status post ICD, persistent atrial fibrillation currently maintaining sinus mechanism, mitral regurgitation, ventricular tachycardia requiring shock from the ICD. We were asked see the patient in consultation for hypertensive emergency. She recently was in the hospital on April 15 at which time she underwent an upgrade to a dual-chamber ICD. She developed shortness of breath, pain across the top of her back as well as fatigue and feeling very tired and weak following her implant. She did not sleep well for the last 4 days or so. She denies any lower extremity edema, orthopnea or PND. She has had no dizziness or syncope. She denies any palpitations. No nausea or vomiting no bleeding. She is currently being treated with antibiotics for pneumonia. Blood pressure is better controlled. She slept well last night and is feeling significantly better today and wanting to go home. Objective - Vital Signs Vital signs: Vital Signs Temp 98.5 F 04/19/23 07:15 Pulse 58 L 04/19/23 09:31 Resp 18 04/19/23 07:15 BP 101/65 04/19/23 09:31 Pulse Ox 95 04/19/23 07:15 FiO2 Intake & Output 04/18/23 04/19/23 04/19/23 18:59 06:59 18:59 Intake Total 240 Balance 240 Intake: Oral 240 Other: Voiding Method Toilet # Voids 1 2 1 - Exam Gen: This is a 72-year-old female appears to be comfortable and in no acute distress VS: reviewed HEENT: Head is atraumatic, normocephalic. Pupils equal, round. Sclerae is anicteric. NECK: Supple. No JVD. LUNGS: Clear to auscultation. No wheezes or rhonchi. HEART: Regular rate and rhythm. No murmur. LIC site with dressing dry and intact ABDOMEN: Soft No tenderness. EXTREMITIES: No pedal edema. No calf tenderness. NEUROLOGICAL: Patient is awake, alert and oriented x3. - Labs CBC & Chem 7: 04/19/23 06:36 04/18/23 13:09 Labs: Abnormal Lab Results - Last 24 Hours (Table) 04/18/23 04/18/23 04/18/23 Range/Units 13:09 13:09 13:09 WBC 15.8 H (3.8-10.6) k/uL Immature Gran # (0.00-0.04) X 10*3/uL Neutrophils # 13.2 H (1.3-7.7) k/uL Monocytes # (0.20-1.00) X 10*3/uL PT (10.0-12.5) sec INR (<1.2) Sodium 136 L (137-145) mmol/L BUN 28 H (7-17) mg/dL Creatinine 1.65 H (0.52-1.04) mg/dL Glucose 180 H (74-99) mg/dL C-Reactive Protein 21.0 H (<1.0) mg/dL Procalcitonin (0.02-0.09) ng/mL Urine Protein (Negative) 04/18/23 04/18/23 04/19/23 Range/Units 13:09 21:00 06:36 WBC (3.8-10.6) k/uL Immature Gran # (0.00-0.04) X 10*3/uL Neutrophils # (1.3-7.7) k/uL Monocytes # (0.20-1.00) X 10*3/uL PT 14.6 H (10.0-12.5) sec INR 1.4 H (<1.2) Sodium (137-145) mmol/L BUN (7-17) mg/dL Creatinine (0.52-1.04) mg/dL Glucose (74-99) mg/dL C-Reactive Protein (<1.0) mg/dL Procalcitonin 0.97 H (0.02-0.09) ng/mL Urine Protein Trace H (Negative) 04/19/23 Range/Units 06:36 WBC 13.16 H (3.8-10.6) k/uL Immature Gran # 0.07 H (0.00-0.04) X 10*3/uL Neutrophils # 9.83 H (1.3-7.7) k/uL Monocytes # 1.16 H (0.20-1.00) X 10*3/uL PT (10.0-12.5) sec INR (<1.2) Sodium (137-145) mmol/L BUN (7-17) mg/dL Creatinine (0.52-1.04) mg/dL Glucose (74-99) mg/dL C-Reactive Protein (<1.0) mg/dL Procalcitonin (0.02-0.09) ng/mL Urine Protein (Negative) Microbiology - Last 24 Hours (Table) 04/17/23 19:45 Blood Culture - Preliminary Blood 04/17/23 20:00 Blood Culture - Preliminary Blood Assessment and Plan Assessment: Shortness of breath Hypertensive urgency Known history of coronary artery disease Ischemic cardiomyopathy with recent upgrade to dual-chamber ICD Persistent atrial fibrillation Mitral regurgitation moderate History of ventricular tachycardia status post AICD shock, maintained on amiodarone Plan: From cardiology's perspective medications were reviewed and she will continue the same. From our standpoint she is stable for discharge. She will follow-up in the office next week in the device clinic as well as for an appointment with Dr. Gale or Taylor his nurse practitioner. PSYCHIATRIC SECRETARY note has been reviewed, I agree with a documented findings and plan of care. Patient was seen and examined.
--- NOTE | 2023-04-19 12:24 | CDI ---
Documentation Clarification Form Date: 04/19/2023 11:52:07 AM From: Kaylene Goyal RN, CCDS Phone: [phone] Admit Date: 04/17/2023 06:56:00 PM Patient Name: Nicky Ballesteros Visit Number: [id number] Discharge Date: ATTENTION: The Clinical Documentation Specialists (CDI) and [facility] Coding Staff appreciate your assistance in clarifying documentation. Please respond to the clarification below the line at the bottom and electronically sign. The CDI & [facility] Coding staff will review the response and follow-up if needed. Please note: Queries are made part of the Legal Health Record. If you have any questions, please contact the author of this message via ITS. Dr. Zaid Blanco Your patient has the documented diagnosis of unspecified Acute exacerbation of congestive heart failure. Additional information regarding of type of CHF is requested. 04/18 Cardiology consult: Shortness of breath, Hypertensive urgency. Ischemic cardiomyopathy with recent upgrade to dual-chamber ICD. Persistent atrial fibrillation Mitral regurgitation moderate History/Risk Factors: Atrial Fibrillation, Hyperlipidemia, Hypertension, Myocardial Infarction ([place]), Pneumonia, Thyroid Disorder Clinical Indicators: 72-year-old female complaint of worsening shortness of breath. 04/17 VS 200/84 88 20 97%^ RA BNP: 1220 Echocardiogram Results: (last reported 04/16/23) Left ventricular ejection fraction is estimated at 45-50% Limited doppler study with mild mitral and tricuspid regurgitation. 04/17 CXR: Cardiomegaly and mild pulmonary vascular congestion. 04/19 CXR: exam right hemidiaphragm with patchy density right medial lung base may reflect atelectasis or infiltrate. Treatment: Cardiac/Telemetry monitoring Coreg 25 MG PO BID 04/17-04/19 Zetia 10 MG PO HS 04/17-04/18 Cozaar 50 MG PO 1600 04/18 In your professional opinion, can you please clarify the type of CHF if known? [ ] Acute Systolic Heart Failure (reduced EF) [ ] Chronic Systolic Heart Failure (reduced EF) [ x] Acute on Chronic Systolic Heart Failure (reduced EF) [ ] Acute Diastolic Heart Failure (preserved EF) [ ] Chronic Diastolic Heart Failure (preserved EF) [ ] Acute on Chronic Diastolic Heart Failure (preserved EF) [ ] Acute Systolic & Diastolic Heart Failure [ ] Chronic Systolic & Diastolic Heart Failure [ ] Acute on Chronic Heart Failure Systolic & Diastolic Heart Failure [ ] CHF Ruled out [ ] Other, please specify [ ] Unable to determine (Template Last Revised: April 2020) MTDD
--- NOTE | 2023-04-19 13:11 | P.PN ---
Subjective Progress Note Date: 04/19/23 Principal diagnosis: Reason for follow-up is leukocytosis possible pneumonia and multiple antibiotic allergies Patient is a 72-year-old female with a past medical history pertinent for atrial fibrillation hypertension hyperlipidemia ID, patient recently underwent upgrade of her pacemaker to dual-chamber ICD that was done on April 15, 2022, presenting back to the hospital with shortness of breath did have some cough and chest pain chest x-ray with basilar infiltrate concerning for pneumonia patient did have elevated white count procalcitonin was 0.97. On today's evaluation that is 04/19/2023, the patient is afebrile, patient is on room air, the patient denies chest pain shortness of breath did have a mild cough no sputum production, patient denies nausea no vomiting no abdominal pain and no diarrhea. Patient white count is down to 13.16 blood cultures are pending Objective - Vital Signs Vital signs: Vital Signs Temp 98.5 F 04/19/23 07:15 Pulse 58 L 04/19/23 09:31 Resp 18 04/19/23 07:15 BP 101/65 04/19/23 09:31 Pulse Ox 95 04/19/23 07:15 FiO2 Intake & Output 04/18/23 04/19/23 04/19/23 18:59 06:59 18:59 Intake Total 240 Balance 240 Intake: Oral 240 Other: Voiding Method Toilet # Voids 1 2 1 - Exam GENERAL DESCRIPTION: An elderly female up in bed in no distress RESPIRATORY SYSTEM: Unlabored breathing , decreased breath sounds at bases HEART: S1 S2 regular rate and rhythm , ABDOMEN: Soft , no tenderness EXTREMITIES: No edema feet - Labs CBC & Chem 7: 04/19/23 06:36 04/18/23 13:09 Labs: Abnormal Lab Results - Last 24 Hours (Table) 04/18/23 04/18/23 04/18/23 Range/Units 13:09 13:09 13:09 WBC 15.8 H (3.8-10.6) k/uL Immature Gran # (0.00-0.04) X 10*3/uL Neutrophils # 13.2 H (1.3-7.7) k/uL Monocytes # (0.20-1.00) X 10*3/uL PT (10.0-12.5) sec INR (<1.2) Sodium 136 L (137-145) mmol/L BUN 28 H (7-17) mg/dL Creatinine 1.65 H (0.52-1.04) mg/dL Glucose 180 H (74-99) mg/dL C-Reactive Protein 21.0 H (<1.0) mg/dL Procalcitonin (0.02-0.09) ng/mL Urine Protein (Negative) 04/18/23 04/18/23 04/19/23 Range/Units 13:09 21:00 06:36 WBC (3.8-10.6) k/uL Immature Gran # (0.00-0.04) X 10*3/uL Neutrophils # (1.3-7.7) k/uL Monocytes # (0.20-1.00) X 10*3/uL PT 14.6 H (10.0-12.5) sec INR 1.4 H (<1.2) Sodium (137-145) mmol/L BUN (7-17) mg/dL Creatinine (0.52-1.04) mg/dL Glucose (74-99) mg/dL C-Reactive Protein (<1.0) mg/dL Procalcitonin 0.97 H (0.02-0.09) ng/mL Urine Protein Trace H (Negative) 04/19/23 Range/Units 06:36 WBC 13.16 H (3.8-10.6) k/uL Immature Gran # 0.07 H (0.00-0.04) X 10*3/uL Neutrophils # 9.83 H (1.3-7.7) k/uL Monocytes # 1.16 H (0.20-1.00) X 10*3/uL PT (10.0-12.5) sec INR (<1.2) Sodium (137-145) mmol/L BUN (7-17) mg/dL Creatinine (0.52-1.04) mg/dL Glucose (74-99) mg/dL C-Reactive Protein (<1.0) mg/dL Procalcitonin (0.02-0.09) ng/mL Urine Protein (Negative) Microbiology - Last 24 Hours (Table) 04/17/23 19:45 Blood Culture - Preliminary Blood 04/17/23 20:00 Blood Culture - Preliminary Blood Assessment and Plan (1) Leukocytosis Current Visit: Yes Status: Acute Code(s): D72.829 - ELEVATED WHITE BLOOD CELL COUNT, UNSPECIFIED SNOMED Code(s): 470176321 (2) Allergy to multiple antibiotics Current Visit: Yes Status: Acute Code(s): Z88.1 - ALLERGY STATUS TO OTHER ANTIBIOTIC AGENTS SNOMED Code(s): 328639591 (3) Community acquired pneumonia Current Visit: Yes Status: Acute Code(s): J18.9 - PNEUMONIA, UNSPECIFIED ORGANISM SNOMED Code(s): 732045662 Plan: 1patient presented to hospital with increasing shortness of breath patient also have a cough recently underwent procedure to upgrade her pacemaker to dual- chamber ICD now with evidence of elevated white count low-grade fever and did have some infiltrate at the lung base with a question of possible pneumonia patient abdominal soft medical examination evidence of any cellulitis 2multiple antibiotic allergies 3patient did have elevated procalcitonin, sputum not collected 4-patient to continue with Rocephin 1 g daily in view of some clinical appointment and monitor clinical course closely Dictation was produced using [employer] dictation software. please excuse any grammatical, word or spelling errors. Time with Patient: Less than 30
[2023-04-19] MEDS ORDERED: WARFARIN 2 MG TAB PO ONE (18:00)
[2023-04-19] MEDS ORDERED: LEVOFLOXACIN 750 MG TAB PO SCH (21:00)
--- NOTE | 2023-04-28 08:47 | P.DS ---
Providers Date of admission: 04/17/23 18:56 Expected date of discharge: 04/19/23 Attending physician: Zaid Blanco Consults: 04/17/23 18:53 Consult Physician Routine Consulting Provider: Ramana Mcdonald Consult Reason/Comments: HTNemerg Do you want consulting provider notified?: Yes 04/17/23 20:22 Consult Physician Routine Consulting Provider: Qi Holley Consult Reason/Comments: antibiotics Do you want consulting provider notified?: Yes Primary care physician: Lucrecia Gallardo [facility] Course: diagnosis on discharge: Hypertensive emergency on presentation Acute exacerbation of congestive heart failure A right lower lobe infiltrate, possible pneumonia, patient has low-grade fever and leukocytosis on presentation Underlying history of ischemic cardiomyopathy History of ventricular tachycardia status post AICD placement Underlying history of coronary artery disease Underlying history of persistent atrial fibrillation Underlying history of hypertension Underlying history of hyperlipidemia Underlying history of hypothyroidism Underlying history of gout Hospital course: Nicky Ballesteros, is a 72-year-old female who presented to [facility] emergency room with a chief complaint of worsening shortness of breath. She was evaluated in the emergency room vital examination on presentation revealed a temperature of 99.5 pulse 88 respiration 20 blood pressure 200/84 pulse ox 97% on room air Laboratory data revealed a white blood count of 18.7 hemoglobin 15.2 platelet count 216 INR 1.6 BUN 20 creatinine 1.2 glucose 174 BNP was 1220 troponin 0.012 influenza a and B RSV and SARS were negative Testing in the emergency room revealed chest x-ray done in the emergency room revealed cardiomegaly and mild pulmonary vascular congestion, EKG revealed sinus rhythm with nonspecific T-wave abnormalities on 04/19/2023 patient is alert and oriented 3. Patient remains on IV Rocephin per infectious disease. Awaiting further recommendations from cardiology and infectious disease services. Current vital signs temp 98.5, heart rate 64, respiratory rate 18, blood pressure 101/65 with pulse ox of 95% on room air. This time patient reports improvement with shortness breath. Patient denies chest pain. Patient denies nausea vomiting or diarrhea. Patient denies any urinary burning or frequency Patient Condition at Discharge: Fair Plan - Discharge Summary Discharge Rx Participant: No New Discharge Prescriptions: New Levofloxacin [Levaquin] 500 mg PO DAILY 3 Days #3 tab Continue Aspirin [Adult Low Dose Aspirin EC] 81 mg PO BID Pravastatin Sodium [Pravachol] 20 mg PO HS Ezetimibe [Zetia] 10 mg PO HS Cholecalciferol [Vitamin D3 (125 Mcg = 5000 Iu)] 125 mcg PO HS Amiodarone [Cordarone] 100 mg PO Q48H carvediloL 25 mg PO BID #180 tablet Losartan Potassium 50 mg PO DAILY@1600 Losartan Potassium 100 mg PO DAILY Warfarin [Coumadin] 1.5 mg PO SUTUTHSA@2099 Magnesium Chloride [Slow-Mag] 64 mg PO HS Biotin 10 mg PO HS Warfarin [Coumadin] 1 mg PO MOWEFR@2100 Discharge Medication List Aspirin [Adult Low Dose Aspirin EC] 81 mg PO BID 01/22/17 [History] Ezetimibe [Zetia] 10 mg PO HS 01/22/17 [History] Pravastatin Sodium [Pravachol] 20 mg PO HS 01/22/17 [History] Biotin 10 mg PO HS 11/28/22 [History] Cholecalciferol [Vitamin D3 (125 Mcg = 5000 Iu)] 125 mcg PO HS 11/28/22 [History] Magnesium Chloride [Slow-Mag] 64 mg PO HS 11/28/22 [History] Amiodarone [Cordarone] 100 mg PO Q48H 02/20/23 [History] Warfarin [Coumadin] 1 mg PO MOWEFR@209902/20/23 [History] carvediloL 25 mg PO BID #180 tablet 04/15/23 [Rx] Losartan Potassium 50 mg PO DAILY@1600 04/17/23 [History] Losartan Potassium 100 mg PO DAILY 04/17/23 [History] Warfarin [Coumadin] 1.5 mg PO SUTUTHSA@209904/17/23 [History] Levofloxacin [Levaquin] 500 mg PO DAILY 3 Days #3 tab 04/19/23 [Rx] Follow up Appointment(s)/Referral(s): Adan Gale MD [STAFF PHYSICIAN] - 04/22/23 9:00 am Lucrecia Gallardo MD [Primary Care Provider] - 1-2 days (Office is closed at time of discharge. Please call for follow-up appointment.) Patient Instructions/Handouts: Pneumonia (DC) Discharge Disposition: HOME SELF-CARE
== END 2023-04-19 14:52 | disposition home or self-care (01) | DRG 291 ==
LOC: EC 16:24 → 4SSUR 18:56
PROVIDERS: ADMIT Internal Medicine; ATTEND Internal Medicine
DX: I11.0 Hypertensive heart disease with heart failure (principal); I50.23 Acute on chronic systolic (congestive) heart failure; J18.9 Pneumonia, unspecified organism; T82.855A Stenosis of coronary artery stent, initial encounter; I47.20 Ventricular tachycardia, unspecified; I48.19 Other persistent atrial fibrillation; I16.1 Hypertensive emergency; I25.82 Chronic total occlusion of coronary artery; E89.0 Postprocedural hypothyroidism; I08.1 Rheumatic disorders of both mitral and tricuspid valves; M10.9 Gout, unspecified; I25.5 Ischemic cardiomyopathy; I25.10 Atherosclerotic heart disease of native coronary artery without angina pectoris; E78.5 Hyperlipidemia, unspecified; Y71.1 Therapeutic (nonsurgical) and rehabilitative cardiovascular devices associated with adverse incidents; Z79.01 Long term (current) use of anticoagulants; Z95.810 Presence of automatic (implantable) cardiac defibrillator; Z87.891 Personal history of nicotine dependence; Z79.82 Long term (current) use of aspirin; I25.2 Old myocardial infarction; Z95.5 Presence of coronary angioplasty implant and graft; Z11.52 Encounter for screening for COVID-19; Z79.899 Other long term (current) drug therapy; Z91.02 Food additives allergy status; Z88.8 Allergy status to other drugs, medicaments and biological substances; Z88.2 Allergy status to sulfonamides; Z91.048 Other nonmedicinal substance allergy status; Z88.0 Allergy status to penicillin; Z88.1 Allergy status to other antibiotic agents; Z90.89 Acquired absence of other organs
CPT/HCPCS: 36415; 71045; 71046; 80053; 81003; 83735; 83880; 84145; 84484; 85025; 85610; 85730; 86140; 87040; 87636; 93005; 94640; 96365; 99291

== ENCOUNTER 2023-05-01 13:24 | Emergency (ER) | payer MEDICARE ==
--- NOTE | 2023-05-01 14:17 | ED ---
General Adult HPI - General Chief complaint: Recheck/Abnormal Lab/Rx Stated complaint: Needs CAT scan Source: patient Mode of arrival: ambulatory Limitations: no limitations - History of Present Illness Initial comments: Patient is a 72-year-old female who has a history of coronary artery disease and pacemaker placement and multiple comorbidities who presents emergency room for a CAT scan of the chest. Patient was seen by her PCPs office this morning and sent for outpatient blood work and CAT scan. That there was an issue with K she is sent here for further management. Patient is at the PCPs office and sent for head CT for ongoing chest pain and shortness of breath for the last 2 weeks since having her pacemaker replaced by Dr. Galeana. She states that she was awake during the procedure and felt as though something specific And that his. Patient continues to have swelling and ecchymosis along the left side of the chest at the site of the pacemaker. States The pain is now worse on the right side of the chest and worse with movement and palpation. Patient was seen for ongoing pain and shortness of breath last week after she had been discharged from the procedure. She was diagnosed with pneumonia and admitted to the hospital for multiple days for antibiotics. Patient states she had no symptoms of penumonia at the time. she is concerned she is having a post op complication. She denies any worsening swelling or pain to lower extemities Denies any hem optysis. Denies a cough congestion or fever. she is on coumadin. - Related Data Home Medications Medication Instructions Recorded Confirmed Aspirin [Adult Low Dose Aspirin EC] 81 mg PO BID 01/22/17 05/01/23 Ezetimibe [Zetia] 10 mg PO HS 01/22/17 05/01/23 Pravastatin Sodium [Pravachol] 20 mg PO HS 01/22/17 05/01/23 Biotin 10 mg PO HS 11/28/22 05/01/23 Cholecalciferol [Vitamin D3 (125 125 mcg PO HS 11/28/22 05/01/23 Mcg = 5000 Iu)] Magnesium Chloride [Slow-Mag] 64 mg PO HS 11/28/22 05/01/23 Amiodarone [Cordarone] 100 mg PO Q48H 02/20/23 05/01/23 Warfarin [Coumadin] 1 mg PO MOWEFR@2100 02/20/23 05/01/23 Losartan Potassium 50 mg PO DAILY@1600 04/17/23 05/01/23 Losartan Potassium 100 mg PO DAILY 04/17/23 05/01/23 Warfarin [Coumadin] 1.5 mg PO SUTUTHSA@2100 04/17/23 05/01/23 Previous Rx's Medication Instructions Recorded carvediloL 25 mg PO BID #180 tablet 04/15/23 Allergies Allergy/AdvReac Type Severity Reaction Status Date / Time aspartame Allergy Severe hives, Verified 05/01/23 18:56 [From Nutrasweet Aspartame] tongue swelling hydralazine Allergy Severe Anaphylaxis Verified 05/01/23 18:56 Sulfa (Sulfonamide Allergy Severe "bleeding Verified 05/01/23 18:56 Antibiotics) in eyes" nickel Allergy Rash/Hives Verified 05/01/23 18:56 Penicillins Allergy Rash/Hives/ Verified 05/01/23 18:56 itching Tetracyclines Allergy rapid Verified 05/01/23 18:56 breathing ramipril [From Altace] AdvReac Cough Verified 05/01/23 18:56 valsartan AdvReac dizzy, Verified 05/01/23 18:56 confused Review of Systems ROS Statement: Those systems with pertinent positive or pertinent negative responses have been documented in the HPI. ROS Other: All systems not noted in ROS Statement are negative. Past Medical History Past Medical History: Hyperlipidemia, Hypertension, Myocardial Infarction ([place]), Thyroid Disorder Additional Past Medical History / Comment(s): SEE DR GALEANA H&P, STATES SILENT "[place] or heat stroke", RADIATED THYROID for nodules, hx migraines, SOB, gout, Last Myocardial Infarction Date:: 1997 History of Any Multi-Drug Resistant Organisms: None Reported Past Surgical History: AICD, Heart Catheterization With Stent, Pacemaker Additional Past Surgical History / Comment(s): STATES at least 7 STENTS, [employer] AICD, left upper extremity,venogram, cinefluoroscopy of AICD lead, thyroidectomy Past Anesthesia/Blood Transfusion Reactions: No Reported Reaction Date of Last Stent Placement:: 2014 Type of Cardiac Device: AICD Device Placement Date:: 01/29/17 Past Psychological History: No Psychological Hx Reported Smoking Status: Former smoker Past Alcohol Use History: None Reported Past Drug Use History: None Reported - Past Family History Sister(s) Family Medical History: Cancer Additional Family Medical History / Comment(s): Pancreatic General Exam Limitations: no limitations General appearance: alert, in no apparent distress Head exam: Present: atraumatic Eye exam: Present: normal appearance, PERRL ENT exam: Present: normal exam Neck exam: Present: full ROM Respiratory exam: Present: normal lung sounds bilaterally. Absent: respiratory distress, wheezes Cardiovascular Exam: Present: regular rate, other (pain, swelling and ecchymosis over the left anterior chest wall and pacemaker placement. no erythema or warmth. no abscess, pain with palpation right anterior chest wall, no ecchymosis or rash, no erythema) GI/Abdominal exam: Present: soft. Absent: tenderness Extremities exam: Present: full ROM Back exam: Present: full ROM Neurological exam: Present: alert, oriented X3, CN II-XII intact Psychiatric exam: Present: normal affect, normal mood Skin exam: Present: warm, dry Course Vital Signs 05/01/23 05/01/23 05/01/23 13:38 16:15 17:51 Temperature 97.7 F Pulse Rate 64 63 71 Respiratory 18 18 18 Rate Blood Pressure 141/65 156/77 175/78 O2 Sat by Pulse 98 98 95 Oximetry 05/01/23 18:23 Temperature 98.1 F Pulse Rate 69 Respiratory 16 Rate Blood Pressure 143/61 O2 Sat by Pulse 96 Oximetry - Reevaluation(s) Reevaluation #1: 05/01/23 8931 the patient is well appearing in the ed. she is in no distress. EKG shows no acute findings. Troponin is negative. The patient was pre-hydrated for CT angios per recommendation by CT department. The CT angios was negative for any pulmonary embolism. There is some swelling around the pacemaker site that could represent an early abscess however there is a low suspicion as there is no erythema or warmth. No significantly elevated leukocytosis at this time. I offered admission for quicker follow-up with continuous conveyor screen drier in the morning. Patient adamantly refuses to be readmitted and that she wants to go home. I did discussed the importance of following up with the surgeon as he will need to be the one that further evaluate possible complications from the pacemaker placement and surgery and possible abscess formation. I did discuss signs return to the emergency room including but not limited to any worsening pain to vomit a fever, development of redness or warmth to the chest wall or new concerning symptoms. She understands and agrees to this plan. Patient was very unhappy a cannot give her specific reasons of what she felt in her surgery that she believes caused her pain and shortness breath. Patient's symptoms are covenant disposition were fully discussed with attending ED physician Dr. Guerrier today. EKG Findings - EKG Comments: EKG Findings:: EKG is sinus rhythm with first-degree AV block, rate of 70 bpm, low QRS voltage, nonspecific anterior lead changes Medical Decision Making - Medical Decision Making Was pt. sent in by a medical professional or institution (, PA, BUSINESS OPERATIONS DIRECTOR, urgent care, hospital, or longterm...) When possible be specific @ -[No] Did you speak to anyone other than the patient for history (EMS, parent, family, police, friend...)? What history was obtained from this source @ -[No] Did you review nursing and triage notes (agree or disagree)? Why? @ -[I reviewed and agree with nursing and triage notes] Were old charts reviewed (outside hosp., previous admission, EMS record, old EKG, old radiological studies, urgent care reports/EKG's, longterm records)? Report findings @ -[yes old charts were reviewed] Differential Diagnosis (chest pain, altered mental status, abdominal pain women, abdominal pain men, vaginal bleeding, weakness, fever, dyspnea, syncope, headache, dizziness, GI bleed, back pain, seizure, CVA, palpatations, mental health, musculoskeletal)? @ -[Pulmonary embolism, pleurisy, costochondritis, postop pain, postop infection, pneumonia, [place], angina, CHF] EKG interpreted by me (3pts min.). @ -EKG is sinus rhythm with first-degree AV block, rate of 70 bpm, low QRS voltage, nonspecific anterior lead changes X-rays interpreted by me (1pt min.). @ -[None done] CT interpreted by me (1pt min.). @ -CT is negative for pulmonary embolus. There is a small right-sided pleural effusion. There is some swelling around the pacemaker insertion site that could represent inflammation versus infection. U/S interpreted by me (1pt. min.). @ -[None done] What testing was considered but not performed or refused? (CT, X-rays, U/S, labs)? Why? @ -[None] What meds were considered but not given or refused? Why? @ -[None] Did you discuss the management of the patient with other professionals (pro fessionals i.e. , PA, BUSINESS OPERATIONS DIRECTOR, lab, RT, psych nurse, social services director, plant utilities engineer, teacher, landing signal officer, returned case inspector)? Give summary @ -[No] Was smoking cessation discussed for >3mins.? @ -[No] Was critical care preformed (if so, how long)? @ -[No] Were there social determinants of health that impacted care today? How? (Homelessness, low income, unemployed, alcoholism, drug addiction, mullins sportation, low edu. Level, literacy, decrease access to med. care, chcf, rehab)? @ -[No] Was there de-escalation of care discussed even if they declined (Discuss DNR or withdrawal of care, Hospice)? DNR status @ -[No] What co-morbidities impacted this encounter? (DM, HTN, Smoking, COPD, CAD, Cancer, CVA, ARF, Chemo, Hep., AIDS, mental health diagnosis, sleep apnea, morbid obesity)? @ -Hypertension, hyper lipidemia, CAD, pacemaker placement, recent surgery Was patient admitted / discharged? Hospital course, mention meds given and route, prescriptions, significant lab abnormalities, going to OR and other pertinent info. @ -Offered admission for follow-up evaluation with the surgeon however patient adamantly refuses to be readmitted and states she'll follow up as an outpatient. She does understand signs return to the emergency room for worsening symptoms or complications. I discussed patient's symptoms are And disposition with attending ED physician Dr. Guerrier today. Undiagnosed new problem with uncertain prognosis? @ -[No] Drug Therapy requiring intensive monitoring for toxicity (Heparin, Nitro, Insulin, Cardizem)? @ -[No] Were any procedures done? @ -[No] Diagnosis/symptom? @ Chest pain, postop pain, postop complication, dyspnea Acute, or Chronic, or Acute on Chronic? @ -[acute Uncomplicated (without systemic symptoms) or Complicated (systemic symptoms)? @ -complicated Side effects of treatment? @ -[No] Exacerbation, Progression, or Severe Exacerbation? @ -[exacerbation Poses a threat to life or bodily function? How? (Chest pain, [place], [place], pneumonia, PE, COPD, DKA, ARF, appy, cholecystitis, CVA, Diverticulitis, Homicidal, Suicidal, threat to staff... and all critical care pts) @ -[No] - Lab Data Result diagrams: 05/01/23 14:34 05/01/23 14:34 Lab Results 05/01/23 05/01/23 05/01/23 Range/Units 14:34 14:34 14:34 WBC 14.1 H (3.8-10.6) k/uL RBC 4.32 (3.80-5.40) m/uL Hgb 13.0 (11.4-16.0) gm/dL Hct 39.9 (34.0-46.0) % MCV 92.4 (80.0-100.0) fL MCH 30.0 (25.0-35.0) pg MCHC 32.5 (31.0-37.0) g/dL RDW 12.9 (11.5-15.5) % Plt Count 384 (150-450) k/uL MPV 7.3 Neutrophils % 82 % Lymphocytes % 10 % Monocytes % 6 % Eosinophils % 1 % Basophils % 1 % Neutrophils # 11.5 H (1.3-7.7) k/uL Lymphocytes # 1.4 (1.0-4.8) k/uL Monocytes # 0.9 (0-1.0) k/uL Eosinophils # 0.2 (0-0.7) k/uL Basophils # 0.1 (0-0.2) k/uL Sodium 137 (137-145) mmol/L Potassium 4.7 (3.5-5.1) mmol/L Chloride 109 H (98-107) mmol/L Carbon Dioxide 23 (22-30) mmol/L Anion Gap 5 mmol/L BUN 35 H (7-17) mg/dL Creatinine 1.45 H (0.52-1.04) mg/dL Est GFR (CKD-EPI)AfAm 42 (>60 ml/min/1.73 sqM) Est GFR (CKD-EPI)NonAf 36 (>60 ml/min/1.73 sqM) Glucose 112 H (74-99) mg/dL Calcium 9.8 (8.4-10.2) mg/dL Troponin I <0.012 (0.000-0.034) ng/mL NT-Pro-B Natriuret Pep 766 pg/mL - EKG Data -: EKG Interpreted by Me - Radiology Data Radiology results: report reviewed, image reviewed Disposition Clinical Impression: Post-op pain, Post-operative complication, Costochondritis, Pleurisy Disposition: HOME SELF-CARE Condition: Fair Is patient prescribed a controlled substance at d/c from ED?: No If prescribed controlled substance>3 days was MAPS reviewed?: No Referrals: Lucrecia Gallardo MD [Primary Care Provider] - 1-2 days Adan Galeana MD [STAFF PHYSICIAN] - 1-2 days Time of Disposition: 19:06
[2023-05-01 16:13] LABS: Basophils # (A) 0.1 k/uL (0-0.2); Basophils % (A) 1 %; Eosinophils # (A) 0.2 k/uL (0-0.7); Eosinophils % (A) 1 %; HCT 39.9 % (34.0-46.0); Lymphocytes # (A) 1.4 k/uL (1.0-4.8); Lymphocytes % (A) 10 %; MCHC 32.5 g/dL (31.0-37.0); MCV 92.4 fL (80.0-100.0); Mean Platelet Volume 7.3; Monocytes # (A) 0.9 k/uL (0-1.0); Monocytes % (A) 6 %; Neutrophils # (A) 11.5 k/uL (1.3-7.7); Neutrophils % (A) 82 %; Platelet Count 384 k/uL (150-450); RBC 4.32 m/uL (3.80-5.40); RDW 12.9 % (11.5-15.5); WBC 14.1 k/uL (3.8-10.6)
[2023-05-01] MEDS: SODIUM CHLORIDE 0.9% 1,000 ML IV STA (16:18)
[2023-05-01 16:28] LABS: African American GFR (CKD) 42 (>60 ml/min/1.73 sqM); Anion Gap 5 mmol/L; Blood Urea Nitrogen 35 mg/dL (7-17); Calcium 9.8 mg/dL (8.4-10.2); Carbon Dioxide 23 mmol/L (22-30); Chloride 109 mmol/L (98-107); Glucose 112 mg/dL (74-99); Non-African American GFR(CKD) 36 (>60 ml/min/1.73 sqM); Potassium 4.7 mmol/L (3.5-5.1); Sodium 137 mmol/L (137-145)
[2023-05-01 16:37] LABS: NT-Pro-B-Type Natriuretic Pept 766 pg/mL
--- NOTE | 2023-05-01 17:58 | CT ---
EXAMINATION TYPE: CT angio chest CT DLP: 693.9 mGycm, Automated exposure control for dose reduction was used. DATE OF EXAM: 05/01/2023 5:29 PM COMPARISON: Chest radiograph from 04/19/2023. CLINICAL INDICATION:Female, 72 years old with history of chest pain, shortness for breath, recent malena amanda; SOB, elevated d-dimer. pacemaker placed apr 15. TECHNIQUE/CONTRAST: CTA scan of the thorax is performed with IV Contrast, patient injected with 69ml mL of Isovue 370, SC P images are created and reviewed these are created on a separate workstation.. FINDINGS: Pulmonary Artery: There is no evidence for a filling defect within the pulmonary vasculature to sugge st acute pulmonary embolism. The pulmonary artery is of normal size. Lungs/Pleura: Moderate right pleural effusion. There is associated atelectasis. No left pleural effus ion focal consolidation or pneumothorax. Airway: Large airways are patent. Heart: No heart is enlarged for size. Cardiac conduction leads terminating in the right ventricle. At herosclerosis of the coronary arteries. Vasculature: No evidence of aortic aneurysm. Mediastinum: No gross evidence of adenopathy. Musculoskeletal: No acute osseous abnormalities Soft Tissues: Left chest wall pacemaker with suspected fluid collection around the pacemaker measurin g 81 x 27 mm. There is subcutaneous gas in this region. Cardiac conduction leads terminates in the ri ght ventricle. Lower neck: No significant findings. Upper Abdomen: No significant findings. IMPRESSION: 1. No evidence of pulmonary embolism. 2. Pacemaker in the left chest wall with organizing fluid collection possibly representing abscess im mediately superficial to the pacemaker. Clinical correlation recommended. Consider ultrasound imaging . 3. Moderate right pleural effusion with associated atelectasis. Follow up recommendations for incidental pulmonary nodules, if there are any, are per Fleischner?s [employer] or [employer]. [email or web address]/[email or web address]?lang=us
[2023-05-01 18:34] VITALS: BP 143/61; PULSE 69; RESP 16; TEMP 98.1
== END 2023-05-01 19:21 | disposition home or self-care (01) ==
LOC: EC 13:24
DX: G89.18 Other acute postprocedural pain (principal); M94.0 Chondrocostal junction syndrome [Tietze]; J90 Pleural effusion, not elsewhere classified; I10 Essential (primary) hypertension; I44.0 Atrioventricular block, first degree; I25.10 Atherosclerotic heart disease of native coronary artery without angina pectoris; I25.2 Old myocardial infarction; E78.5 Hyperlipidemia, unspecified; Z87.891 Personal history of nicotine dependence; Z79.82 Long term (current) use of aspirin; Z79.01 Long term (current) use of anticoagulants; Z79.899 Other long term (current) drug therapy; Z88.2 Allergy status to sulfonamides; Z88.0 Allergy status to penicillin; Z88.8 Allergy status to other drugs, medicaments and biological substances
CPT/HCPCS: 36415; 93005; 83880; 80048; 84484; 85025; 71275; 99284; 96360; 96361 ×2; Q9967

== ENCOUNTER → 2023-05-01 | Outpatient (CLI) | payer MEDICARE | END | disposition home or self-care (01) | LOC: RADCTMAIN 12:46 | PROVIDERS: ATTEND Family Medicine | DX: Z53.9 Procedure and treatment not carried out, unspecified reason (principal) ==

== ENCOUNTER → 2023-05-01 | Outpatient (CLI) | payer MEDICARE ==
[2023-05-01 12:53] LABS: African American GFR (CKD) 40 (>60 ml/min/1.73 sqM); Blood Urea Nitrogen 35 mg/dL (7-17); Non-African American GFR(CKD) 35 (>60 ml/min/1.73 sqM)
[2023-05-01 12:54] LABS: Basophils # (A) 0.1 k/uL (0-0.2); Basophils % (A) 0 %; Eosinophils # (A) 0.1 k/uL (0-0.7); Eosinophils % (A) 1 %; HCT 39.8 % (34.0-46.0); HGB 12.8 gm/dL (11.4-16.0); Lymphocytes % (A) 8 %; MCHC 32.1 g/dL (31.0-37.0); MCV 93.6 fL (80.0-100.0); Mean Platelet Volume 7.1; Monocytes # (A) 0.7 k/uL (0-1.0); Monocytes % (A) 5 %; Neutrophils # (A) 11.2 k/uL (1.3-7.7); Neutrophils % (A) 85 %; RBC 4.26 m/uL (3.80-5.40); RDW 12.9 % (11.5-15.5); WBC 13.2 k/uL (3.8-10.6)
[2023-05-01 12:58] LABS: Platelet Count 410 k/uL (150-450)
== END | disposition home or self-care (01) ==
LOC: LABWHC1 12:21
PROVIDERS: ATTEND Nurse Practitioner Family
DX: J15.9 Unspecified bacterial pneumonia (principal); R06.02 Shortness of breath
CPT/HCPCS: 36415; 82565; 84520; 85025; 85379

== ENCOUNTER → 2023-05-10 | Outpatient (CLI) | payer MEDICARE ==
--- NOTE | 2023-05-10 17:26 | US ---
EXAMINATION TYPE: US chest DATE OF EXAM: 05/10/2023 COMPARISON: NONE CLINICAL INDICATION: Female, 72 years old with history of R parapneumonic effusion J690; SOB, right s ided pleural effusion TECHNIQUE: Targeted ultrasound of the posterior lower Right EXAM MEASUREMENTS: Right Pleural Effusion pocket size: 11.5 cm Right skin surface to fluid distance: 4.6cm Right side marked for possible thoracentesis outside the dept. Pulmonologists are able to review the images in the patient?s EMR. IMPRESSIONS: 1. Right pleural effusion
== END | disposition home or self-care (01) ==
LOC: RADUSWWP 10:36
PROVIDERS: ATTEND Internal Medicine Clinical Cardiac Electrophysiology
DX: J90 Pleural effusion, not elsewhere classified (principal)
CPT/HCPCS: 76604

== ENCOUNTER → 2023-05-14 | Day surgery (SDC) | payer MEDICARE ==
[~2023-05-14] MED LIST changes: -CLINDAMYCIN 600 MG in SODIUM CHLORIDE 0.9% 250 ML IRRIGATION PRN; +SODIUM CHLORIDE 0.9% 500 ML 500 ML in EMPTY BAG 1 BAG IV PRN
[2023-05-14] MEDS: ATROPINE SULFATE 0.1 MG/ML 10ML SYRINGE IM ONE (11:38)
[2023-05-14 12:05] LABS: Prothrombin Time 20.3 sec (10.0-12.5)
[2023-05-14 12:06] VITALS: BP 166/88; PULSE 55; RESP 18; TEMP 97.5
== END ==
LOC: PROCWHC3 11:23
PROVIDERS: ATTEND Internal Medicine Critical Care Medicine
DX: J90 Pleural effusion, not elsewhere classified (principal)
CPT/HCPCS: 85610; 96372; 36415; J0461

== ENCOUNTER → 2023-05-16 | Day surgery (SDC) | payer MEDICARE ==
[2023-05-16] MEDS: ATROPINE SULFATE 0.4 MG/ML 1 ML VIAL IM STA (11:36)
[2023-05-16 11:54] VITALS: TEMP 98.1
--- NOTE | 2023-05-16 12:36 | XR ---
EXAMINATION TYPE: XR chest 1V portable DATE OF EXAM: 05/16/2023 HISTORY: POST RIGHT THORACENTES-PLEURAL EFFUSION COMPARISON: 04/19/2023 TECHNIQUE: Single view of the chest is submitted. FINDINGS: Demonstrated are scattered senescent parenchymal change. No evidence for right-sided pneumothorax. Right basilar atelectasis and small effusion persists. The heart is stable. Hilar and mediastinal structures are within normal limits. Degenerative changes are seen of the dorsal spine. IMPRESSION: 1. No evidence for right-sided pneumothorax. Right basilar atelectasis and small effusion persists.
[2023-05-16 13:59] VITALS: BP 153/89; PULSE 72; RESP 16
--- NOTE | 2023-05-16 18:52 | OP ---
OPERATIVE REPORT DATE OF SERVICE : PROCEDURE: Right-sided thoracentesis. PREOPERATIVE DIAGNOSIS: Right pleural effusion. POSTOPERATIVE DIAGNOSIS: Right pleural effusion. There was informed consent and universal timeout. The posterior chest was marked by ultrasound. The patient's procedure took place in [facility] room 3rd floor. INDICATION: Pleural effusion. DESCRIPTION OF PROCEDURE: A time-out was completed verifying correct patient, procedure, site, positioning , and implant (s) or special equipment if applicable. Ultrasound guidance was/was not used and appropriate fluid pocket was identified and marked. Patient was positioned, prepped and draped in usual sterile fashion. Lidocaine was used to anesthetize the area. A Thoracentesis catheter was introduced into the pleural space and fluid was removed. Blood loss was none. A chest x-ray was ordered to evaluate for pneumothorax. Total Fluid Removed: 1.3 L of bloody fluid was removed from the right pleural space. Color of Fluid: Fluid was sent for appropriate laboratory tests. The patient tolerated the procedure well. There were no immediate complications. The fluid will be sent for analysis. A chest x-ray will be ordered to rule out pneumothorax. The fluid will be sent for chemistry, cytology, and microbiology. Again no immediate complications and the patient did feel significant relief, once the fluid was removed. There was no immediate complication. MMODL / IJN: [id number] /
[2023-05-17 05:01] LABS: Glucose, BF Source Pleural fluid; Glucose, Body Fluid 114 mg/dL; LDH, Body Fluid Source Pleural fluid; T. Protein, Body Fluid Source Pleural fluid; Total Protein, Body Fluid >3600 mg/dL
[2023-05-17 05:15] LABS: Appearance,BF Grossly Bloody (Clear)
== END ==
LOC: PROCWHC3 11:01
PROVIDERS: ATTEND Internal Medicine Critical Care Medicine
DX: J90 Pleural effusion, not elsewhere classified (principal)
CPT/HCPCS: 88108; 88305; 89050; 87070; 87205; 87075; 87116; 87206; 82945; 83615; 84157; 71045; 96372; 32554; J0461

== ENCOUNTER → 2023-07-02 | Outpatient (CLI) | payer MEDICARE ==
--- NOTE | 2023-07-08 20:00 | CT ---
EXAMINATION TYPE: CT chest wo con CT DLP: 498.2 mGycm, Automated exposure control for dose reduction was used. DATE OF EXAM: 07/02/2023 2:01 PM COMPARISON: CT angiogram chest 05/01/2023 CLINICAL INDICATION:Female, 72 years old with history of J90 PLEURAL EFFUSION, NOT ELSEWHERE CLASSIFI ED; PHH, h/o pleural effusion since April 2023 SOB TECHNIQUE: Multiple axial images were obtained through the chest. Sagittal and coronal reformats were created for review. Contrast used: mL of (None if empty) Oral contrast used: (None if empty) FINDINGS: LUNGS/ PLEURA: There is associated atelectasis/consolidation adjacent to moderate right pleural effus ion AIRWAY: Patent and unremarkable. HEART: Size within normal limits. MEDIASTINUM: No gross evidence of adenopathy. VASCULATURE: No aortic aneurysm. MUSCULOSKELETAL: No acute osseous abnormalities SOFT TISSUES/LYMPH NODES: Unremarkable. LOWER NECK: No significant findings. UPPER ABDOMEN: Several moderate-sized gallstones. No evidence of acute cholecystitis. IMPRESSION: There is associated atelectasis/consolidation adjacent to moderate right pleural effusion Cholelithiasis without evidence of cholecystitis. Trace left pleural effusion.212
== END | disposition home or self-care (01) ==
LOC: RADCTMAIN 13:34
PROVIDERS: ATTEND Internal Medicine Clinical Cardiac Electrophysiology
DX: K80.20 Calculus of gallbladder without cholecystitis without obstruction (principal); J90 Pleural effusion, not elsewhere classified
CPT/HCPCS: 71250

== ENCOUNTER 2023-07-09 07:30 | Day surgery (SDC) | payer MEDICARE ==
[~2023-07-09 07:30] MED LIST changes: +SODIUM CHLORIDE 0.9% 1,000 ML IV SCH; -SODIUM CHLORIDE 0.9% 500 ML 500 ML in EMPTY BAG 1 BAG IV PRN
[2023-07-09 09:18] LABS: INR 1.5 (<1.2); Prothrombin Time 15.8 sec (10.0-12.5)
--- NOTE | 2023-07-09 10:11 | CT ---
EXAMINATION TYPE: CT chest wo con CT DLP: 787 mGycm, Automated exposure control for dose reduction was used. DATE OF EXAM: 07/09/2023 9:50 AM COMPARISON: 07/02/2023 CLINICAL INDICATION:Female, 72 years old with history of R/O Bleeding; PHH, r/o bleeding post venogra m TECHNIQUE: Multiple axial images were obtained through the chest. Sagittal and coronal reformats were created for review. Contrast used: mL of (None if empty) Oral contrast used: (None if empty) FINDINGS: LUNGS/ PLEURA: Moderate dense trace left pleural effusions which are simple fluid density. No evidenc e for hematoma. Associated atelectasis changes along the right pleural effusion. No evidence for foca l consolidation, pneumothorax or pleural effusion. AIRWAY: Patent and unremarkable. HEART: Septations along the left ventricle wall near the apex compatible with prior injury. Thickenin g of the interventricular septum. Severe atherosclerosis of the coronary arteries. Mild Tammie artery calcified changes. Aortic cardiac conduction device with leads terminating in the right ventricle an d right atrium. MEDIASTINUM: No gross evidence of adenopathy. VASCULATURE: Atherosclerotic calcifications are present throughout the aorta and its branches. MUSCULOSKELETAL: Moderate disc degeneration changes are present throughout the thoracolumbar spine. SOFT TISSUES/LYMPH NODES: Unremarkable. LOWER NECK: No significant findings. UPPER ABDOMEN: Multiple gallstones in the gallbladder neck. Right and bilateral nonobstructing renal calculi right renal cortical cyst. IMPRESSION: 1. No evidence for hematoma/hemorrhage. 2. Simple appearing bilateral pleural effusions, moderate right and trace left. 3. Severe coronary artery atherosclerosis. 4. Evidence of prior myocardial infarction with calcifications along the left ventricular wall near the apex and thinning of the interventricular septum.. Follow up recommendations for incidental pulmonary nodules, if there are any, are per [employer] or [employer]. [email or web address].org/articles/lcsgsaguws-[email or web address]?lang=us
--- NOTE | 2023-07-09 11:35 | P.EPPROC ---
- EP Procedure Note Electrophysiology Procedure Note: Diagnosis Left-sided implant in April with upgrade to a dual chamber ICD, implantation of new right atrial lead Slow delayed hemothorax, delayed symptoms Recurrent right hemothorax after thoracentesis in May of this year No clear-cut bleeding source after reviewing all CT scans with 2 different radiologists Discussed with Dr. Alexandre in radiology Plan Left and right upper extremity venography to look for any dye leak or staining Followed by noncontrast CT of the chest to look for any dye hang up in the SVC /azygous venous region Right upper extremity venogram performed Patent SVC without any dye leak or staining This was followed by a left upper extremity venogram Patent innominate and SVC veins Dye entered the right atrium No obvious dye leak or dye hang up noted Plan proceed with noncontrast CT of the chest Update Noncontrast CT of the chest was reviewed with Dr. Alexandre subsequently Prior CT scans were reviewed No evidence for dye hang up or dye leak into the mediastinum Moderate to large fluid in the hemithorax on the right side
== END 2023-07-09 10:50 | disposition home or self-care (01) ==
LOC: CATHEP 07:30
PROVIDERS: ATTEND Internal Medicine Clinical Cardiac Electrophysiology
DX: J94.2 Hemothorax (principal); I87.1 Compression of vein; J90 Pleural effusion, not elsewhere classified; I25.10 Atherosclerotic heart disease of native coronary artery without angina pectoris; I25.2 Old myocardial infarction; Z79.899 Other long term (current) drug therapy
CPT/HCPCS: 36005; 71250; 75822; 85610

== ENCOUNTER → 2023-07-15 | Outpatient (CLI) | payer MEDICARE ==
--- NOTE | 2023-07-15 11:01 | US ---
EXAMINATION TYPE: US chest DATE OF EXAM: 07/15/2023 COMPARISON: NONE CLINICAL INDICATION: Female, 72 years old with history of J90 PLEURAL EFFUSION; Right Pleural effusio n TECHNIQUE: Targeted ultrasound of the posterior lower right hemithorax EXAM MEASUREMENTS: Right Pleural Effusion pocket size: 10.6 cm Right skin surface to fluid distance: 3.4 cm Trace fluid noted at left chest Right side marked for possible thoracentesis outside the dept. Pulmonologists are able to review the images in the patient?s EMR. IMPRESSIONS: 1. Small right pleural effusion marked for thoracentesis. 2. Trace left pleural effusion.
== END | disposition home or self-care (01) ==
LOC: RADUSWWP 10:22
PROVIDERS: ATTEND Internal Medicine Critical Care Medicine
DX: J90 Pleural effusion, not elsewhere classified (principal)
CPT/HCPCS: 76604

== ENCOUNTER → 2023-07-15 | Day surgery (SDC) | payer MEDICARE ==
[2023-07-15] MEDS: ATROPINE SULFATE 0.4 MG/ML 1 ML VIAL IM STA (11:16)
[2023-07-15 11:20] VITALS: RESP 18
[2023-07-15 11:54] LABS: INR 1.1 (<1.2); Prothrombin Time 12.2 sec (10.0-12.5)
[2023-07-15 12:05] VITALS: TEMP 97.6
[2023-07-15 12:52] VITALS: BP 166/84; PULSE 57
--- NOTE | 2023-07-15 13:11 | PCN ---
PROCEDURE NOTE PROCEDURE PERFORMED: Right-sided thoracentesis. PREOPERATIVE DIAGNOSIS: Right pleural effusion. POSTOPERATIVE DIAGNOSIS: Right pleural effusion. TIE SAWYER: Dr. Chow. The patient's procedure was done in the [facility] floor #3. There was informed consent. There was universal timeout. The patient's posterior chest was marked by ultrasound. A time-out was completed verifying correct patient, procedure, site, positioning , and implant (s) or special equipment if applicable. Ultrasound guidance was/was not used and appropriate fluid pocket was identified and marked. Patient was positioned, prepped and draped in usual sterile fashion. Lidocaine was used to anesthetize the area. A Thoracentesis catheter was introduced into the pleural space and fluid was removed. Blood loss was none. A chest x-ray was ordered to evaluate for pneumothorax. We removed roughly 825 mL of dark yellow fluid from the right pleural space. The patient tolerated the procedure well. There was no immediate complication. The fluid will be sent for analysis. A chest x-ray was ordered to rule out pneumothorax. MMODL / IJN: [id number] /
--- NOTE | 2023-07-15 13:17 | XR ---
EXAMINATION TYPE: XR chest 1V portable DATE OF EXAM: 07/15/2023 12:44 PM CLINICAL INDICATION:Female, 72 years old with history of POST RIGHT THORACENTESIS; H COMPARISON: Chest radiographs from 05/16/2023 TECHNIQUE: XR chest 1V portable Frontal view of the chest. FINDINGS: Lungs/Pleura: There remains small right pleural effusion There is no evidence of left pleural effusio n, focal consolidation, or pneumothorax. Pulmonary vascularity: Unremarkable. Heart/mediastinum: Cardiomediastinal silhouette is enlarged and stable. Atherosclerotic calcificatio ns are seen in the aorta. Two lead cardiac conduction device overlying the left hemithorax with lead tips projecting over the right ventricle and right atrium. Musculoskeletal: No acute osseous pathology. Other findings: None IMPRESSION: Post right thoracentesis with small right pleural effusion remaining. No pneumothorax visualized.
[2023-07-16 04:12] LABS: Appearance,BF Clear (Clear)
[2023-07-16 04:47] LABS: Glucose, BF Source Pleural Fluid; Glucose, Body Fluid 137 mg/dL; LDH, Body Fluid Source Pleural Fluid; T. Protein, Body Fluid Source Pleural Fluid; Total Protein, Body Fluid 3310 mg/dL
== END ==
LOC: PROCWHC3 10:51
PROVIDERS: ATTEND Internal Medicine Critical Care Medicine
DX: J90 Pleural effusion, not elsewhere classified (principal); Z88.1 Allergy status to other antibiotic agents; Z88.0 Allergy status to penicillin; Z88.2 Allergy status to sulfonamides; Z88.8 Allergy status to other drugs, medicaments and biological substances
CPT/HCPCS: 89050; 85610; 87070; 87205; 87116; 87102; 87206; 82945; 83615; 84157; 71045; 96372; 32554; J0461